=== PATIENT | male | born 1955 | race Caucasian/White ===

== ENCOUNTER 2020-08-16 15:07 | Outpatient (RCR) | payer MEDICARE, MEDICAID, SELFPAY | END 2021-02-11 13:53 | disposition home or self-care (01) | LOC: HO.WCC 15:07 | PROVIDERS: PCP Internal Medicine; Visit Provider Physician Assistant | DX: I87.333 Chronic venous hypertension (idiopathic) with ulcer and inflammation of bilateral lower extremity (principal); L97.821 Non-pressure chronic ulcer of other part of left lower leg limited to breakdown of skin; L97.811 Non-pressure chronic ulcer of other part of right lower leg limited to breakdown of skin; L89.610 Pressure ulcer of right heel, unstageable; L89.629 Pressure ulcer of left heel, unspecified stage; L89.899 Pressure ulcer of other site, unspecified stage; R53.81 Other malaise | CPT/HCPCS: 10140; 11042; 11045; 97597; 97598; 99204; 99212 ==

== ENCOUNTER 2020-08-23 18:07 | Inpatient (IN) | payer MEDICARE, MEDICAID, SELFPAY ==
[2020-08-23] VITALS (9 sets, daily range): BP systolic 85–137; BP diastolic 21–70; PULSE 44–64; RESP 16–23; TEMP 32.9–36.1; O2SAT 94–97; BMI 32.3
--- NOTE | 2020-08-23 | XR_ITS ---
EXAMINATION: XR CHEST CLINICAL INFORMATION: Central line placement COMPARISON: 01/07/2020 TECHNIQUE: Frontal view of the chest was obtained. FINDINGS: Right internal jugular central venous catheter terminates near the cavoatrial junction. Cardiac leads overlie the chest. Cervical fusion hardware noted. The lungs are well expanded. Central vascular prominence with diffuse interstitial prominence and mild bronchial wall thickening. No pneumothorax. No significant pleural effusion. No dense consolidation. The cardiomediastinal silhouette is prominent, with a calcified aorta. Advanced degenerative changes at the left glenohumeral joint. IMPRESSION: Right internal jugular central venous catheter terminates near the cavoatrial junction. No pneumothorax. Findings suggestive of interstitial edema.
--- NOTE | 2020-08-23 | CT_ITS ---
EXAMINATION: CT HEAD WITHOUT CONTRAST CLINICAL INFORMATION: Slurred speech for 3 days. COMPARISON: CT scan of the head 02/26/2020. TECHNIQUE: Contiguous axial imaging was performed from the skull base to vertex without intravenous administration of contrast. Coronal and sagittal reformatted images were generated at the technologist workstation. This CT examination was performed using dose optimization techniques as appropriate, variously including the following: *Automated exposure control *Adjustment of mA and/or kV according to patient size (this includes techniques or standardized protocols for targeted exams where dose is matched to indication/reason for exam; i.e. extremities or head) *Use of iterative reconstruction technique DLP: 831 mGy-cm FINDINGS: There is no evidence of acute intracranial hemorrhage or territorial infarction. No abnormal mass effect or midline shift is seen. Uribe to white matter differentiation is well preserved. No extra-axial fluid collections are identified. The ventricles and sulci are commensurately prominent consistent with diffuse volume loss, similar compared to prior imaging. There are also areas of low-attenuation the periventricular and subcortical white matter consistent with chronic microvascular ischemic changes. There are no acute osseous findings. There is hyperostosis frontalis interna. There are degenerative changes of the bilateral temporomandibular joints. The mastoid air cells and visualized paranasal sinuses are well-aerated. There are secondary ostia in the medial maxillary sinus segovia bilaterally. IMPRESSION: 1. There are no acute bleeds or territorial infarcts. No masses are demonstrated. 2. There are chronic microvascular ischemic changes and there is diffuse volume loss.
--- NOTE | 2020-08-23 19:25 | ECG_ITS ---
Test Reason : LOW HEART RAT Blood Pressure : / mmHG Vent. Rate : 048 BPM Atrial Rate : 064 BPM P-R Int : 000 ms QRS Dur : 116 ms QT Int : 442 ms P-R-T Axes : 000 -09 068 degrees QTc Int : 394 ms Poor data quality Sinus bradycardia with 1st degree A-V block Low voltage QRS Incomplete right bundle branch block Nonspecific ST and T wave abnormality Abnormal ECG When compared with ECG of 07-JAN-2020 20:21, Nonspecific T wave abnormality has replaced inverted T waves in Inferior leads Nonspecific T wave abnormality now evident in Lateral leads Heart rate has decreased MA interval has increased Referred By: Kayla Posadas Electronically Signed By:TINY MORIN MD
--- NOTE | 2020-08-23 19:36 | ED.GENADULT ---
HPI - General Adult General Chief complaint: Altered Mental Status Stated complaint: lethargy, hr 40's/50's Time Seen by Provider: 08/23/20 19:15 Source: EMS Mode of arrival: EMS Limitations: other ( developmental delay) History of Present Illness HPI narrative: patient is sent from a custodial via ambulance for slurry speech for several days , for low heart rate in the 40s to 50s, and for lethargy. EMS reports that the patient has had slurry speech for 3-4 days according to the staff from the custodial, however the EMS crew states that they know the patient well and he has speech is slurry at baseline. Patient is awake alert and states that he feels normal. It was noted that his heart rate ranges between 40 and 55. this is new for the patient per the staff at the custodial. Patient denies chest pain, no shortness of breath, no dizziness. MD complaint: Bradycardia Onset (ago): day(s) Radiation: non-radiation Severity: moderate Related Data Home Medications Medication Instructions Recorded Confirmed Lasix See Rx Instructions .ROUTE .COMPLEX 08/23/20 08/23/20 aluminum 1 ea TOPICAL BID 08/23/20 08/23/20 aspirin 81 mg PO DAILY 08/23/20 08/23/20 carbamazepine 1 tab PO BID 08/23/20 08/23/20 levothyroxine 50 mcg PO DAILY 08/23/20 08/23/20 multivitamin [Daily Vitamin] 1 tab PO DAILY 08/23/20 08/23/20 nystatin 1 applic TOPICAL BID 08/23/20 08/23/20 vitamin B complex 1 cap PO QAM 08/23/20 08/23/20 Allergies Allergy/AdvReac Type Severity Reaction Status Date / Time No Known Allergies Allergy Unverified 08/01/20 15:20 [No Known Allergies*] Review of Systems Review of Systems: Constitutional: No Weight loss, No Fever, No Chills, No Night Sweats, ENT/Mouth: No Hearing loss, No Ear Pain, No Nasal Congestion, No Sinus Pain, No Hoarseness, No sore throat, No Rhinorrhea, No Swallowing Difficulty Eyes: No Eye Pain, No Swelling, No Redness, No Foreign Body, No Discharge, No Vision Changes Cardiovascular: No Chest Pain, No SOB, No Dyspnea on Exertion, No Orthopnea, No Edema, No Palpitations Respiratory: No Cough, No Sputum, No Wheezing, No Smoke Exposure, No Dyspnea Gastrointestinal: No Nausea, No Vomiting, No Diarrhea, No Constipation, No abdominal Pain, No Hematochezia, No Melena Genitourinary: no irregular bleeding, No Dysuria, No Urinary Frequency, No Hematuria, No Urinary Incontinence, No Urgency, No Flank Pain, No Urinary Flow Changes, No Hesitancy Musculoskeletal: No joint pain, No Myalgias, No Joint Swelling Skin: No Skin Lesions, No rash Neuro: No Weakness, No Numbness, No Paresthesias, No Loss of Consciousness, No Dizziness, No Headache reported per patient, per custodial staff patient has very speech Psych: No Anxiety/Panic, No Depression, No SI/HI/AH/VH Heme/Lymph: No Bruising, No Bleeding,No Lymphadenopathy Endocrine: No Polyuria, No Polydipsia, No Temperature Intolerance [facility] Past Medical History Medical History (Updated 08/24/20 @ 00:52 by Kayla Posadas MD) Diabetes type 2, controlled DVT (deep venous thrombosis) Hypothyroidism Morbid obesity Social History Social History Advance Directives: No Advance Directives Information Provided: Yes Advance Directives Date on File: 08/16/20 Physical Exam Vital Signs and I&O and Narrative: Vital Signs and I&O: Vital Signs Temp 98.2 F 08/24/20 00:44 Pulse 72 08/24/20 00:44 Resp 20 08/24/20 00:44 BP 123/51 L 08/24/20 00:44 Pulse Ox 96 08/24/20 00:44 Intake & Output 08/23/20 08/23/20 08/24/20 06:59 18:59 06:59 Intake Total 1 Balance 1 Weight 102.058 kg 118.4 kg Intake: Intake, IV Amoun t 1 Piperacillin S odium/Tazobactam 50 / 50 3.375 gm In 0. 9 % Sodium Chloride 50 ml @ 100 mls/hr IV ONCE ONE Rx#:[id number] 0.9 % Sodium C hloride 1,000 ml 2000 / 1999 @ 999 mls/hr I VCONT .Q1H1M EDUARDO Rx#:[id number] Norepinephrine Bitartrate/NS 8 2.711 / 2.711 mg In 250 ml @ Per Protocol IVCONT .Q0M SC H Rx#:[id number] Body Mass Index 37.4 Appearance: Alert. Oriented X2 . No acute distress. Eyes: Pupils equal, round and reactive to light. ENT: Pharynx normal. Neck: Normal inspection. Neck supple. No lymph nodes noted. No crepitus CVS: Normal heart rate and rhythm. Pulses normal. Normal S1 and S2 Respiratory: No respiratory distress. Breath sounds normal. No Wheezing. No rales Abdomen: Soft and nontender. No rigidity. No distention. good BS x4 Skin: Skin cold, lower extremities erythematous, possible source of cellulitis Extremities: +4 pitting edema bilaterally , see above Neuro: No motor deficit. No sensory deficit. Moving all extermities. No slurred speech. Course Reevaluation(s) Reevaluation #1: patient's heart rate remains around 45-50, patient's blood pressure 100 systolic, asymptomatic. Patient is on a Ramana Hugger, labs and CT scan pending. Patient was started on empiric antibiotics and IV fluids. EKG shows a heart rate of 48, QTC of 394, rhythm is unclear due to artifact, nonspecific T abnormalities in leads III aVL and AVF Time: 00:54 Reevaluation #2: focused exam: Patient is no stable, heart rate 68, blood pressure 122 systolic, warm, temperature 97 degrees F, good capillary refill, less than 2 seconds. Procedures Central Line Placement Right IJ: Time Out Performed: Yes Patient Placed on Monitor/Pulse Ox: Yes MD Prep: mask, gown and gloves Central Line Prep: Chlorhexidine scrub Local Anesthetic: lidocaine 1% Ultrasound Used for Placement: Yes Central Line Lumen Inserted: triple Post Procedure: sutured in place, good blood return, all ports aspirated, flushed, capped and sterile dressing applied Post Procedure X-Ray: tip of catheter in good position and no pneumothorax seen Patient Tolerated Procedure: well and no complications Complications: none Medical Decision Making MDM Narrative Medical decision making narrative: patient's ideal body weight is 73 kilos, equivalent to 1460 mL for sepsis IV fluid requirement. Lab Data Result diagrams: 08/23/20 19:41 08/23/20 19:41 Labs: Lab Results 08/23/20 08/23/20 08/23/20 Range/Units 19:41 19:41 19:41 WBC 3.8 L (4.8-10.8) X10*3/uL RBC 3.04 L (4.60-5.80) X10*6/uL Hgb 9.2 L (14.0-18.0) g/dl Hct 28.0 L (42-52) % MCV 92.1 (80-98) fL MCH 30.3 (27.0-33.0) pg MCHC 32.9 (31.0-36.0) g/dl RDW 15.7 (11.0-16.0) % Plt Count 85 L (160-400) X10*3/uL MPV 10.8 (9.4-12.4) fL Immature Gran % (Auto) 0.5 H (0.0-0.4) % Neut % (Auto) 78.1 H (45-73) % Lymph % (Auto) 14.1 L (20-40) % [place] % (Auto) 6.0 (2-11) % Eos % (Auto) 1.3 (0-4) % Baso % (Auto) 0.0 (0-2) % Lymph # (Auto) 0.5 L (1.2-4.9) X10*3/uL [place] # (Auto) 0.2 (0.1-1.2) X10*3/uL Eos # (Auto) 0.1 (0.0-0.4) X10*3/uL Baso # (Auto) 0.0 (0.0-0.2) X10*3/uL Abs Immat Gran (auto) 0.02 (0.00-0.03) X10*3/uL Absolute Neuts (auto) 3.0 (2.0-8.3) X10*3/uL Absolute Nucleated RBC 0.000 (0.0-0.012) X10*3/uL Nucleated RBC % (auto) 0.0 (0.0-0.2) /100WBC Smear Tech's Comments VERIFIED PT 11.7 (10.8-13.0) SEC INR 1.0 (0.9-1.1) APTT 51.1 H (24.1-38.0) SEC Sodium (135-145) mmol/L Potassium (3.3-5.1) mmol/l Chloride (96-108) mmol/L Carbon Dioxide (22-29) mmol/L Anion Gap (12-20) BUN (9-16) mg/dL Creatinine (0.5-1.4) mg/dL Estim Creat Clear Calc Estimated GFR Random Glucose (60-115) mg/dL Lactic Acid (0.5-2.0) mmol/L Calcium (8.4-10.2) mg/dL Total Bilirubin 0.2 (0.0-1.0) mg/dL Direct Bilirubin 0.2 (0.0-0.5) mg/dL AST 31 (5-37) U/L ALT 32 (0-40) U/L Alkaline Phosphatase 91 (39-117) U/L B-Natriuretic Peptide (<100) pg/mL Total Protein 6.0 L (6.5-8.0) g/dL Albumin 3.6 (3.5-5.0) g/dL TSH (0.32-4.0) mIU/mL Urine Color Urine Appearance Urine pH (5.0-8.0) Ur Specific Kimberly (1.005-1.025) Urine Protein (NEG-TRACE) MG/DL Urine Glucose (UA) (NEG) MG/DL Urine Ketones (NEG) MG/DL Urine Blood (NEG) Urine Nitrite (NEG) Ur Leukocyte Esterase (NEG) 08/23/20 08/23/20 08/23/20 Range/Units 19:41 19:41 19:41 WBC (4.8-10.8) X10*3/uL RBC (4.60-5.80) X10*6/uL Hgb (14.0-18.0) g/dl Hct (42-52) % MCV (80-98) fL MCH (27.0-33.0) pg MCHC (31.0-36.0) g/dl RDW (11.0-16.0) % Plt Count (160-400) X10*3/uL MPV (9.4-12.4) fL Immature Gran % (Auto) (0.0-0.4) % Neut % (Auto) (45-73) % Lymph % (Auto) (20-40) % [place] % (Auto) (2-11) % Eos % (Auto) (0-4) % Baso % (Auto) (0-2) % Lymph # (Auto) (1.2-4.9) X10*3/uL [place] # (Auto) (0.1-1.2) X10*3/uL Eos # (Auto) (0.0-0.4) X10*3/uL Baso # (Auto) (0.0-0.2) X10*3/uL Abs Immat Gran (auto) (0.00-0.03) X10*3/uL Absolute Neuts (auto) (2.0-8.3) X10*3/uL Absolute Nucleated RBC (0.0-0.012) X10*3/uL Nucleated RBC % (auto) (0.0-0.2) /100WBC Smear Tech's Comments PT (10.8-13.0) SEC INR (0.9-1.1) APTT (24.1-38.0) SEC Sodium 136 (135-145) mmol/L Potassium 5.4 H (3.3-5.1) mmol/l Chloride 103 (96-108) mmol/L Carbon Dioxide 29 (22-29) mmol/L Anion Gap 9 L (12-20) BUN 17 H (9-16) mg/dL Creatinine 0.66 (0.5-1.4) mg/dL Estim Creat Clear Calc 133.5 Estimated GFR > 60 Random Glucose 87 (60-115) mg/dL Lactic Acid 0.5 (0.5-2.0) mmol/L Calcium 10.1 (8.4-10.2) mg/dL Total Bilirubin (0.0-1.0) mg/dL Direct Bilirubin (0.0-0.5) mg/dL AST (5-37) U/L ALT (0-40) U/L Alkaline Phosphatase (39-117) U/L B-Natriuretic Peptide 218 H (<100) pg/mL Total Protein (6.5-8.0) g/dL Albumin (3.5-5.0) g/dL TSH (0.32-4.0) mIU/mL Urine Color Urine Appearance Urine pH (5.0-8.0) Ur Specific Kimberly (1.005-1.025) Urine Protein (NEG-TRACE) MG/DL Urine Glucose (UA) (NEG) MG/DL Urine Ketones (NEG) MG/DL Urine Blood (NEG) Urine Nitrite (NEG) Ur Leukocyte Esterase (NEG) 08/23/20 08/23/20 Range/Units 19:41 20:49 WBC (4.8-10.8) X10*3/uL RBC (4.60-5.80) X10*6/uL Hgb (14.0-18.0) g/dl Hct (42-52) % MCV (80-98) fL MCH (27.0-33.0) pg MCHC (31.0-36.0) g/dl RDW (11.0-16.0) % Plt Count (160-400) X10*3/uL MPV (9.4-12.4) fL Immature Gran % (Auto) (0.0-0.4) % Neut % (Auto) (45-73) % Lymph % (Auto) (20-40) % [place] % (Auto) (2-11) % Eos % (Auto) (0-4) % Baso % (Auto) (0-2) % Lymph # (Auto) (1.2-4.9) X10*3/uL [place] # (Auto) (0.1-1.2) X10*3/uL Eos # (Auto) (0.0-0.4) X10*3/uL Baso # (Auto) (0.0-0.2) X10*3/uL Abs Immat Gran (auto) (0.00-0.03) X10*3/uL Absolute Neuts (auto) (2.0-8.3) X10*3/uL Absolute Nucleated RBC (0.0-0.012) X10*3/uL Nucleated RBC % (auto) (0.0-0.2) /100WBC Smear Tech's Comments PT (10.8-13.0) SEC INR (0.9-1.1) APTT (24.1-38.0) SEC Sodium (135-145) mmol/L Potassium (3.3-5.1) mmol/l Chloride (96-108) mmol/L Carbon Dioxide (22-29) mmol/L Anion Gap (12-20) BUN (9-16) mg/dL Creatinine (0.5-1.4) mg/dL Estim Creat Clear Calc Estimated GFR Random Glucose (60-115) mg/dL Lactic Acid (0.5-2.0) mmol/L Calcium (8.4-10.2) mg/dL Total Bilirubin (0.0-1.0) mg/dL Direct Bilirubin (0.0-0.5) mg/dL AST (5-37) U/L ALT (0-40) U/L Alkaline Phosphatase (39-117) U/L B-Natriuretic Peptide (<100) pg/mL Total Protein (6.5-8.0) g/dL Albumin (3.5-5.0) g/dL TSH 3.24 (0.32-4.0) mIU/mL Urine Color YELLOW Urine Appearance CLEAR Urine pH 5.5 (5.0-8.0) Ur Specific Kimberly 1.020 (1.005-1.025) Urine Protein NEG (NEG-TRACE) MG/DL Urine Glucose (UA) NEG (NEG) MG/DL Urine Ketones NEG (NEG) MG/DL Urine Blood NEG (NEG) Urine Nitrite NEG (NEG) Ur Leukocyte Esterase NEG (NEG) Critical Care Time Critical Care Time Critical Care Time: Yes Total Critical Care Time: 120 Attestation: Discharge Plan Discharge Clinical Impression: Altered mental status, Sepsis associated hypotension, Cellulitis, Thrombocytopenia Patient Disposition: Admitted As Inpatient Prescriptions: No Action levothyroxine 50 mcg tablet 50 mcg PO DAILY RF: 0 aspirin 81 mg PO DAILY RF: 0 multivitamin [Daily Vitamin] Tablet 1 tab PO DAILY RF: 0 carbamazepine 400 mg tablet extended release 12 hr 1 tab PO BID RF: 0 nystatin 100,000 unit/gram powder 1 applic topical BID RF: 0 vitamin B complex Capsule 1 cap PO QAM RF: 0 Lasix See Rx Instructions .ROUTE .COMPLEX RF: 0 aluminum Paste 1 ea TOPICAL BID RF: 0
[2020-08-23 20:10] LABS: Hemoglobin 9.2 g/dl (14.0-18.0); MANUAL DIFF FLAG SCAN; PLT CLUMP 1; Red Cell Distribution Width 15.7 % (11.0-16.0); SCAN SMEAR FLAG 1
--- NOTE | 2020-08-23 20:10 | PC.NURSE ---
duane from detention for update. [phone]
[2020-08-23 20:12] LABS: Eosinophils Absolute Auto 0.1 X10*3/uL (0.0-0.4); Eosinophils Percent Auto 1.3 % (0-4); Imm Gran Abs Auto 0.02 X10*3/uL (0.00-0.03); Imm Gran Pct Auto 0.5 % (0.0-0.4); Lymphocytes Absolute Auto 0.5 X10*3/uL (1.2-4.9); Lymphocytes Percent Auto 14.1 % (20-40); Mean Corpuscular HGB Conc 32.9 g/dl (31.0-36.0); Mean Corpuscular Hemoglobin 30.3 pg (27.0-33.0); Mean Corpuscular Volume 92.1 fL (80-98); Mean Platelet Volume 10.8 fL (9.4-12.4); Monocytes Absolute Auto 0.2 X10*3/uL (0.1-1.2); Neutrophils Percent Auto 78.1 % (45-73); Red Blood Count 3.04 X10*6/uL (4.60-5.80); White Blood Count 3.8 X10*3/uL (4.8-10.8)
[2020-08-23 20:24] LABS: Platelet Count 85 X10*3/uL (160-400)
--- NOTE | 2020-08-23 20:31 | PC.NURSE ---
pt awake, denies any complaints at this time. pt confused to time and place. pt on monitor with hr of 46. Henley inserted with temp probe without difficulty, sample sent to lab. temp at this time 92.3 aware. blood cultures obtained at this time. awaiting further orders.
[2020-08-23 20:33] LABS: Lactic Acid 0.5 mmol/L (0.5-2.0)
[2020-08-23 20:34] LABS: Partial Thromboplastin Time 51.1 SEC (24.1-38.0)
[2020-08-23 20:37] LABS: Alanine Aminotransferase 32 U/L (0-40); Albumin Level 3.6 g/dL (3.5-5.0); Alkaline Phosphatase 91 U/L (39-117); Aspartate Amino Transferase 31 U/L (5-37); Bilirubin Direct 0.2 mg/dL (0.0-0.5); Bilirubin Total 0.2 mg/dL (0.0-1.0)
[2020-08-23 20:38] LABS: Prothrombin Time 11.7 SEC (10.8-13.0)
[2020-08-23 20:41] LABS: Anion Gap 9 (12-20); Blood Urea Nitrogen 17 mg/dL (9-16); Calcium 10.1 mg/dL (8.4-10.2); Carbon Dioxide 29 mmol/L (22-29); Chloride 103 mmol/L (96-108); Creatinine Clr Calc Pharmacy 133.5; Estimated Glomerular Filt Rate > 60; Glucose Random 87 mg/dL (60-115); Potassium 5.4 mmol/l (3.3-5.1); Sodium 136 mmol/L (135-145)
[2020-08-23 20:50] LABS: SLIDE REVIEW VERIFIED
[2020-08-23 20:59] LABS: Glucose Urine UA NEG (NEG); Leukocyte Esterase Urine NEG (NEG); Nitrite Urine NEG (NEG); PH 5.5 (5.0-8.0); Urine Blood NEG (NEG); Urine Ketones NEG (NEG); Urine Protein NEG (NEG-TRACE)
[2020-08-23 21:02] LABS: Appearance Urine CLEAR; Color Urine YELLOW
[2020-08-23 21:33] LABS: TSH reflex Free T4 3.24 mIU/mL (0.32-4.0)
[2020-08-23] MEDS: 0.9 % Sodium Chloride 1,000 ML 999 ML IVCONT ×2 (21:37→21:41)
[2020-08-23] MEDS: Piperacillin Sodium/Tazobactam 3.375 GM in 0.9 % Sodium Chloride 50 ML IV (21:47)
--- NOTE | 2020-08-23 21:49 | PC.NURSE ---
When obtaining VS found pt to be hypotensive. IV was previously established, started IV fluids as previously ordered and gave antibiotics. Updated MD to PT vital signs and Updated bedside RN> Will continue to monitor at bedside
[2020-08-23 22:09] LABS: B Type Natriuretic Peptide 218 pg/mL (<100)
--- NOTE | 2020-08-23 23:00 | PC.NURSE ---
MD inserted 7french, 16cm central line to right IJ
[2020-08-24] VITALS (28 sets, daily range): BP systolic 94–132; BP diastolic 35–68; PULSE 10–75; RESP 10–22; TEMP 35.8–36.8; O2SAT 90–97; BMI 37.4; BMI 35.9
--- NOTE | 2020-08-24 | CT_ITS ---
EXAMINATION: CT CHEST WITHOUT CONTRAST CLINICAL INFORMATION: Sepsis. Left lower lobar pneumonia. COMPARISON: Chest radiograph done on 08/23/2020. TECHNIQUE: Multidetector volumetric CT imaging of the chest was done. Axial MIP volume rendering provided. Sagittal and coronal reformatted images were obtained. This CT examination was performed using dose optimization techniques as appropriate, variously including the following: *Automated exposure control *Adjustment of mA and/or kV according to patient size (this includes techniques or standardized protocols for targeted exams where dose is matched to indication/reason for exam; i.e. extremities or head) *Use of iterative reconstruction technique DLP: 602.0 mGy-cm FINDINGS: BUILDING PRESSURE WASHER: Bibasilar airspace disease is present (left greater than right). Right-sided central line is present with its tip seen projecting at the cavoatrial junction. LUNGS: Bibasilar airspace disease is present (left greater than right). Specific note is made of hyperdense material within the lung robledo, likely represent aspiration. No dense airspace consolidation. The tracheobronchial tree is patent. MEDIASTINUM: Right IJ central catheter is noted with its tip seen projecting at the cavoatrial junction. Mild cardiomegaly is noted. The mediastinum is slightly displaced to the left. There are no definite pathologically enlarged mediastinal and/or hilar lymphadenopathy identified on this nonenhanced study. PLEURA: There is no pleural effusion. No pleural mass or thickening. AXILLA: No lymphadenopathy. UPPER ABDOMEN: The gallbladder appears contracted with radiopaque gallstones. Rim calcified perihepatic mass is noted around the right lobe measuring approximately 4.0 x 2.0 cm (image 456 series 5), may represent calcified subcapsular hematoma or other processes. Please correlate clinically. There is no adrenal mass present. 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 IMPRESSION: 1. Bibasilar hyperdense airspace opacities are noted (left greater than right), likely represent aspiration pneumonia. 2. No CT evidence of any pleural or pericardial effusion. 3. The gallbladder appears contracted containing radiopaque gallstones. Rim calcified perihepatic mass is noted around the right lobe of the liver, indeterminate etiology, appears chronic.
--- NOTE | 2020-08-24 | US_ITS ---
EXAMINATION: BILATERAL LOWER EXTREMITY VENOUS ULTRASOUND CLINICAL INFORMATION: History of DVT. Off Coumadin. COMPARISON: None. TECHNIQUE: Doppler spectral analysis and color flow Doppler imaging was performed of the bilateral lower extremity. Compression and augmentation maneuvers were performed. Slightly technically limited since the procedure was done portably and due to patient's body habitus and presence of soft tissue edema. FINDINGS: The bilateral common femoral, femoral, popliteal and calf veins were well-identified and normal. They demonstrate normal compressibility and color fill-in. IMPRESSION: No evidence for bilateral lower extremity deep vein thrombosis.
--- NOTE | 2020-08-24 00:27 | PC.NURSE ---
tai fragoso/yolanda by this rn for temp of 98.2. primary rn aware
--- NOTE | 2020-08-24 01:17 | P.HPCC_ITS ---
History of Present Illness Date of Service: 08/24/20 <PHYLLIS Baxter - Last Filed: 08/24/20 04:07> Chief Complaint: Altered Mental status <PHYLLIS Baxter - Last Filed: 08/24/20 04:07> Patient is a 64-year-old male with a past medical history of hypertension, hypothyroid, intellectual disability, DVT was on warfarin unclear if he still is, diabetes type 2, anemia, morbid obesity and multiple falls who lives in a alf. He was BIBA to the ED because the alf said he was having 3-4 days of slurred speech, low heart rate in the 40s and 50s and lethargy. the EMS crew knows the patient well and they said he is speaking in at his baseline. The patient stated he felt well and normal. In the ED, patient's vital signs were notable for hypothermia at 91.2 degrees F, heart rate of 44 and a BP of 87/21. Patient's labs were notable for low WBC 3.8, low RBC 3.04, low H&H 9.2 & 28 respectively. Platelets were low at 85. PT/INR were wnl but aPTT was elevated at 51.1. chemistries were WNL with the exception of potassium slightly elevated at 5.4 and BUN slightly elevated at 17. BNP was elevated at 218 and TSH was WNL at 3.24. urinalysis was negative for infection. Head CT was negative for anything acute and CXR showed interstitial edema (this was done after pt rec'd 1.5L of IVF). While in the ED, the patient received 1.5 L of fluids as per sepsis protocol, he was also placed on a Ramana Hugger. A TLC was placed and pt is on a Levophed drip. His temperature, BP and HR have normalized. He was also given a dose of Zosyn, source of infection is unknown yet. The case discussed with Dr. Flores, patient will be admitted to the ICU, he agreed with assessment and plan. <PHYLLIS Baxter - Last Filed: 08/24/20 04:07> Review of Systems Review of Systems: Constitutional: No Weight loss, No Fever, No Chills, No Night Sweats, ENT/Mouth: No Hearing loss, No Ear Pain, No Nasal Congestion, No Sinus Pain, No Hoarseness, No sore throat, No Rhinorrhea, No Swallowing Difficulty Eyes: No Eye Pain, No Swelling, No Redness, No Foreign Body, No Discharge, No Vision Changes Cardiovascular: No Chest Pain, No SOB, No Dyspnea on Exertion, No Orthopnea, No Edema, No Palpitations Respiratory: No Cough, No Sputum, No Wheezing, No Smoke Exposure, No Dyspnea Gastrointestinal: No Nausea, No Vomiting, No Diarrhea, No Constipation, No abdominal Pain, No Hematochezia, No Melena Genitourinary: no irregular bleeding, No Dysuria, No Urinary Frequency, No Hematuria, No Urinary Incontinence, No Urgency, No Flank Pain, No Urinary Flow Changes, No Hesitancy Musculoskeletal: No joint pain, No Myalgias, No Joint Swelling Skin: No Skin Lesions, No rash Neuro: No Weakness, No Numbness, No Paresthesias, No Loss of Consciousness, No Dizziness, No Headache reported per patient, per alf staff patient has very speech Psych: No Anxiety/Panic, No Depression, No SI/HI/AH/VH Heme/Lymph: No Bruising, No Bleeding,No Lymphadenopathy Endocrine: No Polyuria, No Polydipsia, No Temperature Intolerance <PHYLLIS Baxter - Last Filed: 08/24/20 04:07> [facility] Past Medical History Medical History: Medical History (Updated 08/24/20 @ 03:34 by PHYLLIS Baxter) Anemia Diabetes type 2, controlled DVT (deep venous thrombosis) Hypertension Hypothyroidism Morbid obesity Venous insufficiency of both lower extremities <PHYLLIS Baxter - Last Filed: 08/24/20 04:07> Functional capacity: wheelchair bound <PHYLLIS Baxter - Last Filed: 08/24/20 04:07> Family History Family history: reviewed and not pertinent <PHYLLIS Baxter - Last Filed: 08/24/20 04:07> Social History Social History: Social History (Updated 08/24/20 @ 02:24 by PHYLLIS Baxter) Housing Other:: alf Alcohol intake: never Smoking Status: Never smoker Use of substances other than those prescribed or required for medical reasons: No Currently Displaying Signs/Symptoms of Drug Intoxication Withdrawal: No Advance Directives: No Advance Directives Information Provided: Yes Advance Directives Date on File: 08/16/20 Do you have thoughts of harming others: None Do you have a plan to hurt others: No Plan Current occupational status: disabled <PHYLLIS Baxter - Last Filed: 08/24/20 04:07> Travel History History of recent travel: No <PHYLLIS Baxter - Last Filed: 08/24/20 04:07> Meds Allergies/Adverse reactions: Allergies Allergy/AdvReac Type Severity Reaction Status Date / Time No Known Allergies Allergy Verified 08/24/20 07:57 [No Known Allergies*] <PHYLLIS Baxter - Last Filed: 08/24/20 04:07> Home medications: Home Medications Medication Instructions Recorded Confirmed Type aluminum 1 ea TOPICAL BID 08/23/20 08/23/20 History carbamazepine 400 mg PO BID 08/23/20 08/24/20 History furosemide 40 mg MOWEFR@0800 08/23/20 08/24/20 History levothyroxine 50 mcg PO DAILY 08/23/20 08/23/20 History multivitamin [Daily Vitamin] 1 tab PO DAILY 08/23/20 08/23/20 History nystatin 1 applic TOPICAL BID 08/23/20 08/23/20 History vitamin B complex 1 cap PO QAM 08/23/20 08/23/20 History acetaminophen 650 mg PO Q4H PRN 08/24/20 08/24/20 History aspirin 81 mg PO DAILY 08/24/20 08/24/20 History clotrimazole [Mycelex OTC] 1 applic TOPICAL BID PRN 08/24/20 08/24/20 History terbinafine HCl [Lamisil] 1 applic TOPICAL BEDTIME 08/24/20 08/24/20 History zinc oxide 1 applic TOPICAL BID PRN 08/24/20 08/24/20 History <PHYLLIS Baxter - Last Filed: 08/24/20 04:07> Physical Exam Vital Signs and I&O and Narrative: Vital Signs and I&O: Temp Pulse Resp BP Pulse Ox 08/24/20 01:29 98.2 F 71 18 120/53 L 08/24/20 00:44 98.2 F 72 20 123/51 L 96 08/24/20 00:28 98.2 F 69 20 122/52 L 95 08/24/20 00:17 109/48 L 08/24/20 00:13 97.9 F 72 18 94/35 L 97 08/23/20 23:46 88/37 L 08/23/20 23:34 97.0 F 63 20 100/37 L 94 08/23/20 23:18 96.4 F L 63 23 H 101/34 L 95 08/23/20 23:01 95.9 F L 64 17 94/35 L 95 08/23/20 22:00 94.3 F L 51 16 85/35 L 97 08/23/20 21:51 94.3 F L 51 16 85/35 L 97 08/23/20 21:30 93.7 F L 49 L 17 87/21 L 97 08/23/20 20:35 46 L 18 08/23/20 18:30 91.2 F L 44 L 20 100/47 L Intake & Output 08/23/20 08/23/20 08/24/20 06:59 18:59 06:59 Intake Total / 1 Balance / 1 Weight 102.058 kg 118.4 kg Intake: Intake, IV Amoun t 1 Piperacillin S odium/Tazobactam 50 / 50 3.375 gm In 0. 9 % Sodium Chloride 50 ml @ 100 mls/hr IV ONCE ONE Rx#:[id number] 0.9 % Sodium C hloride 1,000 ml 2000 / 2000 @ 999 mls/hr I VCONT .Q1H1M EDUARDO Rx#:[id number] Norepinephrine Bitartrate/NS 8 2.711 / 2.711 mg In 250 ml @ Per Protocol IVCONT .Q0M SC H Rx#:[id number] Body Mass Index 37.4 <PHYLLIS Baxter - Last Filed: 08/24/20 04:07> Const: General: no acute distress, alert and awake <PHYLLIS Baxter Last Filed: 08/24/20 04:07> Nutritional Appearance: obese <PHYLLIS Baxter Last Filed: 08/24/20 04:07> HENMT: Head: Yes normal to inspection <Lisa Nichole AK - Last Filed: 08/24/20 04:07> Eyes: General: appearance normal, both eyes and all related structures <PHYLLIS Baxter - Last Filed: 08/24/20 04:07> Neck: Neck: Yes normal visual inspection and Yes supple <iLsa Nichole AK - Last Filed: 08/24/20 04:07> Chest: Chest palpation & inspection: normal inspection of the chest <Lisa Nichole AK - Last Filed: 08/24/20 04:07> Resp: Effort & Inspection: normal respiratory effort and able to speak in complete sentences <Lisa Nichole AK - Last Filed: 08/24/20 04:07> Auscultation: clear to auscultation bilaterally <Lisa Nichole AK - Last Filed: 08/24/20 04:07> Cardio: Rate: regular rate <PHYLLIS Baxter - Last Filed: 08/24/20 04:07> Rhythm: regular rhythm <Lisa Nichole AK - Last Filed: 08/24/20 04:07> Heart sounds: S1 normal heart sound present and S2 normal heart sound present <Lisa Nichole AK - Last Filed: 08/24/20 04:07> GI: Inspection: Yes normal to inspection <Lisa Nichole AK - Last Filed: 08/24/20 04:07> Palpation (GI): Soft to palpation <Lisa Nichole AK - Last Filed: 08/24/20 04:07> Auscultation: normal bowel sounds <PHYLLIS Baxter - Last Filed: 08/24/20 04:07> Skin: Wounds: wounds noted (LLE lateral side stage 3 ulcer approx 7cm x 5cm) <PHYLLIS Baxter - Last Filed: 08/24/20 04:07> Extrem: General: Yes no calf tenderness, Yes edema (2+ pitting edema bilateral LE) and Yes venous stasis dermatitis (bilateral LE) <PHYLLIS Baxter - Last Filed: 08/24/20 04:07> Results Labs Labs: Laboratory Tests 08/23/20 08/23/20 08/23/20 19:41 19:41 19:41 WBC 3.8 L RBC 3.04 L Hgb 9.2 L Hct 28.0 L MCV 92.1 MCH 30.3 MCHC 32.9 RDW 15.7 Plt Count 85 L MPV 10.8 Immature Gran % (Auto) 0.5 H Neut % (Auto) 78.1 H Lymph % (Auto) 14.1 L [place] % (Auto) 6.0 Eos % (Auto) 1.3 Baso % (Auto) 0.0 Lymph # (Auto) 0.5 L [place] # (Auto) 0.2 Eos # (Auto) 0.1 Baso # (Auto) 0.0 Abs Immat Gran (auto) 0.02 Absolute Neuts (auto) 3.0 Absolute Nucleated RBC 0.000 Nucleated RBC % (auto) 0.0 Smear Tech's Comments VERIFIED PT 11.7 INR 1.0 APTT 51.1 H Sodium Potassium Chloride Carbon Dioxide Anion Gap BUN Creatinine Estim Creat Clear Calc Estimated GFR Random Glucose Lactic Acid Calcium Total Bilirubin 0.2 Direct Bilirubin 0.2 AST 31 ALT 32 Alkaline Phosphatase 91 B-Natriuretic Peptide Total Protein 6.0 L Albumin 3.6 TSH Urine Color Urine Appearance Urine pH Ur Specific [place] Urine Protein Urine Glucose (UA) Urine Ketones Urine Blood Urine Nitrite Ur Leukocyte Esterase 08/23/20 08/23/20 08/23/20 19:41 19:41 19:41 WBC RBC Hgb Hct MCV MCH MCHC RDW Plt Count MPV Immature Gran % (Auto) Neut % (Auto) Lymph % (Auto) [place] % (Auto) Eos % (Auto) Baso % (Auto) Lymph # (Auto) [place] # (Auto) Eos # (Auto) Baso # (Auto) Abs Immat Gran (auto) Absolute Neuts (auto) Absolute Nucleated RBC Nucleated RBC % (auto) Smear Tech's Comments PT INR APTT Sodium 136 Potassium 5.4 H Chloride 103 Carbon Dioxide 29 Anion Gap 9 L BUN 17 H Creatinine 0.66 Estim Creat Clear Calc 133.5 Estimated GFR > 60 Random Glucose 87 Lactic Acid 0.5 Calcium 10.1 Total Bilirubin Direct Bilirubin AST ALT Alkaline Phosphatase B-Natriuretic Peptide 218 H Total Protein Albumin TSH Urine Color Urine Appearance Urine pH Ur Specific [place] Urine Protein Urine Glucose (UA) Urine Ketones Urine Blood Urine Nitrite Ur Leukocyte Esterase 08/23/20 08/23/20 19:41 20:49 WBC RBC Hgb Hct MCV MCH MCHC RDW Plt Count MPV Immature Gran % (Auto) Neut % (Auto) Lymph % (Auto) [place] % (Auto) Eos % (Auto) Baso % (Auto) Lymph # (Auto) [place] # (Auto) Eos # (Auto) Baso # (Auto) Abs Immat Gran (auto) Absolute Neuts (auto) Absolute Nucleated RBC Nucleated RBC % (auto) Smear Tech's Comments PT INR APTT Sodium Potassium Chloride Carbon Dioxide Anion Gap BUN Creatinine Estim Creat Clear Calc Estimated GFR Random Glucose Lactic Acid Calcium Total Bilirubin Direct Bilirubin AST ALT Alkaline Phosphatase B-Natriuretic Peptide Total Protein Albumin TSH 3.24 Urine Color YELLOW Urine Appearance CLEAR Urine pH 5.5 Ur Specific [place] 1.020 Urine Protein NEG Urine Glucose (UA) NEG Urine Ketones NEG Urine Blood NEG Urine Nitrite NEG Ur Leukocyte Esterase NEG <PHYLLIS Baxter - Last Filed: 08/24/20 04:07> Assessment and Plan (1) Altered mental status: Start date: 08/23/20 <PHYLLIS Baxter - Last Filed: 08/24/20 04:07> Qualifiers: Altered mental status type: disorientation Qualified Code(s): R41.0 - Disorientation, unspecified <PHYLLIS Baxter - Last Filed: 08/24/20 04:07> Status: Acute <PHYLLIS Baxter - Last Filed: 08/24/20 04:07> patient appears alert an oriented and per EMS crew at his baseline for speech. patient does have an intellectual disability. Monitor. <PHYLLIS Baxter - Last Filed: 08/24/20 04:07> (2) Sepsis associated hypotension: Start date: 08/23/20 <PHYLLIS Baxter - Last Filed: 08/24/20 04:07> Status: Acute <PHYLLIS Baxter Last Filed: 08/24/20 04:07> On Levophed, we will give a dose of Vanco, get a respiratory panel, influenza A and B, RSV and COVID testing. continue to monitor VS <PHYLLIS Baxter - Last Filed: 08/24/20 04:07> (3) Cellulitis: Start date: 08/23/20 <PHYLLIS Baxter - Last Filed: 08/24/20 04:07> Qualifiers: Laterality: unspecified laterality Site of cellulitis: extremity Site of cellulitis of extremity: lower extremity Qualified Code(s): L03.119 - Cellulitis of unspecified part of limb <Lisa Nichole PA - Last Filed: 08/24/20 04:07> Problem details: possible cellulitis on LLE, pt had a similar presentation with hypothermia to [facility] [place] 12/2019, end result was cellulitis, was on vanco for 3 days then PO doxy <Lisa Nichole PA - Last Filed: 08/24/20 04:07> Status: Acute <PHYLLIS Baxter - Last Filed: 08/24/20 04:07> Continue Vanco <Lisa Nichole PA - Last Filed: 08/24/20 04:07> (4) Pancytopenia: Start date: 08/23/20 <PHYLLIS Baxter - Last Filed: 08/24/20 04:07> Problem details: as per labs <PHYLLIS Baxter - Last Filed: 08/24/20 04:07> Status: Acute <PHYLLIS Baxter - Last Filed: 08/24/20 04:07> Monitor labs <PHYLLIS Baxter - Last Filed: 08/24/20 04:07> (5) Hypothyroidism: Status: Chronic <PHYLLIS Baxter - Last Filed: 08/24/20 04:07> Continue Levothyroxine, TSH WNL. <PHYLLIS Baxter - Last Filed: 08/24/20 04:07> (6) Venous insufficiency of both lower extremities: Problem details: patient evaluated in December [address] Rios, now has left LE stage 3 ulcer <PHYLLIS Baxter - Last Filed: 08/24/20 04:07> Status: Acute <PHYLLIS Baxter - Last Filed: 08/24/20 04:07> wet to dry dressing and keep covered, ? wound care consult <PHYLLIS Baxter - Last Filed: 08/24/20 04:07>
--- NOTE | 2020-08-24 01:29 | PC.NURSE ---
ICU UNABLE TO TAKE REPORT, WILL RETURN CALL.
[2020-08-24 02:50] LABS: SARS COV2 PCR INHOUSE NEGATIVE (Negative)
[2020-08-24 06:05] LABS: Influenza A PCR NEGATIVE (Negative); Influenza B PCR NEGATIVE (Negative); Resp Syncy Virus RNA Qual PCR NEGATIVE (Negative)
--- NOTE | 2020-08-24 06:25 | PC.NURSE ---
admit [id number] from er dept...awake..converse with slow slurred speech...disoriented to time/recent events....respirations easy..sao2 96-97% room air...right ij tlc with levophed 0.03 mcg/kg/min...bp stable...wallace yellow urine...remains off warming blanket with normal temperature..nsr/s.renetta with 1st-degree av-block..hr 56-68..rare pvc..denies pain or discomfort..groin folds excoriated...lower legs reddened and edematous...left lower lateral leg with 7x5cm open wound with purulent drainGE..ICU PA PRESENT..PHOTOS TAKEN...WOUND COVERED WITH WET-DRY DRESSING PER PA
[2020-08-24 08:20] LABS: Adenovirus PCR Not Detected (Not Detect.); Bordetella parapertussis PCR Not Detected (Not Detect.); Bordetella pertussis PCR Not Detected (Not Detect.); Chlamydia pneumoniae PCR Not Detected (Not Detect.); Coronavirus 229E PCR Not Detected (Not Detect.); Coronavirus HKU1 PCR Not Detected (Not Detect.); Coronavirus NL63 PCR Not Detected (Not Detect.); Coronavirus OC43 PCR Not Detected (Not Detect.); Human metapneumovirus PCR Not Detected (Not Detect.); Influenza A PCR Not Detected (Not Detect.); Influenza B PCR Not Detected (Not Detect.); Mycoplasma pneumoniae PCR Not Detected (Not Detect.); Parainfluenza 1 PCR Not Detected (Not Detect.); Parainfluenza 2 PCR Not Detected (Not Detect.); Parainfluenza 3 PCR Not Detected (Not Detect.); Parainfluenza 4 PCR Not Detected (Not Detect.); RSV PCR Not Detected (Not Detect.); Rhino/Enterovirus PCR Not Detected (Not Detect.); SARS-CoV-2 PCR Not Detected (Not Detect.)
[2020-08-24 08:23] LABS: B Type Natriuretic Peptide 240 pg/mL (<100)
[2020-08-24 08:40] LABS: Erythrocyte Sedimentation Rate 19 MM/HR (0-15)
[2020-08-24 08:43] LABS: Red Cell Distribution Width 15.9 % (11.0-16.0)
[2020-08-24 08:44] LABS: Base Excess VBG 1.8 mmol/L; Blood Gas Serial # 5414; HCO3 VBG 29 mmol/L; Oxygen Saturation VBG 81.1 %; PCO2 VBG 59 mmhg; PO2 VBG 48 mmhg; pH VBG 7.31 (7.32-7.43)
[2020-08-24 08:45] LABS: Hematocrit 27.3 % (42-52); Hemoglobin 8.9 g/dl (14.0-18.0); Mean Corpuscular HGB Conc 32.6 g/dl (31.0-36.0); Mean Corpuscular Hemoglobin 30.5 pg (27.0-33.0); Mean Corpuscular Volume 93.5 fL (80-98); Mean Platelet Volume 11.3 fL (9.4-12.4); NRBC Pct Auto 0.4 /100WBC (0.0-0.2); Platelet Count 102 X10*3/uL (160-400); Red Blood Count 2.92 X10*6/uL (4.60-5.80); White Blood Count 4.5 X10*3/uL (4.8-10.8)
[2020-08-24 09:00] LABS: Prothrombin Time 11.5 SEC (10.8-13.0)
[2020-08-24 09:03] LABS: Partial Thromboplastin Time 46.9 SEC (24.1-38.0)
[2020-08-24] MEDS: Enoxaparin Sodium 120 MG/0.8 ML SYRINGE 115 MG SUBCUT (09:56)
[2020-08-24] MEDS: 0.9 % Sodium Chloride Flush 3 ML SYRINGE IVFLUSH ×3 (09:56→21:23)
[2020-08-24] MEDS: Furosemide 20 MG/2 ML VIAL IVPUSH (10:55)
[2020-08-24] MEDS: Levothyroxine Sodium 100 MCG VIAL 25 MCG IVPUSH (10:55)
[2020-08-24 13:27] LABS: Prothrombin Time 11.8 SEC (10.8-13.0)
[2020-08-24 13:30] LABS: Partial Thromboplastin Time 57.8 SEC (24.1-38.0)
--- NOTE | 2020-08-24 13:55 | PM.CCN ---
Critical Care Event Note Summary Code activated: Yes Narrative: This case had a high probability of a clinically significant, sudden, or life threatening deterioration of this patient's condition which required my full and direct attention, intervention and personal management. reviewed patient exam and history and physical with family patient and with the mid-level the appearance of the left leg lesion does not look cellulitic but clearly a potential source of bacterial in grass and therefore bacteremia but almost has the appearance of a neutrophil based lesion such as pyoderma and the other abnormality is the elevated PTT raising questions about lupus anticoagulant so will check a sed rate and do a hypercoagulability screen and in a because of the bradycardia and hypothermia and lethargy etc. And the peripheral edema which is really pitting but nonetheless we will repeat the workup with the entire thyroid profile and if this is indeed autoimmune will start Decadron in addition to antibiotics Tegretol was stopped because of pancytopenia and questionable relationship and apparently not on this because of seizure issues but just behavior introducing Decadron to see if this helps the heel the lesion on the skin as we keep it dressed and might look for a biopsy this time bedside examination with echo shows at least a 50-55% ejection fraction without segmental wall motion abnormality but all chamber sizes basically normal and no primary valve or pericardial disease elevated pCO2 could indicate and untreated degree of obesity hypoventilation / sleep apnea and then will watch is pattern tonight with his nocturnal oximetry and he might require positive pressure support with CPAP Critical Care Time (minutes): 35
[2020-08-24 13:59] LABS: Free T4 (Free Thyroxine) 0.97 ng/dL (0.71-1.85); Thyroid Stimulating Hormone 2.98 mIU/mL (0.32-4.0)
[2020-08-24 14:13] LABS: Erythrocyte Sedimentation Rate 20 MM/HR (0-15)
[2020-08-24 14:15] LABS: Rheumatoid Factor < 15.0 IU/mL (<15.0)
[2020-08-24] MEDS: dexAMETHasone sod phosphate 4 MG/ML VIAL IVPUSH ×2 (14:37→21:15)
[2020-08-24 22:01] LABS: Pt Ventilation O2% ROOM AIR
[2020-08-24 22:12] LABS: ABG PCO2 39 mmhg (32-45); Base Excess ABG 0.2; Blood Gas Serial # 5414; HCO3 ABG 25 mmol/l (22-26); Oxygen Saturation ABG 97.2 %; PO2 ABG 91 mmhg (83-108); pH ABG 7.42 (7.35-7.45)
[2020-08-24 23:09] LABS: Procalcitonin < 0.05 ng/mL
[2020-08-25] VITALS (18 sets, daily range): BP systolic 118–159; BP diastolic 45–68; PULSE 58–79; RESP 12–25; TEMP 36.1–37; O2SAT 94–99; BMI 34.4
[2020-08-25 03:50] LABS: Hemoglobin 9.4 g/dl (14.0-18.0); Mean Platelet Volume 11.4 fL (9.4-12.4); PLT CLUMP 1
[2020-08-25 03:52] LABS: Hematocrit 28.4 % (42-52); Mean Corpuscular HGB Conc 33.1 g/dl (31.0-36.0); Mean Corpuscular Hemoglobin 30.7 pg (27.0-33.0); Mean Corpuscular Volume 92.8 fL (80-98); NRBC Pct Auto 0.9 /100WBC (0.0-0.2); Platelet Count 100 X10*3/uL (160-400); Red Blood Count 3.06 X10*6/uL (4.60-5.80); Red Cell Distribution Width 16.2 % (11.0-16.0); White Blood Count 4.7 X10*3/uL (4.8-10.8)
[2020-08-25 04:31] LABS: B Type Natriuretic Peptide 354 pg/mL (<100)
[2020-08-25] MEDS: Levothyroxine Sodium 100 MCG VIAL 25 MCG IVPUSH (05:50)
[2020-08-25 06:16] LABS: Prothrombin Time 11.3 SEC (10.8-13.0)
[2020-08-25 06:46] LABS: Calcium 10.3 mg/dL (8.4-10.2); Phosphorus 2.9 mg/dL (2.7-4.5)
[2020-08-25 06:51] LABS: Albumin Level 3.6 g/dL (3.5-5.0); Anion Gap 11 (12-20); Blood Urea Nitrogen 17 mg/dL (9-16); Calcium 10.3 mg/dL (8.4-10.2); Carbon Dioxide 27 mmol/L (22-29); Chloride 107 mmol/L (96-108); Creatinine Clr Calc Pharmacy 127.2; Estimated Glomerular Filt Rate > 60; Glucose Random 140 mg/dL (60-115); Magnesium 1.5 mg/dL (1.6-2.6); Potassium 5.2 mmol/l (3.3-5.1); Sodium 140 mmol/L (135-145)
[2020-08-25 07:51] LABS: Triiodothyronine T3 Free 2.5 pg/mL (2.3-4.2)
[2020-08-25] MEDS: 0.9 % Sodium Chloride Flush 3 ML SYRINGE IVFLUSH ×2 (08:26→17:11)
[2020-08-25] MEDS: Furosemide 20 MG/2 ML VIAL IVPUSH (08:56)
[2020-08-25] MEDS: dexAMETHasone sod phosphate 4 MG/ML VIAL IVPUSH (08:57)
[2020-08-25] MEDS: Magnesium Sulfate/H2O 2 GM/50 ML PIGGYBACK IV (09:01)
--- NOTE | 2020-08-25 12:59 | MHC.CM.PN ---
Attempted to meet with patient in regards to d/c planning. Patient has a history of MR and is from a [facility]. Sister is HCP but no telephone number is available for her. Left voicemail for [employer] supervisor at [phone],, requesting updated contact information for sister. Case management assessment completed using medical record. Anticipate patient will return to [facility] when medically stable. Continue to monitor for d/c needs.
--- NOTE | 2020-08-25 13:06 | MHC.CM.PN ---
Spoke with patient's sister,HCP, Ruby via telephone at [phone]. IMM explained and left bedside. [facility] will transport patient home when medically stable. Continue to monitor for d/c needs.
--- NOTE | 2020-08-25 15:03 | PC.NURSE ---
S/E [id number]: AFEBRILE, VSS, DENIES PAIN. DRESSING CHANGED TO LEFT LOWER LEG PERFORMED. FAMILY AND FACILITY UPDATED BY THIS RN.
--- NOTE | 2020-08-25 15:36 | P.PNCC_ITS ---
Subjective Subjective Date of Service: 08/25/20 Interval History: he is a 64-year-old male mentally challenged in living in a [facility] brought in with altered mental status and according to family just lethargic for and a number of days less than less responsive although he is responsive here but literally his mouth is agape in drooling when he presented and currently he is completely restored and that is confirmed by the family member who sore him today he was hypothermic and hypotensive and required on inotropics support briefly and he was markedly bradycardic at about 40 in his sinus mechanism that is chronic and it has had ups and Downs and I did a bedside echo the know that did demonstrate that his systolic function seem to be fairly well preserved certainly a ejection fraction at least 50% with no primary valve or pericardial disease nor any effusion baseline cortisol level was pending his TSH was normal at at 3 and half and that was confirmed but his T4 is in the low range of normal T3 is not back and he might in my mind be relatively hypothyroid to account for some of what were seen electrolytes revealed hyponatremia and hyperkalemia which is why I raised qu estions about his adrenal sufficiency and evgeny a cortisol level. 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 and therefore I started him on Decadron 4 it treating it as a vasculitic issue and scanned his legs which basically showed no evidence of deep vein thrombosis not old not new and he had good venous flow so at his edema peripherally could either be related to SI ADH related to Tegretol and that may all and the Tegretol may also be responsible for his presenting pancytopenia which has not been accounted for in the past so I stopped his Tegretol and that may be part of why he is improving and the pancytopenia seems to be improving slightly already and his sodium has since corrected between stopping the Tegretol and diuresing him to 140 but the potassium is not yet corrected and that may be because we did not restore a mineral corticoid so I changed his Decadron to prednisone and I would suggest sending him home on the prednisone to see if it aids in the healing of that lesion I was considering a surgical consult just to do a biopsy of the lesion to see if it is vasculitic and as opposed to a stasis ulcer. He received 1 dose of vancomycin to cover him for possible wound as a source of bacterial ingress Physical Exam Vital Signs: Vital Signs: Vital Signs Temp Pulse Resp BP Pulse Ox 08/25/20 15:00 97.9 F 79 25 H 141/59 H 97 08/25/20 14:00 97.7 F 63 15 134/64 96 08/25/20 13:00 97.5 F 65 21 H 144/67 H 96 08/25/20 12:00 97.5 F 59 16 147/67 H 96 08/25/20 11:00 97.3 F 58 17 141/68 H 96 08/25/20 10:00 97.3 F 65 18 135/59 L 96 08/25/20 09:00 97.5 F 60 21 H 128/50 L 96 08/25/20 08:00 97.7 F 63 12 125/58 L 98 08/25/20 07:00 97.9 F 62 19 124/49 L 94 08/25/20 05:52 60 18 96 08/25/20 05:00 62 16 124/59 L 96 08/25/20 04:00 98.6 F 67 18 119/54 L 97 08/25/20 03:00 68 95 08/25/20 02:00 61 16 118/54 L 95 08/25/20 01:00 75 20 126/60 96 08/25/20 00:00 97.9 F 77 16 124/58 L 95 08/24/20 23:00 68 22 H 122/55 L 96 08/24/20 22:00 65 20 96 08/24/20 21:00 62 22 H 115/54 L 96 08/24/20 20:00 97.9 F 75 18 126/52 L 96 08/24/20 19:00 63 18 124/54 L 95 08/24/20 17:49 55 125/55 L 08/24/20 17:47 97.7 F 56 16 125/55 L 95 08/24/20 17:00 97.7 F 10 L 12 116/68 95 08/24/20 15:58 97.5 F 65 20 120/51 L 94 Body Mass Index 34.4 Const: Other: he is awake very responsive very cooperative and he is or oriented neurological is nonfocal including cranial nerves he has significant bilateral peripheral edema with stasis dermatitis and has got that open necrotic looking lesion on his left lower extremity which is covered with an iodoform gauze and does not appear to be cellulitic and there is a wound culture and wound service pending chest percussed equally no clinical pleural effusion no adventitious sounds good bilateral carotid upstrokes no bruits no neck vein distension cardiac exam with normal S1 normal S2 no gallops or murmurs sinus rhythm between rates of 60 and 80 and blood pressure of 140/60 with a mean of 80 abdomen benign no tenderness no distention no organomegaly Objective Data Labs CBC & Chem 7: 08/25/20 03:39 08/25/20 05:42 Labs: Laboratory Results - last 24 hr 08/24/20 08/24/20 08/24/20 07:30 12:47 19:55 WBC RBC Hgb Hct MCV MCH MCHC RDW Plt Count MPV Absolute Nucleated RBC Nucleated RBC % (auto) PT INR ABG pH 7.42 ABG pCO2 39 ABG pO2 91 ABG HCO3 25 ABG O2 Saturation 97.2 ABG Base Excess 0.2 Oxygen Given ROOM AIR Sodium Potassium Chloride Carbon Dioxide Anion Gap BUN Creatinine Estim Creat Clear Calc Estimated GFR Random Glucose Calcium Phosphorus Magnesium B-Natriuretic Peptide Albumin Procalcitonin < 0.05 Free T3 2.5 08/25/20 08/25/20 08/25/20 03:39 03:39 05:42 WBC 4.7 L RBC 3.06 L Hgb 9.4 L Hct 28.4 L MCV 92.8 MCH 30.7 MCHC 33.1 RDW 16.2 H Plt Count 100 L MPV 11.4 Absolute Nucleated RBC 0.040 H Nucleated RBC % (auto) 0.9 H PT INR ABG pH ABG pCO2 ABG pO2 ABG HCO3 ABG O2 Saturation ABG Base Excess Oxygen Given Sodium Potassium Chloride Carbon Dioxide Anion Gap BUN Creatinine Estim Creat Clear Calc Estimated GFR Random Glucose Calcium 10.3 H Phosphorus 2.9 Magnesium B-Natriuretic Peptide 354 H Albumin Procalcitonin Free T3 08/25/20 08/25/20 05:42 05:42 WBC RBC Hgb Hct MCV MCH MCHC RDW Plt Count MPV Absolute Nucleated RBC Nucleated RBC % (auto) PT 11.3 INR 1.0 ABG pH ABG pCO2 ABG pO2 ABG HCO3 ABG O2 Saturation ABG Base Excess Oxygen Given Sodium 140 Potassium 5.2 H Chloride 107 Carbon Dioxide 27 Anion Gap 11 L BUN 17 H Creatinine 0.73 Estim Creat Clear Calc 127.2 Estimated GFR > 60 Random Glucose 140 H D Calcium 10.3 H Phosphorus Magnesium 1.5 L B-Natriuretic Peptide Albumin 3.6 Procalcitonin Free T3 Microbiology Microbiology Results: Microbiology 08/23/20 20:49 Urine Catheterized - Henley Catheter Urine Culture - Preliminary Gram positive cocci 08/23/20 19:55 Blood - Venous Blood Culture - Preliminary No growth after 24 hours. 08/23/20 19:41 Blood - Venous Blood Culture - Preliminary No growth after 24 hours. Progress Note: A&P Assessment and plan (1) Altered mental status: Status: Acute (2) Sepsis associated hypotension: Status: Acute (3) Cellulitis: Problem details: possible cellulitis on LLE, pt had a similar presentation with hypothermia to [facility] [place]/2019, end result was cellulitis, was on vanco for 3 days then PO doxy Status: Acute (4) Pancytopenia: Problem details: as per labs Status: Acute (5) Venous insufficiency of both lower extremities: Problem details: patient evaluated in December [address] Rios, now has left LE stage 3 ulcer Status: Acute (6) Hypothyroidism: Status: Chronic (7) Intellectual disability: Status: Acute (8) Tegretol toxicity: Status: Acute (9) SIADH (syndrome of inappropriate ADH production): Status: Acute (10) Adrenal hypofunction: Status: Acute Assessment and Plan: based on the above I have changed his Decadron to prednisone for the mineral corticoid effect and therefore we must watch his potassium he might need additional 20 mg Lasix doses IV to diurese and and decrease the volume burden in his lower extremities to help heal the ulcer increased his Synthroid to 62.5 mcg daily covering the leg wound as possible source with Augmentin 875 mg q.12 hourly Time Spent With Patient Time: Total time spent is greater than 50% in coordination of care (as documented) at patient's floor/unit and/or counseling patient: Total time spent with greater than 50% in coordination of care (as documented) at patient's floor/unit and/or counseling patient:: 35
--- NOTE | 2020-08-25 17:01 | PM.EVENT ---
Event Note Event Note: patient being transferred from ICU -admitted for hypothermia, hypotension: cvs: rrr, [id number] , no murmur res: clear to auscultation ,no rhonchii or wheezing abd: no rebound or guarding ,nt, bs present. ext -has wound on lower ext, no discharge neuro: nonfocal. assessment and plan coordinated in ICU note.
[2020-08-25] MEDS: Amoxicillin/Potassium Clav 875 MG TABLET PO (17:10)
[2020-08-25] MEDS: predniSONE 10 MG TABLET 30 MG PO (17:10)
[2020-08-26] MEDS: 0.9 % Sodium Chloride Flush 3 ML SYRINGE IVFLUSH ×3 (00:04→18:00)
[2020-08-26 04:10] VITALS: BP 137/59; PULSE 59; RESP 18; TEMP 36.1; O2SAT 98
[2020-08-26] MEDS: Amoxicillin/Potassium Clav 875 MG TABLET PO ×2 (05:49→20:00)
[2020-08-26] MEDS: Levothyroxine Sodium 25 MCG TABLET 12.5 MCG PO (05:50)
[2020-08-26] MEDS: Levothyroxine Sodium 50 MCG TABLET PO (05:50)
[2020-08-26 06:40] LABS: MANUAL DIFF FLAG NO
[2020-08-26 07:04] LABS: Eosinophils Absolute Auto 0.1 X10*3/uL (0.0-0.4); Eosinophils Percent Auto 1.4 % (0-4); Hematocrit 28.4 % (42-52); Hemoglobin 9.4 g/dl (14.0-18.0); Imm Gran Abs Auto 0.02 X10*3/uL (0.00-0.03); Imm Gran Pct Auto 0.4 % (0.0-0.4); Lymphocytes Absolute Auto 0.9 X10*3/uL (1.2-4.9); Lymphocytes Percent Auto 15.8 % (20-40); Mean Corpuscular HGB Conc 33.1 g/dl (31.0-36.0); Mean Corpuscular Hemoglobin 30.3 pg (27.0-33.0); Mean Corpuscular Volume 91.6 fL (80-98); Mean Platelet Volume 10.8 fL (9.4-12.4); Monocytes Absolute Auto 0.7 X10*3/uL (0.1-1.2); Monocytes Percent Auto 12.9 % (2-11); NRBC Pct Auto 0.9 /100WBC (0.0-0.2); Neutrophils Absolute Auto 3.9 X10*3/uL (2.0-8.3); Neutrophils Percent Auto 69.5 % (45-73); Platelet Count 112 X10*3/uL (160-400); Red Cell Distribution Width 16.3 % (11.0-16.0); White Blood Count 5.7 X10*3/uL (4.8-10.8)
[2020-08-26 07:28] LABS: Anion Gap 10 (12-20); Blood Urea Nitrogen 17 mg/dL (9-16); Calcium 9.9 mg/dL (8.4-10.2); Carbon Dioxide 28 mmol/L (22-29); Chloride 104 mmol/L (96-108); Creatinine Clr Calc Pharmacy 118.1; Estimated Glomerular Filt Rate > 60; Glucose Random 136 mg/dL (60-115); Potassium 4.7 mmol/l (3.3-5.1); Sodium 137 mmol/L (135-145)
[2020-08-26 07:55] VITALS: BP 117/56; PULSE 59; RESP 19; TEMP 36; O2SAT 98
[2020-08-26 08:00] VITALS: BMI 34.6
--- NOTE | 2020-08-26 09:01 | MHC.CM.PN ---
at this time there is no change in dc plan which is to return to nursing home no additional svcs. cm to cont. to follow.
[2020-08-26] MEDS: predniSONE 10 MG TABLET 30 MG PO (10:13)
[2020-08-26 11:37] VITALS: BP 129/62; PULSE 60; RESP 18; TEMP 36.1; O2SAT 98
[2020-08-26 13:08] LABS: Myeloperoxidase Antibody <1.0 AI; Proteinase 3 PR3 Antibodies <1.0 AI
--- NOTE | 2020-08-26 14:50 | P.PNIM_ITS ---
Subjective Subjective Date of Service: 08/26/20 Interval History: patient initially admitted for hypothermia, hypotension, bradycardia: Went to ICU required pressor support. Review of Systems Patient is more awake alert, denies any chest pain or shortness of breath or any abdominal pain or fever or chills. Physical Exam Vital Signs: Vital Signs: Vital Signs Temp Pulse Resp BP Pulse Ox 08/26/20 11:37 97.0 F 60 18 129/62 98 08/26/20 07:55 96.8 F 59 19 117/56 L 98 08/26/20 04:10 97 F 59 18 137/59 L 98 08/25/20 23:40 96.9 F 64 18 159/68 H 99 08/25/20 17:00 97.4 F 62 20 118/45 L 98 08/25/20 15:00 97.9 F 79 25 H 141/59 H 97 Body Mass Index 34.6 physical exam: Cvs: rrr, [id number] , no murmur res: clear to auscultation ,no rhonchii or wheezing abd: no rebound or guarding ,nt, bs present. ext : left leg wound? large area neuro: Seems more awake , could able to answer simple question,nonfocal. Objective Data Current Medications Generic Name Dose Route Start Last Admin Trade Name Freq PRN Reason Stop Dose Admin Amoxicillin/Clavulanate Potassium 875 mg 08/25/20 18:00 08/26/20 05:49 Amoxicillin/Potassium Clav 875 Mg Tablet PO 875 mg Q12H EDUARDO Administration Levothyroxine Sodium 50 mcg 08/26/20 06:00 08/26/20 05:50 Levothyroxine Sodium 50 Mcg Tablet PO 50 mcg DAILY@0600 EDUARDO Administration Levothyroxine Sodium 12.5 mcg 08/26/20 06:00 08/26/20 05:50 Levothyroxine Sodium 25 Mcg Tablet PO 12.5 mcg DAILY@0600 EDUARDO Administration Prednisone 30 mg 08/25/20 15:30 08/26/20 10:13 Prednisone 10 Mg Tablet PO 30 mg DAILY EDUARDO Administration Sodium Chloride 3 ml 08/24/20 08:00 08/26/20 10:14 0.9 % Sodium Chloride Flush 3 Ml Syringe IVFLUSH 3 ml QSHIFT EDUARDO Administration Labs CBC & Chem 7: 08/26/20 06:27 08/26/20 06:27 Microbiology Microbiology Results: Microbiology 08/23/20 20:49 Urine Catheterized - Henley Catheter Urine Culture - Preliminary Gram positive cocci 08/23/20 19:55 Blood - Venous Blood Culture - Preliminary No growth after 48 hours. 08/23/20 19:41 Blood - Venous Blood Culture - Preliminary No growth after 48 hours. Assessment and Plan (1) Tegretol toxicity: Status: Acute (2) Altered mental status: Status: Acute (3) Sepsis associated hypotension: Status: Acute (4) Pancytopenia: Problem details: as per labs Status: Acute (5) Hypothyroidism: Status: Chronic (6) Adrenal hypofunction: Status: Acute Assessment and Plan: (7) Cellulitis: Status: Acute (8) Venous insufficiency of both lower extremities: Status: Acute (9) Intellectual disability: Status: Acute (10) SIADH (syndrome of inappropriate ADH production): Status: Acute Assessment and Plan: 1. initially admitted altered mental status/ hypothermia/ hypotension/ bradycardia: initially admitted to ICU, required pressor support: Above was thought to be multifactorial question Tegretol/ relative adrenal insufficiency, relative low thyroid level. also patient has received steroids, antibiotics? question of cellulitis initially was on Decadron which was changed to prednisone- because of the question of relative adrenal insufficiency also his Synthroid dose was increased to 62.5 mg daily continue to monitor renal function and electrolytes. seems with above management toxic metabolic encephalopathy seems improved significantly. 2. Pancytopenia : thought to be related Tegretol, seems improving, will continue to CBC . 3.possible cellulitis on LLE, [place] a [place] with [place] [facility] [place] [facility] [place], end result was cellulitis, was on vanco for 3 days then PO doxy evaluated in December [address] Rios, now has left LE stage 3 ulcer ? leg ulcer on the left side there is a question of cellulitis versus pyoderma gangrenosum: rf neg, flor pending protease and myeloperoxidase not detected blood cultures so far negative, urine cultures growing Gram-positive cocci, colonization question due toFoley. respiratory panel for adenovirus, chlamydia pneumoniae, coronavirus PCR, influenza a and B, parainfluenza 1,2,3,4 seems negative in addition entero/rhinovirus PCR not detected as well as RSV RNA negative initially patient was on vancomycin,currently patient is on Augmentin as per ICU. 4. there is also question of a relative adrenal insufficiency / mild hypothyroidism: Synthroid at is adjusted as above also patient in prednisone. 5. dvt hx : of warfarin out as per patient's outpatient provider as per early breastfeeding care specialist , venous duplex in the hospital is also negative. 6.: electrolytic abnormalities : question multifactorial hyperkalemia and hyponatremia improving question of relative adrenal insufficiency, cortisol level pending Nephro evaluation added
[2020-08-26 15:45] VITALS: BP 149/66; PULSE 61; TEMP 36.7; O2SAT 98
[2020-08-26 15:49] VITALS: BMI 34.6
[2020-08-26 18:27] LABS: Anti Nuclear Antibody Screen NEGATIVE (NEGATIVE)
[2020-08-26 19:18] VITALS: BP 132/60; PULSE 69; RESP 19; TEMP 36.8; O2SAT 96
[2020-08-26 20:46] LABS: Glucose, Whole Blood 179 mg/dL (60-115)
[2020-08-27] VITALS: BP 136/70; PULSE 58; RESP 16; TEMP 36.5; O2SAT 98
[2020-08-27] MEDS: 0.9 % Sodium Chloride Flush 3 ML SYRINGE IVFLUSH ×2 (00:28→17:10)
[2020-08-27 04:00] VITALS: BP 120/54; PULSE 55; RESP 16; TEMP 36.3; O2SAT 96
[2020-08-27 08:00] VITALS: BP 99/50; PULSE 63; RESP 18; TEMP 36.4; O2SAT 97
[2020-08-27] MEDS: predniSONE 10 MG TABLET 30 MG PO (08:47)
--- NOTE | 2020-08-27 10:54 | PM.PNNEP ---
Subjective Subjective Interval history: Events noted No changes since yesterday Physical Exam Vital Signs: Vital Signs: Vital Signs Temp Pulse Resp BP Pulse Ox 08/27/20 08:00 97.5 F 63 18 99/50 L 97 08/27/20 04:00 97.4 F 55 16 120/54 L 96 08/27/20 00:00 97.7 F 58 16 136/70 98 08/26/20 19:18 98.3 F 69 19 132/60 96 08/26/20 15:45 98.0 F 61 149/66 H 98 08/26/20 11:37 97.0 F 60 18 129/62 98 Body Mass Index 34.6 Const: General: awake Neck: Neck: Yes supple Resp: Auscultation: clear to auscultation bilaterally Cardio: Palpation: no palpable S3 Heart sounds: no rubs GI: Inspection: Yes normal to inspection Auscultation: normal bowel sounds Neuro: Motor exam (neuro): no asterixis and Asterixis during motor activity present Assessment & Plan Assessment and plan (1) Hyperkalemia: Status: Acute Assessment and Plan: Hyperkalemia and Hyponatremia stand corrected Admitted with hypothermia- corrected at present Possible Adrenal insufficiency By definition, does not have SIADH Watch thyroid function Taper Prednisone Time Spent With Patient Time: t:
--- NOTE | 2020-08-27 10:56 | P.CONIM_ITS ---
History of Present Illness Data of Consult Primary Care Provider: Unknown Physician Review of Systems Constitutional: Constitutional: Reports no additional constitutional complaints and Reports daytime sleepiness [facility] Medical History (Updated 08/27/20 @ 11:03 by PHYLLIS Valencia) Adrenal hypofunction Anemia Diabetes type 2, controlled DVT (deep venous thrombosis) Hypertension Hypothyroidism Morbid obesity SIADH (syndrome of inappropriate ADH production) Tegretol toxicity Venous insufficiency of both lower extremities Functional capacity: wheelchair bound Family history: reviewed and not pertinent Social History (Updated 08/24/20 @ 02:24 by PHYLLIS Baxter) Housing Other:: [facility] Alcohol intake: never Smoking Status: Never smoker Use of substances other than those prescribed or required for medical reasons: No Currently Displaying Signs/Symptoms of Drug Intoxication Withdrawal: No Advance Directives: No Advance Directives Information Provided: Yes Advance Directives Date on File: 08/16/20 Do you have thoughts of harming others: None Do you have a plan to hurt others: No Plan service: No Current occupational status: disabled Meds Allergies Allergy/AdvReac Type Severity Reaction Status Date / Time No Known Allergies Allergy Verified 08/24/20 07:57 [No Known Allergies*] Home Medications Medication Instructions Recorded Confirmed Type aluminum 1 ea TOPICAL BID 08/23/20 08/23/20 History carbamazepine 400 mg PO BID 08/23/20 08/24/20 History furosemide 40 mg MOWEFR@0800 08/23/20 08/24/20 History levothyroxine 50 mcg PO DAILY 08/23/20 08/23/20 History multivitamin [Daily Vitamin] 1 tab PO DAILY 08/23/20 08/23/20 History nystatin 1 applic TOPICAL BID 08/23/20 08/23/20 History vitamin B complex 1 cap PO QAM 08/23/20 08/23/20 History acetaminophen 650 mg PO Q4H PRN 08/24/20 08/24/20 History aspirin 81 mg PO DAILY 08/24/20 08/24/20 History clotrimazole [Mycelex OTC] 1 applic TOPICAL BID PRN 08/24/20 08/24/20 History terbinafine HCl [Lamisil] 1 applic TOPICAL BEDTIME 08/24/20 08/24/20 History zinc oxide 1 applic TOPICAL BID PRN 08/24/20 08/24/20 History Physical Exam Vital Signs and Narrative: Vital Signs: Last Vital Signs Temp 97.5 F 08/27/20 08:00 Pulse 63 08/27/20 08:00 Resp 18 08/27/20 08:00 BP 99/50 L 08/27/20 08:00 Pulse Ox 97 08/27/20 08:00 Body Mass Index 34.6 physical exam: Left leg wound examined. 6 x 6 x 0.1 cm. partial thickness with islands of new epithelialization. No evidence of infection. Improved from my last inspection at the wound clinic on 08/16/20 . Const: Other: he is awake very responsive very cooperative he has significant bilateral peripheral edema General: no acute distress, alert and awake Nutritional Appearance: obese HENMT: Head: Yes normal to inspection Eyes: General: appearance normal, both eyes and all related structures Neck: Yes normal visual inspection and Yes supple Chest: Chest palpation & inspection: normal inspection of the chest Resp: Effort & Inspection: normal respiratory effort and able to speak in complete sentences Auscultation: clear to auscultation bilaterally Cardio: Rate: regular rate Rhythm: regular rhythm Heart sounds: S1 normal heart sound present and S2 normal heart sound present GI: Inspection: Yes normal to inspection Palpation (GI): Soft to palpation Auscultation: normal bowel sounds Extrem: General: Yes no calf tenderness, Yes edema (2+ pitting edema bilateral LE) and Yes venous stasis dermatitis (bilateral LE) Results Labs Labs: Laboratory Tests 08/23/20 08/23/20 08/23/20 19:41 19:41 19:41 WBC 3.8 L RBC 3.04 L Hgb 9.2 L Hct 28.0 L MCV 92.1 MCH 30.3 MCHC 32.9 RDW 15.7 Plt Count 85 L MPV 10.8 Immature Gran % (Auto) 0.5 H Neut % (Auto) 78.1 H Lymph % (Auto) 14.1 L Emmons % (Auto) 6.0 Eos % (Auto) 1.3 Baso % (Auto) 0.0 Lymph # (Auto) 0.5 L Emmons # (Auto) 0.2 Eos # (Auto) 0.1 Baso # (Auto) 0.0 Abs Immat Gran (auto) 0.02 Absolute Neuts (auto) 3.0 Absolute Nucleated RBC 0.000 Nucleated RBC % (auto) 0.0 Smear Tech's Comments VERIFIED ESR PT 11.7 INR 1.0 APTT 51.1 H ABG pH ABG pCO2 ABG pO2 ABG HCO3 ABG O2 Saturation ABG Base Excess VBG pH VBG pCO2 VBG Oxygen Liters/Min VBG pO2 VBG HCO3 VBG O2 Saturation VBG Base Excess Oxygen Given Sodium Potassium Chloride Carbon Dioxide Anion Gap BUN Creatinine Estim Creat Clear Calc Estimated GFR POC Glucose Random Glucose Lactic Acid Calcium Phosphorus Magnesium Total Bilirubin 0.2 Direct Bilirubin 0.2 AST 31 ALT 32 Alkaline Phosphatase 91 B-Natriuretic Peptide Total Protein 6.0 L Albumin 3.6 Procalcitonin TSH Free T4 Free T3 Cortisol Urine Color Urine Appearance Urine pH Ur Specific [place] Urine Protein Urine Glucose (UA) Urine Ketones Urine Blood Urine Nitrite Ur Leukocyte Esterase Rheumatoid Factor FLOR Screen FLOR Titer FLOR Pattern Proteinase 3 (PR3) Ab Myeloperoxidase Ab Respiratory Panel Ruby Adenovirus (Rapid PCR) B.pert (TEM-PCR) B.parapertussis DNA PCR C. pneumoniae DNA (PCR) Coronavirus (PCR) Coronavirus OC43 (PCR) Coronavirus HKU1 (PCR) Coronavirus 229E (PCR) Coronavirus NL63 (PCR) Human Metapneumovir PCR Influenza A (RT-PCR) Influenza Type A (PCR) Influenza B (RT-PCR) Influenza Type B (PCR) Influenza A & B Note M. pneumoniae (PCR) Parainfluenza 1 (PCR) Parainfluenza 2 (PCR) Parainfluenza 3 (PCR) Parainfluenza 4 (PCR) RSV (PCR) RSV RNA Qual (PCR) Entero/Rhino (PCR) SARS-CoV-2 RNA (RT-PCR) 08/23/20 08/23/20 08/23/20 19:41 19:41 19:41 WBC RBC Hgb Hct MCV MCH MCHC RDW Plt Count MPV Immature Gran % (Auto) Neut % (Auto) Lymph % (Auto) Emmons % (Auto) Eos % (Auto) Baso % (Auto) Lymph # (Auto) Emmons # (Auto) Eos # (Auto) Baso # (Auto) Abs Immat Gran (auto) Absolute Neuts (auto) Absolute Nucleated RBC Nucleated RBC % (auto) Smear Tech's Comments ESR PT INR APTT ABG pH ABG pCO2 ABG pO2 ABG HCO3 ABG O2 Saturation ABG Base Excess VBG pH VBG pCO2 VBG Oxygen Liters/Min VBG pO2 VBG HCO3 VBG O2 Saturation VBG Base Excess Oxygen Given Sodium 136 Potassium 5.4 H Chloride 103 Carbon Dioxide 29 Anion Gap 9 L BUN 17 H Creatinine 0.66 Estim Creat Clear Calc 133.5 Estimated GFR > 60 POC Glucose Random Glucose 87 Lactic Acid 0.5 Calcium 10.1 Phosphorus Magnesium Total Bilirubin Direct Bilirubin AST ALT Alkaline Phosphatase B-Natriuretic Peptide 218 H Total Protein Albumin Procalcitonin TSH Free T4 Free T3 Cortisol Urine Color Urine Appearance Urine pH Ur Specific [place] Urine Protein Urine Glucose (UA) Urine Ketones Urine Blood Urine Nitrite Ur Leukocyte Esterase Rheumatoid Factor FLOR Screen FLOR Titer FLOR Pattern Proteinase 3 (PR3) Ab Myeloperoxidase Ab Respiratory Panel Ruby Adenovirus (Rapid PCR) B.pert (TEM-PCR) B.parapertussis DNA PCR C. pneumoniae DNA (PCR) Coronavirus (PCR) Coronavirus OC43 (PCR) Coronavirus HKU1 (PCR) Coronavirus 229E (PCR) Coronavirus NL63 (PCR) Human Metapneumovir PCR Influenza A (RT-PCR) Influenza Type A (PCR) Influenza B (RT-PCR) Influenza Type B (PCR) Influenza A & B Note M. pneumoniae (PCR) Parainfluenza 1 (PCR) Parainfluenza 2 (PCR) Parainfluenza 3 (PCR) Parainfluenza 4 (PCR) RSV (PCR) RSV RNA Qual (PCR) Entero/Rhino (PCR) SARS-CoV-2 RNA (RT-PCR) 08/23/20 08/23/20 08/24/20 19:41 20:49 01:03 WBC RBC Hgb Hct MCV MCH MCHC RDW Plt Count MPV Immature Gran % (Auto) Neut % (Auto) Lymph % (Auto) Emmons % (Auto) Eos % (Auto) Baso % (Auto) Lymph # (Auto) Emmons # (Auto) Eos # (Auto) Baso # (Auto) Abs Immat Gran (auto) Absolute Neuts (auto) Absolute Nucleated RBC Nucleated RBC % (auto) Smear Tech's Comments ESR PT INR APTT ABG pH ABG pCO2 ABG pO2 ABG HCO3 ABG O2 Saturation ABG Base Excess VBG pH VBG pCO2 VBG Oxygen Liters/Min VBG pO2 VBG HCO3 VBG O2 Saturation VBG Base Excess Oxygen Given Sodium Potassium Chloride Carbon Dioxide Anion Gap BUN Creatinine Estim Creat Clear Calc Estimated GFR POC Glucose Random Glucose Lactic Acid Calcium Phosphorus Magnesium Total Bilirubin Direct Bilirubin AST ALT Alkaline Phosphatase B-Natriuretic Peptide Total Protein Albumin Procalcitonin TSH 3.24 Free T4 Free T3 Cortisol Urine Color YELLOW Urine Appearance CLEAR Urine pH 5.5 Ur Specific [place] 1.020 Urine Protein NEG Urine Glucose (UA) NEG Urine Ketones NEG Urine Blood NEG Urine Nitrite NEG Ur Leukocyte Esterase NEG Rheumatoid Factor FLOR Screen FLOR Titer FLOR Pattern Proteinase 3 (PR3) Ab Myeloperoxidase Ab Respiratory Panel Ruby Adenovirus (Rapid PCR) B.pert (TEM-PCR) B.parapertussis DNA PCR C. pneumoniae DNA (PCR) Coronavirus (PCR) NEGATIVE Coronavirus OC43 (PCR) Coronavirus HKU1 (PCR) Coronavirus 229E (PCR) Coronavirus NL63 (PCR) Human Metapneumovir PCR Influenza A (RT-PCR) Influenza Type A (PCR) Influenza B (RT-PCR) Influenza Type B (PCR) Influenza A & B Note M. pneumoniae (PCR) Parainfluenza 1 (PCR) Parainfluenza 2 (PCR) Parainfluenza 3 (PCR) Parainfluenza 4 (PCR) RSV (PCR) RSV RNA Qual (PCR) Entero/Rhino (PCR) SARS-CoV-2 RNA (RT-PCR) 08/24/20 08/24/20 08/24/20 03:33 03:33 07:30 WBC RBC Hgb Hct MCV MCH MCHC RDW Plt Count MPV Immature Gran % (Auto) Neut % (Auto) Lymph % (Auto) Emmons % (Auto) Eos % (Auto) Baso % (Auto) Lymph # (Auto) Emmons # (Auto) Eos # (Auto) Baso # (Auto) Abs Immat Gran (auto) Absolute Neuts (auto) Absolute Nucleated RBC Nucleated RBC % (auto) Smear Tech's Comments ESR 19 H PT INR APTT ABG pH ABG pCO2 ABG pO2 ABG HCO3 ABG O2 Saturation ABG Base Excess VBG pH VBG pCO2 VBG Oxygen Liters/Min VBG pO2 VBG HCO3 VBG O2 Saturation VBG Base Excess Oxygen Given Sodium Potassium Chloride Carbon Dioxide Anion Gap BUN Creatinine Estim Creat Clear Calc Estimated GFR POC Glucose Random Glucose Lactic Acid Calcium Phosphorus Magnesium Total Bilirubin Direct Bilirubin AST ALT Alkaline Phosphatase B-Natriuretic Peptide Total Protein Albumin Procalcitonin TSH Free T4 Free T3 Cortisol Urine Color Urine Appearance Urine pH Ur Specific [place] Urine Protein Urine Glucose (UA) Urine Ketones Urine Blood Urine Nitrite Ur Leukocyte Esterase Rheumatoid Factor FLOR Screen FLOR Titer FLOR Pattern Proteinase 3 (PR3) Ab Myeloperoxidase Ab Respiratory Panel Ruby See Note Adenovirus (Rapid PCR) Not Detected B.pert (TEM-PCR) Not Detected B.parapertussis DNA PCR Not Detected C. pneumoniae DNA (PCR) Not Detected Coronavirus (PCR) Coronavirus OC43 (PCR) Not Detected Coronavirus HKU1 (PCR) Not Detected Coronavirus 229E (PCR) Not Detected Coronavirus NL63 (PCR) Not Detected Human Metapneumovir PCR Not Detected Influenza A (RT-PCR) Not Detected Influenza Type A (PCR) NEGATIVE Influenza B (RT-PCR) Not Detected Influenza Type B (PCR) NEGATIVE Influenza A & B Note See Note M. pneumoniae (PCR) Not Detected Parainfluenza 1 (PCR) Not Detected Parainfluenza 2 (PCR) Not Detected Parainfluenza 3 (PCR) Not Detected Parainfluenza 4 (PCR) Not Detected RSV (PCR) Not Detected RSV RNA Qual (PCR) NEGATIVE Entero/Rhino (PCR) Not Detected SARS-CoV-2 RNA (RT-PCR) Not Detected 08/24/20 08/24/20 08/24/20 07:30 07:30 07:30 WBC RBC Hgb Hct MCV MCH MCHC RDW Plt Count MPV Immature Gran % (Auto) Neut % (Auto) Lymph % (Auto) Emmons % (Auto) Eos % (Auto) Baso % (Auto) Lymph # (Auto) Emmons # (Auto) Eos # (Auto) Baso # (Auto) Abs Immat Gran (auto) Absolute Neuts (auto) Absolute Nucleated RBC Nucleated RBC % (auto) Smear Tech's Comments ESR PT INR APTT ABG pH ABG pCO2 ABG pO2 ABG HCO3 ABG O2 Saturation ABG Base Excess VBG pH 7.31 L VBG pCO2 59 VBG Oxygen Liters/Min TNP VBG pO2 48 VBG HCO3 29 VBG O2 Saturation 81.1 VBG Base Excess 1.8 Oxygen Given Sodium Potassium Chloride Carbon Dioxide Anion Gap BUN Creatinine Estim Creat Clear Calc Estimated GFR POC Glucose Random Glucose Lactic Acid Calcium Phosphorus Magnesium Total Bilirubin Direct Bilirubin AST ALT Alkaline Phosphatase B-Natriuretic Peptide 240 H Total Protein Albumin Procalcitonin < 0.05 TSH Free T4 Free T3 Cortisol Urine Color Urine Appearance Urine pH Ur Specific [place] Urine Protein Urine Glucose (UA) Urine Ketones Urine Blood Urine Nitrite Ur Leukocyte Esterase Rheumatoid Factor FLOR Screen FLOR Titer FLOR Pattern Proteinase 3 (PR3) Ab Myeloperoxidase Ab Respiratory Panel Ruby Adenovirus (Rapid PCR) B.pert (TEM-PCR) B.parapertussis DNA PCR C. pneumoniae DNA (PCR) Coronavirus (PCR) Coronavirus OC43 (PCR) Coronavirus HKU1 (PCR) Coronavirus 229E (PCR) Coronavirus NL63 (PCR) Human Metapneumovir PCR Influenza A (RT-PCR) Influenza Type A (PCR) Influenza B (RT-PCR) Influenza Type B (PCR) Influenza A & B Note M. pneumoniae (PCR) Parainfluenza 1 (PCR) Parainfluenza 2 (PCR) Parainfluenza 3 (PCR) Parainfluenza 4 (PCR) RSV (PCR) RSV RNA Qual (PCR) Entero/Rhino (PCR) SARS-CoV-2 RNA (RT-PCR) 08/24/20 08/24/20 08/24/20 08:21 08:21 08:21 WBC Cancelled 4.5 L RBC Cancelled 2.92 L Hgb Cancelled 8.9 L Hct Cancelled 27.3 L MCV Cancelled 93.5 MCH Cancelled 30.5 MCHC Cancelled 32.6 RDW Cancelled 15.9 Plt Count Cancelled 102 L MPV Cancelled 11.3 Immature Gran % (Auto) Cancelled Neut % (Auto) Cancelled Lymph % (Auto) Cancelled Emmons % (Auto) Cancelled Eos % (Auto) Cancelled Baso % (Auto) Cancelled Lymph # (Auto) Cancelled Emmons # (Auto) Cancelled Eos # (Auto) Cancelled Baso # (Auto) Cancelled Abs Immat Gran (auto) Cancelled Absolute Neuts (auto) Cancelled Absolute Nucleated RBC Cancelled 0.020 H Nucleated RBC % (auto) Cancelled 0.4 H Smear Tech's Comments ESR PT 11.5 INR 1.0 APTT 46.9 H ABG pH ABG pCO2 ABG pO2 ABG HCO3 ABG O2 Saturation ABG Base Excess VBG pH VBG pCO2 VBG Oxygen Liters/Min VBG pO2 VBG HCO3 VBG O2 Saturation VBG Base Excess Oxygen Given Sodium Potassium Chloride Carbon Dioxide Anion Gap BUN Creatinine Estim Creat Clear Calc Estimated GFR POC Glucose Random Glucose Lactic Acid Calcium Phosphorus Magnesium Total Bilirubin Direct Bilirubin AST ALT Alkaline Phosphatase B-Natriuretic Peptide Total Protein Albumin Procalcitonin TSH Free T4 Free T3 Cortisol Urine Color Urine Appearance Urine pH Ur Specific [place] Urine Protein Urine Glucose (UA) Urine Ketones Urine Blood Urine Nitrite Ur Leukocyte Esterase Rheumatoid Factor FLOR Screen FLOR Titer FLOR Pattern Proteinase 3 (PR3) Ab Myeloperoxidase Ab Respiratory Panel Ruby Adenovirus (Rapid PCR) B.pert (TEM-PCR) B.parapertussis DNA PCR C. pneumoniae DNA (PCR) Coronavirus (PCR) Coronavirus OC43 (PCR) Coronavirus HKU1 (PCR) Coronavirus 229E (PCR) Coronavirus NL63 (PCR) Human Metapneumovir PCR Influenza A (RT-PCR) Influenza Type A (PCR) Influenza B (RT-PCR) Influenza Type B (PCR) Influenza A & B Note M. pneumoniae (PCR) Parainfluenza 1 (PCR) Parainfluenza 2 (PCR) Parainfluenza 3 (PCR) Parainfluenza 4 (PCR) RSV (PCR) RSV RNA Qual (PCR) Entero/Rhino (PCR) SARS-CoV-2 RNA (RT-PCR) 08/24/20 08/24/20 08/24/20 12:47 12:47 12:47 WBC RBC Hgb Hct MCV MCH MCHC RDW Plt Count MPV Immature Gran % (Auto) Neut % (Auto) Lymph % (Auto) Emmons % (Auto) Eos % (Auto) Baso % (Auto) Lymph # (Auto) Emmons # (Auto) Eos # (Auto) Baso # (Auto) Abs Immat Gran (auto) Absolute Neuts (auto) Absolute Nucleated RBC Nucleated RBC % (auto) Smear Tech's Comments ESR 20 H PT INR APTT ABG pH ABG pCO2 ABG pO2 ABG HCO3 ABG O2 Saturation ABG Base Excess VBG pH VBG pCO2 VBG Oxygen Liters/Min VBG pO2 VBG HCO3 VBG O2 Saturation VBG Base Excess Oxygen Given Sodium Potassium Chloride Carbon Dioxide Anion Gap BUN Creatinine Estim Creat Clear Calc Estimated GFR POC Glucose Random Glucose Lactic Acid Calcium Phosphorus Magnesium Total Bilirubin Direct Bilirubin AST ALT Alkaline Phosphatase B-Natriuretic Peptide Total Protein Albumin Procalcitonin TSH 2.98 Free T4 0.97 Free T3 2.5 Cortisol Urine Color Urine Appearance Urine pH Ur Specific [place] Urine Protein Urine Glucose (UA) Urine Ketones Urine Blood Urine Nitrite Ur Leukocyte Esterase Rheumatoid Factor FLOR Screen FLOR Titer FLOR Pattern Proteinase 3 (PR3) Ab Myeloperoxidase Ab Respiratory Panel Ruby Adenovirus (Rapid PCR) B.pert (TEM-PCR) B.parapertussis DNA PCR C. pneumoniae DNA (PCR) Coronavirus (PCR) Coronavirus OC43 (PCR) Coronavirus HKU1 (PCR) Coronavirus 229E (PCR) Coronavirus NL63 (PCR) Human Metapneumovir PCR Influenza A (RT-PCR) Influenza Type A (PCR) Influenza B (RT-PCR) Influenza Type B (PCR) Influenza A & B Note M. pneumoniae (PCR) Parainfluenza 1 (PCR) Parainfluenza 2 (PCR) Parainfluenza 3 (PCR) Parainfluenza 4 (PCR) RSV (PCR) RSV RNA Qual (PCR) Entero/Rhino (PCR) SARS-CoV-2 RNA (RT-PCR) 08/24/20 08/24/20 08/24/20 12:47 12:47 12:47 WBC RBC Hgb Hct MCV MCH MCHC RDW Plt Count MPV Immature Gran % (Auto) Neut % (Auto) Lymph % (Auto) Emmons % (Auto) Eos % (Auto) Baso % (Auto) Lymph # (Auto) Emmons # (Auto) Eos # (Auto) Baso # (Auto) Abs Immat Gran (auto) Absolute Neuts (auto) Absolute Nucleated RBC Nucleated RBC % (auto) Smear Tech's Comments ESR PT INR APTT ABG pH ABG pCO2 ABG pO2 ABG HCO3 ABG O2 Saturation ABG Base Excess VBG pH VBG pCO2 VBG Oxygen Liters/Min VBG pO2 VBG HCO3 VBG O2 Saturation VBG Base Excess Oxygen Given Sodium Potassium Chloride Carbon Dioxide Anion Gap BUN Creatinine Estim Creat Clear Calc Estimated GFR POC Glucose Random Glucose Lactic Acid Calcium Phosphorus Magnesium Total Bilirubin Direct Bilirubin AST ALT Alkaline Phosphatase B-Natriuretic Peptide Total Protein Albumin Procalcitonin TSH Free T4 Free T3 Cortisol Urine Color Urine Appearance Urine pH Ur Specific [place] Urine Protein Urine Glucose (UA) Urine Ketones Urine Blood Urine Nitrite Ur Leukocyte Esterase Rheumatoid Factor < 15.0 FLOR Screen NEGATIVE FLOR Titer TNP FLOR Pattern TNP Proteinase 3 (PR3) Ab <1.0 Myeloperoxidase Ab <1.0 Respiratory Panel Ruby Adenovirus (Rapid PCR) B.pert (TEM-PCR) B.parapertussis DNA PCR C. pneumoniae DNA (PCR) Coronavirus (PCR) Coronavirus OC43 (PCR) Coronavirus HKU1 (PCR) Coronavirus 229E (PCR) Coronavirus NL63 (PCR) Human Metapneumovir PCR Influenza A (RT-PCR) Influenza Type A (PCR) Influenza B (RT-PCR) Influenza Type B (PCR) Influenza A & B Note M. pneumoniae (PCR) Parainfluenza 1 (PCR) Parainfluenza 2 (PCR) Parainfluenza 3 (PCR) Parainfluenza 4 (PCR) RSV (PCR) RSV RNA Qual (PCR) Entero/Rhino (PCR) SARS-CoV-2 RNA (RT-PCR) 08/24/20 08/24/20 08/24/20 12:47 14:47 19:55 WBC RBC Hgb Hct MCV MCH MCHC RDW Plt Count MPV Immature Gran % (Auto) Neut % (Auto) Lymph % (Auto) Emmons % (Auto) Eos % (Auto) Baso % (Auto) Lymph # (Auto) Emmons # (Auto) Eos # (Auto) Baso # (Auto) Abs Immat Gran (auto) Absolute Neuts (auto) Absolute Nucleated RBC Nucleated RBC % (auto) Smear Tech's Comments ESR PT 11.8 INR 1.0 APTT 57.8 H D ABG pH 7.42 ABG pCO2 39 ABG pO2 91 ABG HCO3 25 ABG O2 Saturation 97.2 ABG Base Excess 0.2 VBG pH VBG pCO2 VBG Oxygen Liters/Min VBG pO2 VBG HCO3 VBG O2 Saturation VBG Base Excess Oxygen Given ROOM AIR Sodium Potassium Chloride Carbon Dioxide Anion Gap BUN Creatinine Estim Creat Clear Calc Estimated GFR POC Glucose Random Glucose Lactic Acid Calcium Phosphorus Magnesium Total Bilirubin Direct Bilirubin AST ALT Alkaline Phosphatase B-Natriuretic Peptide Total Protein Albumin Procalcitonin TSH Free T4 Free T3 Cortisol 10.2 Urine Color Urine Appearance Urine pH Ur Specific [place] Urine Protein Urine Glucose (UA) Urine Ketones Urine Blood Urine Nitrite Ur Leukocyte Esterase Rheumatoid Factor FLOR Screen FLOR Titer FLOR Pattern Proteinase 3 (PR3) Ab Myeloperoxidase Ab Respiratory Panel Ruby Adenovirus (Rapid PCR) B.pert (TEM-PCR) B.parapertussis DNA PCR C. pneumoniae DNA (PCR) Coronavirus (PCR) Coronavirus OC43 (PCR) Coronavirus HKU1 (PCR) Coronavirus 229E (PCR) Coronavirus NL63 (PCR) Human Metapneumovir PCR Influenza A (RT-PCR) Influenza Type A (PCR) Influenza B (RT-PCR) Influenza Type B (PCR) Influenza A & B Note M. pneumoniae (PCR) Parainfluenza 1 (PCR) Parainfluenza 2 (PCR) Parainfluenza 3 (PCR) Parainfluenza 4 (PCR) RSV (PCR) RSV RNA Qual (PCR) Entero/Rhino (PCR) SARS-CoV-2 RNA (RT-PCR) 08/25/20 08/25/20 08/25/20 03:39 03:39 05:42 WBC 4.7 L RBC 3.06 L Hgb 9.4 L Hct 28.4 L MCV 92.8 MCH 30.7 MCHC 33.1 RDW 16.2 H Plt Count 100 L MPV 11.4 Immature Gran % (Auto) Neut % (Auto) Lymph % (Auto) Emmons % (Auto) Eos % (Auto) Baso % (Auto) Lymph # (Auto) Emmons # (Auto) Eos # (Auto) Baso # (Auto) Abs Immat Gran (auto) Absolute Neuts (auto) Absolute Nucleated RBC 0.040 H Nucleated RBC % (auto) 0.9 H Smear Tech's Comments ESR PT INR APTT ABG pH ABG pCO2 ABG pO2 ABG HCO3 ABG O2 Saturation ABG Base Excess VBG pH VBG pCO2 VBG Oxygen Liters/Min VBG pO2 VBG HCO3 VBG O2 Saturation VBG Base Excess Oxygen Given Sodium Potassium Chloride Carbon Dioxide Anion Gap BUN Creatinine Estim Creat Clear Calc Estimated GFR POC Glucose Random Glucose Lactic Acid Calcium 10.3 H Phosphorus 2.9 Magnesium Total Bilirubin Direct Bilirubin AST ALT Alkaline Phosphatase B-Natriuretic Peptide 354 H Total Protein Albumin Procalcitonin TSH Free T4 Free T3 Cortisol Urine Color Urine Appearance Urine pH Ur Specific [place] Urine Protein Urine Glucose (UA) Urine Ketones Urine Blood Urine Nitrite Ur Leukocyte Esterase Rheumatoid Factor FLOR Screen FLOR Titer FLOR Pattern Proteinase 3 (PR3) Ab Myeloperoxidase Ab Respiratory Panel Ruby Adenovirus (Rapid PCR) B.pert (TEM-PCR) B.parapertussis DNA PCR C. pneumoniae DNA (PCR) Coronavirus (PCR) Coronavirus OC43 (PCR) Coronavirus HKU1 (PCR) Coronavirus 229E (PCR) Coronavirus NL63 (PCR) Human Metapneumovir PCR Influenza A (RT-PCR) Influenza Type A (PCR) Influenza B (RT-PCR) Influenza Type B (PCR) Influenza A & B Note M. pneumoniae (PCR) Parainfluenza 1 (PCR) Parainfluenza 2 (PCR) Parainfluenza 3 (PCR) Parainfluenza 4 (PCR) RSV (PCR) RSV RNA Qual (PCR) Entero/Rhino (PCR) SARS-CoV-2 RNA (RT-PCR) 08/25/20 08/25/20 08/26/20 05:42 05:42 06:27 WBC RBC Hgb Hct MCV MCH MCHC RDW Plt Count MPV Immature Gran % (Auto) Neut % (Auto) Lymph % (Auto) Emmons % (Auto) Eos % (Auto) Baso % (Auto) Lymph # (Auto) Emmons # (Auto) Eos # (Auto) Baso # (Auto) Abs Immat Gran (auto) Absolute Neuts (auto) Absolute Nucleated RBC Nucleated RBC % (auto) Smear Tech's Comments ESR PT 11.3 INR 1.0 APTT ABG pH ABG pCO2 ABG pO2 ABG HCO3 ABG O2 Saturation ABG Base Excess VBG pH VBG pCO2 VBG Oxygen Liters/Min VBG pO2 VBG HCO3 VBG O2 Saturation VBG Base Excess Oxygen Given Sodium 140 137 Potassium 5.2 H 4.7 Chloride 107 104 Carbon Dioxide 27 28 Anion Gap 11 L 10 L BUN 17 H 17 H Creatinine 0.73 0.77 Estim Creat Clear Calc 127.2 118.1 Estimated GFR > 60 > 60 POC Glucose Random Glucose 140 H D 136 H Lactic Acid Calcium 10.3 H 9.9 Phosphorus Magnesium 1.5 L Total Bilirubin Direct Bilirubin AST ALT Alkaline Phosphatase B-Natriuretic Peptide Total Protein Albumin 3.6 Procalcitonin TSH Free T4 Free T3 Cortisol Urine Color Urine Appearance Urine pH Ur Specific [place] Urine Protein Urine Glucose (UA) Urine Ketones Urine Blood Urine Nitrite Ur Leukocyte Esterase Rheumatoid Factor FLOR Screen FLOR Titer FLOR Pattern Proteinase 3 (PR3) Ab Myeloperoxidase Ab Respiratory Panel Ruby Adenovirus (Rapid PCR) B.pert (TEM-PCR) B.parapertussis DNA PCR C. pneumoniae DNA (PCR) Coronavirus (PCR) Coronavirus OC43 (PCR) Coronavirus HKU1 (PCR) Coronavirus 229E (PCR) Coronavirus NL63 (PCR) Human Metapneumovir PCR Influenza A (RT-PCR) Influenza Type A (PCR) Influenza B (RT-PCR) Influenza Type B (PCR) Influenza A & B Note M. pneumoniae (PCR) Parainfluenza 1 (PCR) Parainfluenza 2 (PCR) Parainfluenza 3 (PCR) Parainfluenza 4 (PCR) RSV (PCR) RSV RNA Qual (PCR) Entero/Rhino (PCR) SARS-CoV-2 RNA (RT-PCR) 08/26/20 08/26/20 06:27 20:42 WBC 5.7 RBC 3.10 L Hgb 9.4 L Hct 28.4 L MCV 91.6 MCH 30.3 MCHC 33.1 RDW 16.3 H Plt Count 112 L MPV 10.8 Immature Gran % (Auto) 0.4 Neut % (Auto) 69.5 Lymph % (Auto) 15.8 L Emmons % (Auto) 12.9 H Eos % (Auto) 1.4 Baso % (Auto) 0.0 Lymph # (Auto) 0.9 L Emmons # (Auto) 0.7 Eos # (Auto) 0.1 Baso # (Auto) 0.0 Abs Immat Gran (auto) 0.02 Absolute Neuts (auto) 3.9 Absolute Nucleated RBC 0.050 H Nucleated RBC % (auto) 0.9 H Smear Tech's Comments ESR PT INR APTT ABG pH ABG pCO2 ABG pO2 ABG HCO3 ABG O2 Saturation ABG Base Excess VBG pH VBG pCO2 VBG Oxygen Liters/Min VBG pO2 VBG HCO3 VBG O2 Saturation VBG Base Excess Oxygen Given Sodium Potassium Chloride Carbon Dioxide Anion Gap BUN Creatinine Estim Creat Clear Calc Estimated GFR POC Glucose 179 H Random Glucose Lactic Acid Calcium Phosphorus Magnesium Total Bilirubin Direct Bilirubin AST ALT Alkaline Phosphatase B-Natriuretic Peptide Total Protein Albumin Procalcitonin TSH Free T4 Free T3 Cortisol Urine Color Urine Appearance Urine pH Ur Specific [place] Urine Protein Urine Glucose (UA) Urine Ketones Urine Blood Urine Nitrite Ur Leukocyte Esterase Rheumatoid Factor FLOR Screen FLOR Titer FLOR Pattern Proteinase 3 (PR3) Ab Myeloperoxidase Ab Respiratory Panel Ruby Adenovirus (Rapid PCR) B.pert (TEM-PCR) B.parapertussis DNA PCR C. pneumoniae DNA (PCR) Coronavirus (PCR) Coronavirus OC43 (PCR) Coronavirus HKU1 (PCR) Coronavirus 229E (PCR) Coronavirus NL63 (PCR) Human Metapneumovir PCR Influenza A (RT-PCR) Influenza Type A (PCR) Influenza B (RT-PCR) Influenza Type B (PCR) Influenza A & B Note M. pneumoniae (PCR) Parainfluenza 1 (PCR) Parainfluenza 2 (PCR) Parainfluenza 3 (PCR) Parainfluenza 4 (PCR) RSV (PCR) RSV RNA Qual (PCR) Entero/Rhino (PCR) SARS-CoV-2 RNA (RT-PCR) Assessment and Plan (1) Tegretol toxicity: Status: Acute (2) Altered mental status: Qualifiers: Altered mental status type: disorientation Qualified Code(s): R41.0 - Disorientation, unspecified Status: Acute (3) Sepsis associated hypotension: Status: Acute (4) Pancytopenia: Problem details: as per labs Status: Acute (5) Hypothyroidism: Status: Chronic (6) Adrenal hypofunction: Status: Acute (7) Cellulitis: Qualifiers: Laterality: unspecified laterality Site of cellulitis: extremity Site of cellulitis of extremity: lower extremity Qualified Code(s): L03.119 - Cellulitis of unspecified part of limb Status: Acute (8) Venous insufficiency of both lower extremities: Status: Acute (9) Intellectual disability: Status: Acute (10) SIADH (syndrome of inappropriate ADH production): Status: Acute 1. initially admitted altered mental status/ hypothermia/ hypertension/ bradycardia: initially admitted to ICU, required pressor support: in addition patient has received steroids, antibiotics? question of cellulitis initially was on Decadron which was changed to prednisone- because of the question of relative adrenal insufficiency also his Synthroid dose was increased to 62.5 mg daily continue to monitor renal function and electrolytes. seems with above management toxic metabolic encephalopathy seems improved significantly. 2. Pancytopenia : thought to be related Tegretol, seems improving, will continue to CBC . 3.possible cellulitis on LLE, pt had a similar presentation with hypothermia to [facility] 12/2019, end result was cellulitis, was on vanco for 3 days then PO doxy evaluated in December [address] Rios, now has left LE stage 3 ulcer ? leg ulcer on the left side there is a question of cellulitis versus pyoderma gangrenosum: rf neg, flor pending protease and myeloperoxidase not detected blood cultures so far negative, urine cultures growing Gram-positive cocci, colonization question due toFoley. respiratory panel for adenovirus, chlamydia pneumoniae, coronavirus PCR, influenza a and B, parainfluenza 1,2,3,4 seems negative in addition entero/rhinovirus PCR not detected as well as RSV RNA negative initially patient was on vancomycin,currently patient is on Augmentin as per ICU. 4. there is also question of a relative adrenal insufficiency / mild hypothyroidism: Synthroid at is adjusted as above also patient in prednisone. 5. dvt hx : of warfarin out as per patient's outpatient provider as per family, venous duplex in the hospital is also negative. 6.: electrolytic abnormalities : question multifactorial hyperkalemia and hyponatremia improving question of relative adrenal insufficiency, cortisol level pending Nephro evaluation added (11) Non-pressure chronic ulcer of other part of left lower leg limited to breakdown of skin: Problem details: improved from last wound care visit on 08/16/20. Continue current dressing with xeroform and please have hime follow up in the wound center upon discharge from the hospital Status: Acute
[2020-08-27 12:00] VITALS: BP 104/56; PULSE 85; RESP 19; TEMP 36.4; O2SAT 96
--- NOTE | 2020-08-27 12:39 | MHC.CM.PN ---
NURSE LANDFILL GAS COLLECTION SYSTEM OPERATOR NOTE ELECTRONIC MEDICAL RECORD REVIEWED ALONG WITH CASE DISCUSSED ON MULTIPLE DISCIPLINARY ROUNDS , PER HOSPITALIST PATIENT THEODORE HAVE RENAL WOUND AND I.D. CONSULT , PER WOUND CNSULT NOTE PATIENT HAS KNOW VeNOUS INSUFFICIENCY OF BOTH LOWER EXTREMITIES , (LEFT LEG WOUND 6X6X BY 0.1CM PARTIAL THICKNESS WITH ISLANDSA OF NEW EPITHELIALIZATION IMPORVED FRoM PREVIOUS EXAme 08/16/20) lpn care manager to continue to foilow for any changes in plan of care zack from the custodial reported [facility] with no specific findgs to what the cause was, he has been seen [facility] the [facility] DR MILLS AND [employer] DR AGUILLON THIS INFORMATION WAS GIVEN TO THE ENID FRANCIS WORKING WITH THE HOSPITALIST discharge plan anticiparte return [facility] custodial [facility] [phone] CONTACT NAMES AND NUMBERS KARI DEBORAH [phone] SISTER AND HCP ON FILE ZACK COATES (housing case manager) [phone] deejay lezama (senior java programmer) [phone] ext [phone] [employer] phone [phone] timmy chaparro (service cordinator [phone] Ext [phone]
--- NOTE | 2020-08-27 12:43 | P.CNID_ITS ---
History of Present Illness Data of Consult Service Date: 08/27/20 Requesting physician: Annamarie Cherry Primary Care Provider: Unknown Physician HPI Reason for consult: skin lesion left leg,VRE urine He presents from skilled nursing where he was noticed to have bradycardia and hypothermia day of admission ICU was consulted and received evaluation for adrenal insufficiency He has urine 10-50,000 VRE and urinalysis benign on 08/23 Patient has no fever or chills He has fallen multiple times and has had wound left lower leg He is not on oxygen and has Henley at this time Review of Systems Review of Systems: Yes Unobtainable due to mental status PMFSH Past Medical History Medical History Adrenal hypofunction Anemia Diabetes type 2, controlled DVT (deep venous thrombosis) Hypertension Hypothyroidism Morbid obesity SIADH (syndrome of inappropriate ADH production) Tegretol toxicity Venous insufficiency of both lower extremities Functional capacity: wheelchair bound Family History Family history: reviewed and not pertinent Social History Social History Housing Other:: skilled nursing Alcohol intake: never Smoking Status: Never smoker Use of substances other than those prescribed or required for medical reasons: No Currently Displaying Signs/Symptoms of Drug Intoxication Withdrawal: No Advance Directives: No Advance Directives Information Provided: Yes Advance Directives Date on File: 08/16/20 Do you have thoughts of harming others: None Do you have a plan to hurt others: No Plan service: No Current occupational status: disabled Meds Allergies Allergy/AdvReac Type Severity Reaction Status Date / Time No Known Allergies Allergy Verified 08/24/20 07:57 [No Known Allergies*] Home Medications Medication Instructions Recorded Confirmed Type aluminum 1 ea TOPICAL BID 08/23/20 08/23/20 History carbamazepine 400 mg PO BID 08/23/20 08/24/20 History furosemide 40 mg MOWEFR@0800 08/23/20 08/24/20 History levothyroxine 50 mcg PO DAILY 08/23/20 08/23/20 History multivitamin [Daily Vitamin] 1 tab PO DAILY 08/23/20 08/23/20 History nystatin 1 applic TOPICAL BID 08/23/20 08/23/20 History vitamin B complex 1 cap PO QAM 08/23/20 08/23/20 History acetaminophen 650 mg PO Q4H PRN 08/24/20 08/24/20 History aspirin 81 mg PO DAILY 08/24/20 08/24/20 History clotrimazole [Mycelex OTC] 1 applic TOPICAL BID PRN 08/24/20 08/24/20 History terbinafine HCl [Lamisil] 1 applic TOPICAL BEDTIME 08/24/20 08/24/20 History zinc oxide 1 applic TOPICAL BID PRN 08/24/20 08/24/20 History Physical Exam Vital Signs: Vital Signs: Vital Signs Temp Pulse Resp BP Pulse Ox 08/27/20 12:00 97.5 F 85 19 104/56 L 96 08/27/20 08:00 97.5 F 63 18 99/50 L 97 08/27/20 04:00 97.4 F 55 16 120/54 L 96 08/27/20 00:00 97.7 F 58 16 136/70 98 08/26/20 19:18 98.3 F 69 19 132/60 96 08/26/20 15:45 98.0 F 61 149/66 H 98 Body Mass Index 34.6 Const: General: cooperative and healthy appearing HENMT: Head: Yes normal to inspection Neck: Neck: Yes normal visual inspection and Yes no meningeal signs Cardio: Rate: regular rate and bradycardic Rhythm: regular rhythm GI: Inspection: Yes normal to inspection Skin: General skin exam: no rashes or lesions noted Neuro: General: moves all extremities and no meningeal signs Assessment and Plan (1) Non-pressure chronic ulcer of other part of left lower leg limited to breakdown of skin: Problem details: improved from last wound care visit on 08/16/20. Continue current dressing with xeroform and please have hime follow up in the wound center upon discharge from the hospital This appears to be consistent with abrasion,doesnt appear to have current infection or pyoderma or malignancy No antibiotics ,punch biopsy if not resolving one month Status: Acute (2) Adrenal hypofunction: Status: Acute (3) Altered mental status: Qualifiers: Altered mental status type: disorientation Qualified Code(s): R41.0 - Disorientation, unspecified Status: Acute (4) Venous insufficiency of both lower extremities: Status: Acute (5) Intellectual disability: Status: Acute (6) VRE (vancomycin resistant enterococcus) culture positive: Status: Acute Patient with lower extremity abrasion/ulcer not infected Probably venous stasis versus abrasion Doubt pyoderma No antibiotics at this time Treat venous stasis Check skin punch biopsy only if not healing one month No need to treat VRE in urine ,likely colonized
[2020-08-27 16:00] VITALS: BP 155/77; PULSE 55; RESP 18; TEMP 36.5; O2SAT 96
[2020-08-27] MEDS: Amoxicillin/Potassium Clav 875 MG TABLET PO (17:08)
--- NOTE | 2020-08-27 17:30 | HO.PM.IMPN ---
Subjective Subjective Date of Service: 08/27/20 Interval History: patient seems more awake , denies any chest pain or sob. Review of Systems patient denies any abdominal pain or fever or chills or chest pain or shortness of breath. Physical Exam Vital Signs: Vital Signs: Vital Signs Temp Pulse Resp BP Pulse Ox 08/27/20 12:00 97.5 F 85 19 104/56 L 96 08/27/20 08:00 97.5 F 63 18 99/50 L 97 08/27/20 04:00 97.4 F 55 16 120/54 L 96 08/27/20 00:00 97.7 F 58 16 136/70 98 08/26/20 19:18 98.3 F 69 19 132/60 96 Body Mass Index 34.6 physical exam: Cvs: rrr, [id number] , no murmur res: clear to auscultation ,no rhonchii or wheezing abd: no rebound or guarding ,nt, bs present. ext : left leg wound? , seems similar to yesterday, no discharge. neuro: Seems more awake , could able to answer simple question,nonfocal. Objective Data Current Medications Generic Name Dose Route Start Last Admin Trade Name Freq PRN Reason Stop Dose Admin Amoxicillin/Clavulanate Potassium 875 mg 08/25/20 18:00 08/27/20 17:08 Amoxicillin/Potassium Clav 875 Mg Tablet PO 875 mg Q12H [facility] Administration Levothyroxine Sodium 50 mcg 08/26/20 06:00 08/27/20 06:21 Levothyroxine Sodium 50 Mcg Tablet PO Not Given DAILY@0600 [facility] Levothyroxine Sodium 12.5 mcg 08/26/20 06:00 08/27/20 06:21 Levothyroxine Sodium 25 Mcg Tablet PO Not Given DAILY@0600 [facility] Prednisone 30 mg 08/25/20 15:30 08/27/20 08:47 Prednisone 10 Mg Tablet PO 30 mg DAILY [facility] Administration Sodium Chloride 3 ml 08/24/20 08:00 08/27/20 17:10 0.9 % Sodium Chloride Flush 3 Ml Syringe IVFLUSH 3 ml QSHIFT [facility] Administration Labs CBC & Chem 7: 08/26/20 06:27 08/26/20 06:27 Microbiology Microbiology Results: Microbiology 08/23/20 20:49 Urine Catheterized - Henley Catheter Urine Culture - Final Enterococcus faecalis 08/23/20 19:55 Blood - Venous Blood Culture - Preliminary No growth after 48 hours. 08/23/20 19:41 Blood - Venous Blood Culture - Preliminary No growth after 48 hours. Assessment and Plan (1) Tegretol toxicity: Status: Acute (2) Altered mental status: Status: Acute (3) Cellulitis: Status: Acute (4) Adrenal hypofunction: Status: Acute Assessment and Plan: (5) Sepsis associated hypotension: Status: Acute (6) Pancytopenia: Problem details: as per labs Status: Acute (7) Hypothyroidism: Status: Chronic (8) Venous insufficiency of both lower extremities: Status: Acute (9) Intellectual disability: Status: Acute (10) SIADH (syndrome of inappropriate ADH production): Status: Acute Assessment and Plan: 1. initially admitted altered mental status/ hypothermia/ hypotension/ bradycardia: initially admitted to ICU, required pressor support: Above was thought to be multifactorial question Tegretol/ relative adrenal insufficiency, relative low thyroid level. also patient has received steroids, antibiotics? question of cellulitis-seen by Id off antibiotic- less likely cellulitis. discussed with ID seems doubtful about pyoderma gangrenosum, wound area thought be more like abrasion due to venous stasis initially was on Decadron which was changed to prednisone- because of the question of relative adrenal insufficiency and Synthroid 62.5 mg daily seems with above management toxic metabolic encephalopathy seems improved significantly. 2. Pancytopenia : thought to be related Tegretol, seems improving, will continue to CBC . 3.possible cellulitis on LLE, pt had a similar presentation with hypothermia to [facility] 12/2019, end result was cellulitis, was on vanco for 3 days then PO doxy evaluated in December [address] Rios, now has left LE stage 3 ulcer ? leg ulcer on the left side there is a question of cellulitis versus pyoderma gangrenosum: rf neg, flor pending protease and myeloperoxidase not detected blood cultures so far negative, ua neg,urine cultures growing Gram-positive cocci-enterococcus faecalis ? respiratory panel for adenovirus, chlamydia pneumoniae, coronavirus PCR, influenza a and B, parainfluenza 1,2,3,4 seems negative in addition entero/rhinovirus PCR not detected as well as RSV RNA negative initially patient was on vancomycin,currently patient is on Augmentin as per ICU. 4. there is also question of a relative adrenal insufficiency / mild hypothyroidism: Synthroid at is adjusted as above also patient in prednisone. 5. dvt hx : of warfarin out as per patient's outpatient provider as per respite care provider , venous duplex in the hospital is also negative. 6.: electrolytic abnormalities : question multifactorial hyperkalemia and hyponatremia improving question of relative adrenal insufficiency, cortisol level 10 which is within the normal range Nephro evaluation noted - recommended to taper steroids nephro fu in am
[2020-08-27 19:58] VITALS: BP 148/69; PULSE 56; RESP 16; TEMP 36.4; O2SAT 98
--- NOTE | 2020-08-27 22:40 | PC.NURSE ---
Pt refused assessment twice. Patient stated that I want privacy. I don't want to be bothered. I am fine. Pt is alert. No signs of distress upon visual appearance. Pt would not let nurse inspect IV.
--- NOTE | 2020-08-27 23:50 | PC.NURSE ---
pt refused 08/28/2020 00:00 vitals. Two attempts were made. notified
[2020-08-28 00:19] VITALS: BP 119/60; PULSE 59; RESP 16; TEMP 36.8; O2SAT 96
[2020-08-28 04:59] VITALS: BP 122/57; PULSE 61; RESP 16; TEMP 36.2; O2SAT 97
[2020-08-28] MEDS: Levothyroxine Sodium 50 MCG TABLET PO (04:59)
[2020-08-28] MEDS: Levothyroxine Sodium 25 MCG TABLET 12.5 MCG PO (04:59)
[2020-08-28] MEDS: Amoxicillin/Potassium Clav 875 MG TABLET PO (04:59)
[2020-08-28 08:00] VITALS: BP 100/54; PULSE 62; RESP 18; TEMP 36.2; O2SAT 94
--- NOTE | 2020-08-28 08:51 | CONS_ITS ---
DATE OF SERVICE: 08/26/2020 REASON FOR CONSULTATION: I was called to see this patient to assist in management of electrolyte imbalance. HISTORY OF PRESENT ILLNESS: To summarize, Blayne is a 64-year-old man with a history of hypertension, hypothyroidism, and intellectual disability along with diabetes mellitus, who has been admitted in the past with hypothermia. He comes back to the ED from the longterm with of altered mentation and slurred speech. He also had mild bradycardia. He was found to be hypothermic. Since he was hypotensive on admission, he was admitted to the ICU floor after being stabilized. This consultation has been requested for management of the electrolyte abnormality. He had mild hyperkalemia on admission. There is a history of hyponatremia in the past. PAST MEDICAL HISTORY: Ongoing medical problems include history of diabetes mellitus, obesity, hypothyroidism, history of hypertension, DVT in the past. FAMILY HISTORY: Not significant for any renal insufficiency. SOCIAL HISTORY: He is a resident of a [facility]. No history of any smoking or alcohol abuse. MEDICATIONS: At time of admission include carbamazepine, furosemide, multivitamins, aspirin . All the current medications were reviewed. REVIEW OF SYSTEMS: Not obtainable due to his mentation. Most of the information was obtained from the chart. PHYSICAL EXAMINATION: GENERAL: Blayne is awake, comfortable, not in any distress. NECK: Supple. No JVD. HEENT: Mucosa is moist. LUNGS: Air entry equal. No rales. HEART: S1 and S2 heard. No gallop or rub. ABDOMEN: Soft, nontender. EXTREMITIES: No significant edema. No rash. No clubbing. VITAL SIGNS: Blood pressure was 132/60, pulse 69, temperature 98.3. LABORATORY DATA: Hemoglobin 9.4, platelets 112. Sodium 137, potassium 4.7, BUN 17, creatinine 0.77. Calcium was 10.3 on admission, has decreased to 9.9. Urinalysis showed specific gravity of 1.020, no protein or blood by dipstick. IMPRESSION: Middle-aged man with hypertension, diabetes mellitus, and hypothyroidism, comes in with hypothermia. Initially, he had mild hyperkalemia . The renal function has been stable. Clinically, there is a suspicion for adrenal insufficiency. My recommendation will be to obtain serum cortisol. In the meantime, we will keep him on a low-potassium diet and watch the serum potassium. The serum sodium is normal at this time and I do not think he needs any water restriction. He was on high dose of carbamazepine, which could be a contributing factor as well. We will follow him along with the team. MD HARLEEN Henao/VENICE / [id number]
[2020-08-28 08:58] LABS: Hematocrit 31.9 % (42-52); Hemoglobin 10.6 g/dl (14.0-18.0); Mean Corpuscular HGB Conc 33.2 g/dl (31.0-36.0); Mean Corpuscular Hemoglobin 30.8 pg (27.0-33.0); Mean Corpuscular Volume 92.7 fL (80-98); Mean Platelet Volume 10.3 fL (9.4-12.4); Platelet Count 128 X10*3/uL (160-400); Red Blood Count 3.44 X10*6/uL (4.60-5.80); Red Cell Distribution Width 16.4 % (11.0-16.0); White Blood Count 7.9 X10*3/uL (4.8-10.8)
[2020-08-28] MEDS: predniSONE 10 MG TABLET 30 MG PO (09:09)
[2020-08-28] MEDS: 0.9 % Sodium Chloride Flush 3 ML SYRINGE IVFLUSH (09:11)
[2020-08-28 09:29] LABS: Anion Gap 11 (12-20); Blood Urea Nitrogen 19 mg/dL (9-16); Carbon Dioxide 29 mmol/L (22-29); Chloride 102 mmol/L (96-108); Creatinine Clr Calc Pharmacy 116.9; Estimated Glomerular Filt Rate > 60; Glucose Random 103 mg/dL (60-115); Potassium 4.3 mmol/l (3.3-5.1); Sodium 138 mmol/L (135-145)
--- NOTE | 2020-08-28 10:39 | MHC.CM.PN ---
nurse manager critical care note electronic medical record reviewed along with case discussed with staff nurse , anticipate discharge back to [facility] today . i called to [facility] program aide to inform her of this possibility , i gave her the fax number to the nurses station for staff nurse to have hospitlist to complete with discharge paperwork also requested that the hospitlaist also provide a discharge summary before transfer .,to be transported via [facility] t/c to health care proxy dakotah butch [phone] of anticipated discharge and verbal expalined abut the medicare im update discharge plan
[2020-08-28 11:33] VITALS: BP 122/65; PULSE 76; RESP 18; TEMP 36; O2SAT 97
--- NOTE | 2020-08-28 12:00 | P.DS_ITS ---
DS: Providers Provider Date of admission: 08/24/20 00:55 Primary care physician: Unknown Physician Consults: 08/24/20 06:26 Consult to Wound Care Provider Routine Consulting Provider: Nathan French Reason for consultation: 7x5 cm. necrotic leg lesion and sepsis Has provider been notified: No 08/26/20 08:16 Consult to Infectious Diseases Routine Consulting Provider: Juliana Rodriguez Reason for consultation: LEFT LEG WOUND ? infection vs pyoderma Has provider been notified: No 08/26/20 08:17 Consult to Nephrology Routine Consulting Provider: Surya Adams Reason for consultation: hypothermia/hypotenion -hyponatremia /hyperkalemia - ?Adrenal insuff. Has provider been notified: No DS: Diagnosis Discharge Diagnosis (1) Hyperkalemia: Status: Acute DS: Summary Hospital Course Hospital Course: 64-year-old male with a past medical history of hypertension, hypothyroid, intellectual disability, DVT was on warfarin unclear if he still is, diabetes type 2, anemia, morbid obesity and multiple falls who lives in a shelter. He was BIBA to the ED because the shelter said he was having 3-4 days of slurred speech, low heart rate in the 40s and 50s and lethargy. the EMS crew knows the patient well and they said he is speaking in at his baseline. The patient stated he felt well and normal. In the ED, patient's vital signs were notable for hypothermia at 91.2 degrees F, heart rate of 44 and a BP of 87/21. Patient's labs were notable for low WBC 3.8, low RBC 3.04, low H&H 9.2 & 28 respectively. Platelets were low at 85. PT/INR were wnl but aPTT was elevated at 51.1. chemistries were WNL with the exception of potassium slightly elevated at 5.4 and BUN slightly elevated at 17. BNP was elevated at 218 and TSH was WNL at 3.24. urinalysis was negative for infection. Head CT was negative for anything acute and CXR showed interstitial edema (this was done after pt rec'd 1.5L of IVF). While in the ED, the patient received 1.5 L of fluids as per sepsis protocol, he was also placed on a Ramana Hugger. A TLC was placed and pt is on a Levophed drip. His temperature, BP and HR have normalized. He was also given a dose of Zosyn, source of infection is unknown yet. Pmx: Anemia Diabetes type 2, controlled DVT (deep venous thrombosis) Hypertension Hypothyroidism Morbid obesity Venous insufficiency of both lower extremities. Hospital course problem lopez: 1. initially admitted altered mental status/ hypothermia/ hypertension/ bradycardia: initially admitted to ICU, required pressor support: patient required pressor support norepinephrine, and bedside echo As per ICU note:systolic function seem to be fairly well preserved certainly a ejection fraction at least 50% with no primary valve or pericardial disease nor any effusion. In addition patient was treated for relative adrenal insufficiency / mild hypo thyroidism: patient's Synthroid was increased to 62.5 mg daily and also received Decadron in ICU in addition patient has received steroids, antibiotics? question of cellulitis initially was on Decadron which was changed to prednisone- because of the question of relative adrenal insufficiency also his Synthroid dose was increased to 62.5 mg daily continue to monitor renal function and electrolytes. seems with above management toxic metabolic encephalopathy seems improved significantly. 2. Pancytopenia : thought to be related Tegretol, seems improving, will continue to CBC . 3.possible cellulitis on LLE, pt had a similar presentation with hypother[place] [facility], end result was cellulitis, was on vanco for 3 days then PO doxy evaluated in December [address] Rios, now has left LE stage 3 ulcer ? leg ulcer on the left side there is a question of cellulitis versus pyoderma gangrenosum: rf neg, flor pending protease and myeloperoxidase not detected blood cultures so far negative, urine cultures growing Gram-positive cocci, colonization question due toFoley. respiratory panel for adenovirus, chlamydia pneumoniae, coronavirus PCR, influenza a and B, parainfluenza 1,2,3,4 seems negative in addition entero/rhinovirus PCR not detected as well as RSV RNA negative initially patient was on vancomycin,currently patient is on Augmentin as per ICU. 4. there is also question of a relative adrenal insufficiency / mild hypothyroidism: Synthroid at is adjusted as above also patient in prednisone. 5. dvt hx : of warfarin out as per patient's outpatient provider as per family, venous duplex in the hospital is also negative. 6.: electrolytic abnormalities : question multifactorial hyperkalemia and hyponatremia improving question of relative adrenal insufficiency, cortisol level pending Nephro evaluation added leg ulcer : left leg-improving from last wound care visit on 08/16/20 as per wound care. Continue current dressing with xeroform and please have hime follow up in the wound center upon discharge from the hospital Time Spent with Patient Time attestation: Total time spent providing and/or coordinating discharge services: Physical Exam Vital Signs: Vital Signs: Vital Signs Temp Pulse Resp BP Pulse Ox 08/28/20 11:33 96.8 F 76 18 122/65 97 08/28/20 08:00 97.1 F 62 18 100/54 L 94 08/28/20 04:59 97.1 F 61 16 122/57 L 97 08/28/20 00:19 98.3 F 59 16 119/60 96 08/27/20 19:58 97.5 F 56 16 148/69 H 98 08/27/20 16:00 97.7 F 55 18 155/77 H 96 Body Mass Index 34.6 DS: Data Data Completed and Pending Labs on day of discharge: Labs from last 24 hours 08/28/20 08/28/20 08:44 08:44 WBC 7.9 RBC 3.44 L Hgb 10.6 L Hct 31.9 L MCV 92.7 MCH 30.8 MCHC 33.2 RDW 16.4 H Plt Count 128 L MPV 10.3 Absolute Nucleated RBC 0.000 Nucleated RBC % (auto) 0.0 Sodium 138 Potassium 4.3 Chloride 102 Carbon Dioxide 29 Anion Gap 11 L BUN 19 H Creatinine 0.78 Estim Creat Clear Calc 116.9 Estimated GFR > 60 Random Glucose 103 Calcium 10.0 Preliminary micro results at discharge 08/23/20 19:55 Blood Culture - Preliminary Blood - Venous No growth after 48 hours. 08/23/20 19:41 Blood Culture - Preliminary Blood - Venous No growth after 48 hours. Discharge Plan Discharge Referrals: shelter [Other] ([facility] program paraprofessional notified) [facility] [place] [facility] [Other] (they will call [facility] mascorro program paraprofessional to schedule follow up appointment [phone]) Jason Barillas MD [Physician] - Physician,Unknown [Primary Care Provider] - Discharge Medications: No Action levothyroxine 50 mcg tablet 50 mcg PO DAILY RF: 0 multivitamin [Daily Vitamin] Tablet 1 tab PO DAILY RF: 0 furosemide 40 mg Tablet 40 mg MOWEFR@0800 RF: 0 carbamazepine 400 mg tablet extended release 12 hr 400 mg PO BID RF: 0 nystatin 100,000 unit/gram powder 1 applic topical BID RF: 0 vitamin B complex Capsule 1 cap PO QAM RF: 0 aluminum Paste 1 ea TOPICAL BID RF: 0 aspirin 81 mg Tablet,Delayed Release (Dr/Ec) 81 mg PO DAILY RF: 0 terbinafine HCl [Lamisil] 1 % Cream 1 applic TOPICAL BEDTIME RF: 0 acetaminophen 650 mg Tablet 650 mg PO Q4H PRN (Reason: Pain (Scale Score 1-3)) RF: 0 clotrimazole [Mycelex OTC] 1 % Cream 1 applic TOPICAL BID PRN (Reason: Rash) RF: 0 zinc oxide Cream 1 applic TOPICAL BID PRN (Reason: Rash) RF: 0
--- NOTE | 2020-08-28 12:40 | HO.PM.IMPN ---
Subjective Subjective Date of Service: 08/28/20 Interval History: mood disorder Review of Systems patient denies any shortness of breath or chest pain or abdominal pain. Seems uncooperative behavior lopez. Physical Exam Vital Signs: Vital Signs: Vital Signs Temp Pulse Resp BP Pulse Ox 08/28/20 11:33 96.8 F 76 18 122/65 97 08/28/20 08:00 97.1 F 62 18 100/54 L 94 08/28/20 04:59 97.1 F 61 16 122/57 L 97 08/28/20 00:19 98.3 F 59 16 119/60 96 08/27/20 19:58 97.5 F 56 16 148/69 H 98 08/27/20 16:00 97.7 F 55 18 155/77 H 96 Body Mass Index 34.6 physical exam: Cvs: rrr, [id number] , no murmur res: clear to auscultation ,no rhonchii or wheezing abd: no rebound or guarding ,nt, bs present. ext pulses present , no cyanosis , leg wound are seems clean , no discharge. neuro: On sirs simple questions , nonfocal. Objective Data Current Medications Generic Name Dose Route Start Last Admin Trade Name Freq PRN Reason Stop Dose Admin Amoxicillin/Clavulanate Potassium 875 mg 08/25/20 18:00 08/28/20 04:59 Amoxicillin/Potassium Clav 875 Mg Tablet PO 875 mg Q12H EDUARDO Administration Levothyroxine Sodium 50 mcg 08/26/20 06:00 08/28/20 04:59 Levothyroxine Sodium 50 Mcg Tablet PO 50 mcg DAILY@0600 EDUARDO Administration Levothyroxine Sodium 12.5 mcg 08/26/20 06:00 08/28/20 04:59 Levothyroxine Sodium 25 Mcg Tablet PO 12.5 mcg DAILY@0600 EDUARDO Administration Prednisone 30 mg 08/25/20 15:30 08/28/20 09:09 Prednisone 10 Mg Tablet PO 30 mg DAILY EDUARDO Administration Sodium Chloride 3 ml 08/24/20 08:00 08/28/20 09:11 0.9 % Sodium Chloride Flush 3 Ml Syringe IVFLUSH 3 ml QSHIFT EDUARDO Administration Labs CBC & Chem 7: 08/28/20 08:44 08/28/20 08:44 Microbiology Microbiology Results: Microbiology 08/23/20 20:49 Urine Catheterized - Wallace Catheter Urine Culture - Final Enterococcus faecalis 08/23/20 19:55 Blood - Venous Blood Culture - Preliminary No growth after 48 hours. 08/23/20 19:41 Blood - Venous Blood Culture - Preliminary No growth after 48 hours. Assessment and Plan (1) Altered mental status: Status: Acute (2) Cellulitis: Status: Acute (3) Adrenal hypofunction: Status: Acute Assessment and Plan: (4) Tegretol toxicity: Status: Acute (5) Sepsis associated hypotension: Status: Acute (6) Pancytopenia: Problem details: as per labs Status: Acute (7) Hypothyroidism: Status: Chronic (8) Venous insufficiency of both lower extremities: Status: Acute (9) Intellectual disability: Status: Acute (10) SIADH (syndrome of inappropriate ADH production): Status: Acute Assessment and Plan: 1. initially admitted altered mental status/ hypothermia/ hypotension/ bradycardia: initially admitted to ICU, required pressor support: Above was thought to be multifactorial question Tegretol related / relative adrenal insufficiency, relative low thyroid level. also patient has received steroids, antibiotics? question of cellulitis-seen by Id off antibiotic- less likely cellulitis. discussed with ID seems doubtful about pyoderma gangrenosum, wound area thought be more like abrasion due to venous stasis initially was on Decadron which was changed to prednisone- because of the question of relative adrenal insufficiency and Synthroid 62.5 mg daily seems with above management toxic metabolic encephalopathy seems improved significantly. 2. Pancytopenia : thought to be related Tegretol, seems improving, will continue to CBC . 3.possible cellulitis on LLE, pt had a similar presentation with [place] [facility] [place], end result was cellulitis, was on vanco for 3 days then PO doxy evaluated in December [address] Rios, now has left LE stage 3 ulcer ? leg ulcer on the left side there is a question of cellulitis versus pyoderma gangrenosum: rf neg, flor pending protease and myeloperoxidase not detected blood cultures so far negative, ua neg,urine cultures growing Gram-positive cocci-enterococcus faecalis ? respiratory panel for adenovirus, chlamydia pneumoniae, coronavirus PCR, influenza a and B, parainfluenza 1,2,3,4 seems negative in addition entero/rhinovirus PCR not detected as well as RSV RNA negative initially patient was on vancomycin,currently patient is on Augmentin as per ICU. ID fu -? further need of augemntin? has ch wallace and urine culture postive 4. there is also question of a relative adrenal insufficiency / mild hypothyroidism: Synthroid at is adjusted as above also patient in prednisone- discussed with Nephro patient's blood pressure, temperature, electrolytes seems better - will continue prednisone and taper it 5 mg Q 3 day, snf needs to arrange an appointment with endocrinology out patiently in next 1-2 weeks- for further management and investigation for above issues. 5. dvt hx : of warfarin out as per patient's outpatient provider as per home care manager , venous duplex in the hospital is also negative. 6.: electrolytic abnormalities : question multifactorial hyperkalemia and hyponatremia improving question of relative adrenal insufficiency, cortisol level 10 which is within the normal range Nephro evaluation noted - recommended to taper steroids As above. 7. patient has mood disorder: He is off Tegretol and is behavior is are off since yesterday, we will add psych consult for further management.
--- NOTE | 2020-08-28 13:41 | MHC.CM.PN ---
NURSE GAMBLING FLOOR SUPERVISOR NOTE HOSPITLAIST INFORMED ME THAT PATIENT WILL NOT BE DISCHAGRED PLANNED TODAY HE HAS HISTORY OF MOOD DISAORDER AND OFF HIS MEDICATION , HOSPITLAIST HAS CALLED FOR PSYCH CONSULT FOR MEDICATION MANAGEMENT . INFORMED PATIENT HEALTH CARE PROXY KARI mascorro the senior care programming manager menagerie caretaker to continue to follow
[2020-08-28 14:58] VITALS: BP 109/53; PULSE 62; TEMP 36.3; O2SAT 95
--- NOTE | 2020-08-28 16:45 | P.CNPS_ITS ---
History of Present Illness Chief Complaint: lethargy, hr 40's/50's Reason for Consult: Agitation, resisting care Requesting physician: Annamarie Cherry Discussed with referring provider: No Sources of Information: patient interviewed and chart reviewed HPI Narrative: Pt is a 64 year old male with history of intellectual disability/or neurodevelopmental disorder, unclear what diagnosis is--previous records state Autism Spectrum Disorder. Currently medically admitted for question of adrenal insufficiency and question of Tegretol toxicity. Previously in ICU, Tegretol d/c (noted that patient taking this for behavioral issues and not seizures). Pt now on medical floor demonstrating behavioral issues. refusing care to coccyx that reportedly has skin tear, swearing at clinical team, etc. Pt seen briefly in room 380. Awake, alert, eating pudding upon this proposal writer's arrival. Pt initially pleasant, then asked to touch my hair, I declined request, and patient told me to leave his room. Medical Evaluation Reviewed: Yes Personal & Social History: resides at [facility] in [place] reported that staff have been coming to see him here Review of Systems Review of Systems Yes Other (interview cut short-pt asked this proposal writer to leave ) [facility] Medical History Adrenal hypofunction Anemia Diabetes type 2, controlled DVT (deep venous thrombosis) Hypertension Hypothyroidism Morbid obesity SIADH (syndrome of inappropriate ADH production) Tegretol toxicity Venous insufficiency of both lower extremities Diagnostics Vital Signs (24Hr): Vital Signs - 24 hr 08/27/20 19:58 08/28/20 00:19 08/28/20 04:59 Temperature 97.5 F 98.3 F 97.1 F Pulse Rate 56 59 61 Respiratory Rate 16 16 16 Blood Pressure 148/69 H 119/60 122/57 L Pulse Oximetry 98 96 97 08/28/20 08:00 08/28/20 11:33 08/28/20 14:58 Temperature 97.1 F 96.8 F 97.3 F Pulse Rate 62 76 62 Respiratory Rate 18 18 Blood Pressure 100/54 L 122/65 109/53 L Pulse Oximetry 94 97 95 Body Mass Index 34.6 Labs Results: 08/28/20 08:44 08/28/20 08:44 Labs: Laboratory Results - last 48 hr 08/24/20 08/24/20 08/26/20 12:47 14:47 20:42 WBC RBC Hgb Hct MCV MCH MCHC RDW Plt Count MPV Absolute Nucleated RBC Nucleated RBC % (auto) Sodium Potassium Chloride Carbon Dioxide Anion Gap BUN Creatinine Estim Creat Clear Calc Estimated GFR POC Glucose 179 H Random Glucose Calcium Cortisol 10.2 JAVIER Screen NEGATIVE JAVIER Titer TNP JAVIER Pattern TNP 08/28/20 08/28/20 08:44 08:44 WBC 7.9 RBC 3.44 L Hgb 10.6 L Hct 31.9 L MCV 92.7 MCH 30.8 MCHC 33.2 RDW 16.4 H Plt Count 128 L MPV 10.3 Absolute Nucleated RBC 0.000 Nucleated RBC % (auto) 0.0 Sodium 138 Potassium 4.3 Chloride 102 Carbon Dioxide 29 Anion Gap 11 L BUN 19 H Creatinine 0.78 Estim Creat Clear Calc 116.9 Estimated GFR > 60 POC Glucose Random Glucose 103 Calcium 10.0 Cortisol JAVIER Screen JAVIER Titer JAVIER Pattern Mental Status Exam Mental Status Exam Level of Consciousness: Awake and Alert Patient Behavior: Belligerent Mood Description: Calm Affect Description: Calm Patient Cognition Impaired: Yes Judgement: Poor Medications Medications Current Medications Generic Name Dose Route Start Last Admin Trade Name Freq PRN Reason Stop Dose Admin Amoxicillin/Clavulanate Potassium 875 mg 08/25/20 18:00 08/28/20 04:59 Amoxicillin/Potassium Clav 875 Mg Tablet PO 875 mg Q12H EDUARDO Administration Levothyroxine Sodium 50 mcg 08/26/20 06:00 08/28/20 04:59 Levothyroxine Sodium 50 Mcg Tablet PO 50 mcg DAILY@0600 EDUARDO Administration Levothyroxine Sodium 12.5 mcg 08/26/20 06:00 08/28/20 04:59 Levothyroxine Sodium 25 Mcg Tablet PO 12.5 mcg DAILY@0600 EDUARDO Administration Prednisone 30 mg 08/25/20 15:30 08/28/20 09:09 Prednisone 10 Mg Tablet PO 30 mg DAILY EDUARDO Administration Sodium Chloride 3 ml 08/24/20 08:00 08/28/20 09:11 0.9 % Sodium Chloride Flush 3 Ml Syringe IVFLUSH 3 ml QSHIFT EDUARDO Administration Allergies Allergies Allergy/AdvReac Type Severity Reaction Status Date / Time No Known Allergies Allergy Verified 08/24/20 07:57 [No Known Allergies*] Assessment & Plan Assessment & Plan (1) Intellectual disability: Status: Acute Code(s): F79 - Unspecified intellectual disabilities Recommendations: * If patient responds positively to [facility] staff, attempt to complete most important care with them present to offer support * Based on current clinical picture other mood stabilizers not ideal at this time, may consider low dose seroquel (12.5mg BID PRN) for agitation. * Collateral from outpt psychiatric provider regarding previous trials may be helpful * (2) Adrenal hypofunction: Status: Acute Code(s): E27.40 - Unspecified adrenocortical insufficiency Greater than 50% of the session was spent on counseling and/or coordination of care
--- NOTE | 2020-08-28 17:22 | PC.NURSE ---
0700 , pt refusing care ,repositioning, breakfast , refused to take medicine pt saying inappropriate comments to staff , this rn re-educated pt that behavior is not acceptable. 0930 pt more cooperative , asking for breakfast and meds . 1700 , pt refusing to eat dinner , pt refusing to take medications , this rn offered pt other choices for dinner , pt told this rn to leave the room . will cont to monitor
--- NOTE | 2020-08-28 21:20 | PC.NURSE ---
Pt refused assessment from nurse. Patient stated leave me alone. Get out Pt also refused meds. Two attempts were made. Pt is alert, talkative and shows no signs of distress.
[2020-08-28 23:43] VITALS: BP 125/62; PULSE 50; RESP 18; TEMP 35.8; O2SAT 99
[2020-08-29] MEDS: 0.9 % Sodium Chloride Flush 3 ML SYRINGE IVFLUSH ×4 (00:56→20:17)
[2020-08-29] MEDS: Levothyroxine Sodium 50 MCG TABLET PO (05:52)
[2020-08-29] MEDS: Amoxicillin/Potassium Clav 875 MG TABLET PO (05:52)
[2020-08-29] MEDS: Levothyroxine Sodium 25 MCG TABLET 12.5 MCG PO (05:52)
[2020-08-29 06:46] LABS: Hematocrit 32.3 % (42-52); Hemoglobin 10.7 g/dl (14.0-18.0); Mean Corpuscular HGB Conc 33.1 g/dl (31.0-36.0); Mean Corpuscular Hemoglobin 30.5 pg (27.0-33.0); Mean Platelet Volume 10.3 fL (9.4-12.4); Platelet Count 149 X10*3/uL (160-400); Red Blood Count 3.51 X10*6/uL (4.60-5.80); Red Cell Distribution Width 16.1 % (11.0-16.0); White Blood Count 6.8 X10*3/uL (4.8-10.8)
[2020-08-29 07:12] VITALS: BP 115/61; PULSE 58; RESP 18; TEMP 36.4; O2SAT 99
[2020-08-29] MEDS: predniSONE 10 MG TABLET 30 MG PO (08:10)
[2020-08-29 11:13] VITALS: BP 107/58; PULSE 63; RESP 18; TEMP 36.3; O2SAT 96
--- NOTE | 2020-08-29 14:57 | P.PNIM_ITS ---
Physical Exam Vital Signs: Vital Signs: Vital Signs Temp Pulse Resp BP Pulse Ox 08/29/20 11:13 97.3 F 63 18 107/58 L 96 08/29/20 07:12 97.5 F 58 18 115/61 99 08/28/20 23:43 96.5 F L 50 18 125/62 99 08/28/20 14:58 97.3 F 62 109/53 L 95 Body Mass Index 34.6 Objective Data Current Medications Generic Name Dose Route Start Last Admin Trade Name Fabien PRN Reason Stop Dose Admin Levothyroxine Sodium 50 mcg 08/26/20 06:00 08/29/20 05:52 Levothyroxine Sodium 50 Mcg Tablet PO 50 mcg DAILY@0600 EDUARDO Administration Levothyroxine Sodium 12.5 mcg 08/26/20 06:00 08/29/20 05:52 Levothyroxine Sodium 25 Mcg Tablet PO 12.5 mcg DAILY@0600 [facility] Administration Prednisone 30 mg 08/25/20 15:30 08/29/20 08:10 Prednisone 10 Mg Tablet PO 30 mg DAILY [facility] Administration Quetiapine Fumarate 12.5 mg 08/29/20 21:00 Quetiapine Fumarate 25 Mg Tablet PO BEDTIME [facility] Sodium Chloride 3 ml 08/24/20 08:00 08/29/20 08:11 0.9 % Sodium Chloride Flush 3 Ml Syringe IVFLUSH 3 ml QSHIFT [facility] Administration Labs CBC & Chem 7: 08/29/20 06:20 08/28/20 08:44 Microbiology Microbiology Results: Microbiology 08/23/20 19:55 Blood - Venous Blood Culture - Final No growth after 5 days. 08/23/20 19:41 Blood - Venous Blood Culture - Final No growth after 5 days. 08/23/20 20:49 Urine Catheterized - Henley Catheter Urine Culture - Final Enterococcus faecalis
--- NOTE | 2020-08-29 15:03 | HO.PM.IMPN ---
Subjective Subjective Date of Service: 08/29/20 Interval History: patient admitted with altered mental status, hypothermia, hypertension and bradycardia initially admitted to ICU required pressor support and subsequently transferred to floor Today patient awake, alert and asking to be discharged home is refusing medications and care by nursing staff, patient complaining of back pain at site of decubitus ulcer. Review of Systems General no headache no dizziness no fever chills. CVS no chest pain, no palpitation. Respiratory no cough no sputum production no respiratory distress. 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 Neck is supple no JVD. CVS regular rate rhythm, Respiratory lungs clear to auscultation, no respiratory distress, no wheeze, no rhonchi. Gastrointestinal abdomen soft, nontender, bowel sounds audible, no no guarding , no rigidity. Extremities no clubbing cyanosis or edema. Neuro nonfocal patient moving all 4 extremity speech clear. Skin left upper buttock arm abrasion and Crystal intertrigo in groin Objective Data Current Medications Generic Name Dose Route Start Last Admin Trade Name Freq PRN Reason Stop Dose Admin Levothyroxine Sodium 50 mcg 08/26/20 06:00 08/29/20 05:52 Levothyroxine Sodium 50 Mcg Tablet PO 50 mcg DAILY@0600 EDUARDO Administration Levothyroxine Sodium 12.5 mcg 08/26/20 06:00 08/29/20 05:52 Levothyroxine Sodium 25 Mcg Tablet PO 12.5 mcg DAILY@0600 EDUARDO Administration Prednisone 30 mg 08/25/20 15:30 08/29/20 08:10 Prednisone 10 Mg Tablet PO 30 mg DAILY EDUARDO Administration Quetiapine Fumarate 12.5 mg 08/29/20 21:00 Quetiapine Fumarate 25 Mg Tablet PO BEDTIME EDUARDO Sodium Chloride 3 ml 08/24/20 08:00 08/29/20 08:11 0.9 % Sodium Chloride Flush 3 Ml Syringe IVFLUSH 3 ml QSHIFT EDUARDO Administration Labs CBC & Chem 7: 10/15/20 06:20 08/28/20 08:44 Microbiology Microbiology Results: Microbiology 08/23/20 19:55 Blood - Venous Blood Culture - Final No growth after 5 days. 08/23/20 19:41 Blood - Venous Blood Culture - Final No growth after 5 days. 08/23/20 20:49 Urine Catheterized - Henley Catheter Urine Culture - Final Enterococcus faecalis Assessment and Plan (1) VRE (vancomycin resistant enterococcus) culture positive: Status: Acute (2) Hyperkalemia: Status: Acute (3) Adrenal hypofunction: Status: Acute (4) Tegretol toxicity: Status: Acute (5) Pancytopenia: Problem details: as per labs Status: Acute (6) Hypothyroidism: Status: Chronic Assessment and Plan: 1. acute toxic metabolic encephalopathy/ hypothermia/ hypotension/ bradycardia: initially admitted to ICU, required pressor support, likely above symptoms related to Tegretol toxicity, Adrenal insufficiency , although cortisol level within normal range, relatively low thyroid level. initially was on Decadron which has been changed to prednisone, will taper prednisone dose 5 mg q 3 days as per Nephro, detention needs to arrange for outpatient Endocrinology follow-up in next 1-2 weeks blood cultures negative, ua neg,urine cultures growing Gram-positive cocci-enterococcus faecalis initially treated with antibiotics now discontinued since Dr. Rodriguez feels it is colonization. respiratory panel negative patient seems to be at baseline. 2. Pancytopenia : thought to be related Tegretol, seems improving, follow CBC . 3.? leg ulcer on the left side due to cellulitis versus pyoderma gangrenosum,RF neg, flor pending,protease and myeloperoxidase not detected Patient seen by Dr. Rodriguez she feels ulcers related to venous stasis versus aberration she recommend to treat venous stasis and to check skin biopsy only if it is not healing in 1 month 5. dvt hx : of warfarin as per patient's outpatient provider, venous duplex in the hospital is negative. 6.: Electrolyte abnormalities : hyperkalemia resolved and hyponatremia improving question of relative adrenal insufficiency, cortisol level 10 which is within the normal range Nephro evaluation noted - recommended to taper steroids 7.Mood disorder: He is off Tegretol and is behavior is off, case discussed with Narcisa Beltran she recommends to start Seroquel 12.5 b.i.d. as needed but detention cannot accept patient on as needed medications therefore will schedule Seroquel 12.5 mg at bedtime scheduled if patient behaviors stabilizes he will be discharged home tomorrow morning
--- NOTE | 2020-08-29 15:09 | MHC.CM.PN ---
nurse customer care voice consultant note electronic medical record reviewed along with case discussed with staff nurse and hospitllist, patient is often times refusing his medications and nursing assessments and prcedures, psychiatry has seen and evaluated him and recomended serooooooquel prn bid, i spke with the program advisor duane tripp and she reported that he can be diffixcult enought on his psych meds and they would not be able to take him back with prn medication orders as there are no nursing staff 24 coverage in the [facility] to make decision of whethere he needs to medication or not. i asked if he could come with seroquel 12.5 mg scheduled at bedtime she reported that he could , but she woud want him t get the first dose here as it is late in the day for all his paperwork to be completed and pharmacy t deliver any medications and extra staffing availability , so discharge will be planned for tomorrow am , this was reportee to the staff nurse , russell and also notified toma carbone in psychiatry that [facility] is [facility] and spoke with his zenon care proxy ilya claire [phone] she willbe in later this afternoon to see him and will call back around 9pm to the nurses station and talk with patient to encourage him to take his new seroquel in order for him to be able to go [facility] discharge planned for tomorrow
[2020-08-29 15:59] VITALS: BP 109/58; PULSE 63; RESP 16; TEMP 36.3; O2SAT 98
[2020-08-29 20:00] VITALS: BP 127/78; PULSE 70; TEMP 36.4; O2SAT 96
[2020-08-29] MEDS: QUEtiapine Fumarate 25 MG TABLET 12.5 MG PO (20:15)
[2020-08-30 03:57] VITALS: BP 135/66; PULSE 57; RESP 18; TEMP 36.9; O2SAT 99
[2020-08-30] MEDS: Levothyroxine Sodium 50 MCG TABLET PO (05:18)
[2020-08-30] MEDS: Levothyroxine Sodium 25 MCG TABLET 12.5 MCG PO (05:18)
[2020-08-30 08:00] VITALS: BP 105/60; PULSE 67; RESP 19; TEMP 36.4; O2SAT 98; BMI 33.7
[2020-08-30 08:28] LABS: Glucose, Whole Blood 120 mg/dL (60-115)
--- NOTE | 2020-08-30 09:15 | MHC.CM.PN ---
nurse hiv/aids care nurse note electronic medical record reviewed along with case discussed with staff nurse and the hospitliat, also spoke with the drupal programmer duane mascorro, she is requesting we send discharge instructions paperwork along with discharge summary with patient when discharged, t/c eileen patients sister dakotah to inofrm her of the discharge and time of transdprt discharge plan return back to the skilled nursing duane mascorro drupal programmer will; be there waiting for him transportstion [facility] pcp dr mon skilled nursing b2b sales representative to call for post hospitla follow up dr richter psychiatrist with [facility] follow up
[2020-08-30] MEDS: 0.9 % Sodium Chloride Flush 3 ML SYRINGE IVFLUSH (10:01)
[2020-08-30] MEDS: predniSONE 20 MG TABLET PO (10:09)
--- NOTE | 2020-08-30 10:28 | MHC.CM.PN ---
NURSE WEBSITE PROJECT MANAGER NOTE REFERRAL BACK TO WOUND CARE CLINIC HERE AT [facility] NOTIFIED ON 08 29 20 OF THE DISCHARGE V N 08/30/20 THEY WILL CALL [facility] AND MAKE ARRNGEMENTS FOR FOLLOW UP
--- NOTE | 2020-08-30 11:03 | PM.DS ---
DS: Providers Provider Date of admission: 08/24/20 00:55 Primary care physician: Unknown Physician Consults: 08/24/20 06:26 Consult to Wound Care Provider Routine Consulting Provider: Nathan French Reason for consultation: 7x5 cm. necrotic leg lesion and sepsis Has provider been notified: No 08/26/20 08:16 Consult to Infectious Diseases Routine Consulting Provider: Juliana Rodriguez Reason for consultation: LEFT LEG WOUND ? infection vs pyoderma Has provider been notified: No 08/26/20 08:17 Consult to Nephrology Routine Consulting Provider: Surya Adams Reason for consultation: hypothermia/hypotenion -hyponatremia /hyperkalemia -?Adrenal insuff. Has provider been notified: No 08/28/20 12:23 Consult to Psychiatry Routine Consulting Provider: Psych Covering Reason for consultation: mood disorder, off Tegretol because of pancytopenia. DS: Diagnosis Discharge Diagnosis (1) VRE (vancomycin resistant enterococcus) culture positive: Status: Acute (2) Hyperkalemia: Status: Acute (3) Adrenal hypofunction: Status: Acute (4) Tegretol toxicity: Status: Acute (5) Pancytopenia: Status: Acute Problem details: as per labs (6) Hypothyroidism: Status: Chronic DS: Summary Hospital Course Hospital Course: 64-year-old male with a past medical history of hypertension, hypothyroid, intellectual disability, DVT was on warfarin unclear if he still is, diabetes type 2, anemia, morbid obesity and multiple falls who lives in a assisted. He was BIBA to the ED because the assisted said he was having 3-4 days of slurred speech, low heart rate in the 40s and 50s and lethargy. the EMS crew knows the patient well and they said he is speaking in at his baseline. The patient stated he felt well and normal. In the ED, patient's vital signs were notable for hypothermia at 91.2 degrees F, heart rate of 44 and a BP of 87/21. Patient's labs were notable for low WBC 3.8, low RBC 3.04, low H&H 9.2 & 28 respectively. Platelets were low at 85. PT/INR were wnl but aPTT was elevated at 51.1. chemistries were WNL with the exception of potassium slightly elevated at 5.4 and BUN slightly elevated at 17. BNP was elevated at 218 and TSH was WNL at 3.24. urinalysis was negative for infection. Head CT was negative for anything acute and CXR showed interstitial edema (this was done after pt rec'd 1.5L of IVF). While in the ED, the patient received 1.5 L of fluids as per sepsis protocol, he was also placed on a Ramana Hugger. A TLC was placed and pt is on a Levophed drip. His temperature, BP and HR have normalized. He was also given a dose of Zosyn, source of infection is unknown yet. Pmx: Anemia Diabetes type 2, controlled DVT (deep venous thrombosis) Hypertension Hypothyroidism Morbid obesity Venous insufficiency of both lower extremities. Hospital course 1. acute toxic metabolic encephalopathy/ hypothermia/ hypotension/ bradycardia: initially admitted to ICU, required pressor support, likely above symptoms related to Tegretol toxicity, Adrenal insufficiency , although cortisol level within normal range, relatively low thyroid level. initially was on Decadron which has been changed to prednisone, will taper prednisone dose 5 mg q 3 days as per Nephro, assisted to arrange for outpatient Endocrinology follow-up in next 1-2 weeks blood cultures negative, ua neg,urine cultures growing Gram-positive cocci-enterococcus faecalis initially treated with antibiotics now discontinued since Dr. Rodriguez feels it is colonization. respiratory panel negative. will DC Tegretol, DC Lasix patient seems to be at baseline. 2. Pancytopenia : thought to be related Tegretol, seems improving, follow CBC . 3.? leg ulcer on the left side gradually improving no evidence of cellulitis, less likely pyoderma gangrenosum,RF neg, flor neg,protease and myeloperoxidase not detected, Patient seen by Dr. Rodriguez she feels ulcers related to venous stasis she recommend to treat venous stasis and to check skin biopsy only if it is not healing in 1 month. Continue Xeroform dressing with gauze daily and follow-up with wound clinic. 5. dvt hx : off warfarin as per patient's outpatient provider, venous duplex in the hospital is negative. 6.: Electrolyte abnormalities : hyperkalemia resolved and hyponatremia improved. question of relative adrenal insufficiency, cortisol level 10 which is within the normal range Nephro recommended to taper steroids, outpatient follow-up with endocrinology 7.Mood disorder: He is off Tegretol , case discussed with Narcisa Beltran NP, from psyche she recommends Seroquel 12.5 bedtime patient tolerated medication well this morning has no behavioral or anger issues continue Seroquel 12.5 mg at bedtime Time Spent with Patient Time attestation: Total time spent providing and/or coordinating discharge services: Physical Exam Vital Signs: Vital Signs: Vital Signs Temp Pulse Resp BP Pulse Ox 08/30/20 08:00 97.6 F 67 19 105/60 98 08/30/20 03:57 98.4 F 57 18 135/66 99 08/29/20 20:00 97.5 F 70 127/78 96 08/29/20 15:59 97.3 F 63 16 109/58 L 98 08/29/20 11:13 97.3 F 63 18 107/58 L 96 Body Mass Index 34.6 General patient resting comfortably in no acute distress. Neck is supple no JVD. CVS regular rate rhythm, Respiratory lungs clear to auscultation, no respiratory distress, no wheeze, no rhonchi. Gastrointestinal abdomen soft, nontender, bowel sounds audible, no no guarding , no rigidity. Extremities no clubbing, cyanosis or edema. Neuro nonfocal patient moving all 4 extremity speech clear. Skin left upper buttock healing abrasion and Crystal intertrigo in groin left leg lateral border above the ankle joint superficial ulceration, no drainage. coccyx stage II decubiti ulcers pink foam dressing in place. DS: Data Data Completed and Pending Labs on day of discharge: Labs from last 24 hours 08/30/20 08:18 POC Glucose 120 H Discharge Plan Discharge Patient Disposition: Home, Self-Care Referrals: assisted [Other] (duane dior children's program coordinator notified) [facility] [Other] (they will call duane mascorro children's program coordinator to schedule follow up appointment [phone]) Jason Barillas MD [Physician] - Physician,Unknown [Primary Care Provider] - Discharge Medications: New quetiapine 25 mg Tablet 12.5 mg PO BEDTIME Qty: 30 RF: 0 levothyroxine 25 mcg Tablet 12.5 mcg PO DAILY@0600 Qty: 30 RF: 0 prednisone 5 mg Tablet See Taper mg PO DAILY Qty: 45 RF: 0 Continued levothyroxine 50 mcg tablet 50 mcg PO DAILY RF: 0 multivitamin Tablet 1 tab PO DAILY RF: 0 nystatin 100,000 unit/gram powder 1 applic topical BID RF: 0 vitamin B complex Capsule 1 cap PO QAM RF: 0 aspirin 81 mg Tablet,Delayed Release (Dr/Ec) 81 mg PO DAILY RF: 0 terbinafine HCl 1 % Cream 1 applic TOPICAL BEDTIME RF: 0 acetaminophen 650 mg Tablet 650 mg PO Q4H PRN (Reason: Pain (Scale Score 1-3)) RF: 0 clotrimazole 1 % Cream 1 applic TOPICAL BID PRN (Reason: Rash) RF: 0 zinc oxide Cream 1 applic TOPICAL BID PRN (Reason: Rash) RF: 0 ammonium lactate 12 % Cream 1 applic TOPICAL BID RF: 0 Discontinued furosemide 40 mg Tablet 40 mg MOWEFR@0800 RF: 0 carbamazepine 400 mg tablet extended release 12 hr 400 mg PO BID RF: 0 Discharge Orders: Discharge Order (Routine); Ordered 08/30/20 Ordered By: Brissa Raymundo Activity on Discharge: As tolerated Visit Report Forms: Patient Portal Discharge page Care Plan Goals: As per discharge plan Health Concerns: as per discharge plan Plan of Treatment: close outpatient follow-up with PCP and follow-up with endocrinology for concern for adrenal insufficiency.
== END 2020-08-30 13:30 | disposition home or self-care (01) | DRG 92 ==
LOC: HO.ED 08-24 00:55 → HO.ICU 08-24 01:16 → HO.S3 08-25 15:37
PROVIDERS: Internal Medicine; Physician Assistant; Admitting Provider Internal Medicine Cardiovascular Disease; Emergency Provider Emergency Medicine; Visit Provider Hospitalist
DX: G92 Toxic encephalopathy (principal); L03.116 Cellulitis of left lower limb; D61.818 Other pancytopenia; I87.312 Chronic venous hypertension (idiopathic) with ulcer of left lower extremity; E66.2 Morbid (severe) obesity with alveolar hypoventilation; E22.2 Syndrome of inappropriate secretion of antidiuretic hormone; L97.821 Non-pressure chronic ulcer of other part of left lower leg limited to breakdown of skin; E27.40 Unspecified adrenocortical insufficiency; T42.1X5A Adverse effect of iminostilbenes, initial encounter; E03.9 Hypothyroidism, unspecified; Z68.34 Body mass index [BMI] 34.0-34.9, adult; F79 Unspecified intellectual disabilities; Y92.9 Unspecified place or not applicable; Z20.828 Contact with and (suspected) exposure to other viral communicable diseases; Z86.718 Personal history of other venous thrombosis and embolism; Z79.82 Long term (current) use of aspirin; Z79.890 Hormone replacement therapy; Z79.899 Other long term (current) drug therapy
CPT/HCPCS: 36415; 70450; 71045; 71250; 80048; 80076; 81003; 82040; 82310; 82533; 82803; 82947; 83605; 83735; 83880; 84100; 84145; 84439; 84443; 84481; 85025; 85027; 85610; 85652; 85730; 86021; 86038; 86039; 86431; 87040; 87086; 87088; 87186; 87631; 87633; 87635; 93005; 93970; 96361; 96365; 96367; 99225; 99285; 99291; 99292; C1758; J1650; J3370

== ENCOUNTER → 2020-09-03 13:26 | Outpatient (BNVA) | payer MEDICARE, MEDICAID, SELFPAY | PROVIDERS: PCP Internal Medicine; Referring Provider Internal Medicine; Visit Provider Urology | DX: Z76.89 Persons encountering health services in other specified circumstances (principal) | CPT/HCPCS: 99212 ==

== ENCOUNTER → 2020-09-19 10:53 | Outpatient (BNVA) | payer MEDICARE, MEDICAID, SELFPAY | PROVIDERS: PCP Internal Medicine; Visit Provider Urology | DX: R33.9 Retention of urine, unspecified (principal) | CPT/HCPCS: 99212 ==

== ENCOUNTER → 2020-10-03 10:02 | Outpatient (BNVA) | payer MEDICARE, MEDICAID, SELFPAY | PROVIDERS: Visit Provider Urology | DX: N40.1 Benign prostatic hyperplasia with lower urinary tract symptoms (principal); N13.8 Other obstructive and reflux uropathy; R39.12 Poor urinary stream; R33.8 Other retention of urine | CPT/HCPCS: 51798; 99212 ==

== ENCOUNTER 2020-10-23 23:36 | Inpatient (IN) | payer MEDICARE, MEDICAID, SELFPAY ==
[2020-10-23 23:43] VITALS: BP 90/60; PULSE 56; RESP 22; TEMP 28.8; O2SAT 96; BMI 32.3
--- NOTE | 2020-10-23 23:50 | PC.NURSE ---
Patient is a developmentally delay individual who comes in tonight from a care home with complaints of weakness. patient speaks and is able to answer some questions but is very hard to understand. Per EMS care home staff reported a number of open wounds in his feet. His right heel has a necrotic area. 3 plus pitting edema bilaterally in legs. Patient was incontinent of urine and the urine had a foul smell. Blood pressure was in the 80's systolic upon arrival and unable to obtain an oral or rectal temperature as they were not reading. Patient was extremely cold to touch. Provider informed and normal saline infusion started. Patient has 18 guage needle in left arm above wrist. Wallace catheter placed and urine was thick and dark with fould smell. The wallace that was placed was temperature sensing and the patient's initial temp was 84. Bear hugger blanket was started on patient. correction contacted to see if they could provide a staff member to sit with patient and provide any information that we needed to care for patient. Patient's neuro's were intact and patient following directions.
[2020-10-24] VITALS (23 sets, daily range): BP systolic 77–116; BP diastolic 30–56; PULSE 42–109; RESP 12–34; TEMP 28.8–36.9; O2SAT 93–100; BMI 36.3; BMI 36.0
--- NOTE | 2020-10-24 00:47 | ECG_ITS ---
Test Reason : AMS Blood Pressure : / mmHG Vent. Rate : 041 BPM Atrial Rate : 039 BPM P-R Int : 000 ms QRS Dur : 130 ms QT Int : 508 ms P-R-T Axes : 000 -06 033 degrees QTc Int : 419 ms Artifact in tracing Possibly sinus bradcardia but very subtle P waves vs junctional/ventricular escape Abnormal ECG When compared with ECG of 23-AUG-2020 19:25, possible rhythm change Referred By: Vlad Mena Electronically Signed By:OC BREWER
--- NOTE | 2020-10-24 01:04 | CT_ITS ---
EXAMINATION: CT HEAD WITHOUT CONTRAST CLINICAL INFORMATION: Altered mental status COMPARISON: 02/26/2020 TECHNIQUE: Contiguous axial imaging was performed from the skull base to vertex without intravenous administration of contrast. This CT examination was performed using dose optimization techniques as appropriate, variously including the following: *Automated exposure control *Adjustment of mA and/or kV according to patient size (this includes techniques or standardized protocols for targeted exams where dose is matched to indication/reason for exam; i.e. extremities or head) *Use of iterative reconstruction technique DLP: 1082 mGy-cm FINDINGS: There is no evidence of acute intracranial hemorrhage or territorial infarction. No abnormal mass effect or midline shift is seen. Uribe to white matter differentiation is well preserved. No extra-axial fluid collections are identified. The ventricles are normal in size. There is no abnormal attenuation within the brain parenchyma. The osseous structures and soft tissues are normal. Hyperostosis frontalis. Mild mucosal thickening within the right frontal sinus and within the right anterior ethmoid air cells. CT/CT head/brain wo con IMPRESSION: No acute intracranial pathology.
[2020-10-24] MEDS: 0.9 % Sodium Chloride 1,000 ML 999 ML IVCONT ×4 (01:46→02:53)
[2020-10-24 01:51] LABS: Glucose, Whole Blood 121 mg/dL (60-115)
[2020-10-24 01:53] LABS: Eosinophils Absolute Auto 0.1 X10*3/uL (0.0-0.4); Eosinophils Percent Auto 1.9 % (0-4); Hematocrit 28.5 % (42-52); Lymphocytes Absolute Auto 0.4 X10*3/uL (1.2-4.9); Lymphocytes Percent Auto 13.3 % (20-40); MANUAL DIFF FLAG SCAN; Mean Corpuscular HGB Conc 31.6 g/dl (31.0-36.0); Mean Corpuscular Volume 91.9 fL (80-98); Mean Platelet Volume 13.2 fL (9.4-12.4); Monocytes Absolute Auto 0.2 X10*3/uL (0.1-1.2); Monocytes Percent Auto 6.1 % (2-11); NRBC Pct Auto 0.8 /100WBC (0.0-0.2); Neutrophils Absolute Auto 2.1 X10*3/uL (2.0-8.3); Neutrophils Percent Auto 78.7 % (45-73); PLT ABN DIST 1; Red Cell Distribution Width 17.2 % (11.0-16.0); SCAN SMEAR FLAG 1; White Blood Count 2.6 X10*3/uL (4.8-10.8)
[2020-10-24 01:56] LABS: Glucose Urine UA NEG (NEG); Leukocyte Esterase Urine 3+ (NEG); Nitrite Urine POS (NEG); Specific Gravity - Urine 1.025 (1.005-1.025); Urine Blood 3+ (NEG); Urine Ketones NEG (NEG); Urine Protein 2+ MG/DL (NEG-TRACE)
[2020-10-24 01:57] LABS: Appearance Urine CLOUDY; Color Urine ORANGE
[2020-10-24 01:59] LABS: INTERNATIONAL NORM RATIO 1.1 (0.9-1.1); Prothrombin Time 12.5 SEC (10.8-13.0)
[2020-10-24] MEDS: Piperacillin Sodium/Tazobactam 3.375 GM in 0.9 % Sodium Chloride 50 ML IV ×3 (02:00→20:11)
--- NOTE | 2020-10-24 02:15 | ED.WEAKNESS ---
HPI - Weakness General Chief complaint: Weakness Stated complaint: altered mental Time Seen by Provider: 10/24/20 00:36 Source: RN notes reviewed Mode of arrival: EMS Limitations: altered mental status History of Present Illness HPI Narrative: Patient presents to ED for altered mental status. As per staff member from [facility] patient has been altered since 09:00 yesterday morning. They state at baseline patient is verbal and takes air of himself but since yesterday morning he has been altered. Environmental Journalist of [facility] states patient has a history of multiple episodes of sepsis which leads to altered mental status. Related Data Home Medications Medication Instructions Recorded Confirmed levothyroxine 50 mcg PO DAILY 08/23/20 10/03/20 multivitamin 1 tab PO DAILY 08/23/20 10/03/20 nystatin 1 applic TOPICAL BID 08/23/20 10/03/20 vitamin B complex 1 cap PO QAM 08/23/20 10/03/20 acetaminophen 650 mg PO Q4H PRN 08/24/20 10/03/20 aspirin 81 mg PO DAILY 08/24/20 10/03/20 clotrimazole 1 applic TOPICAL BID PRN 08/24/20 10/03/20 terbinafine HCl 1 applic TOPICAL BEDTIME 08/24/20 10/03/20 zinc oxide 1 applic TOPICAL BID PRN 08/24/20 10/03/20 ammonium lactate 1 applic TOPICAL BID 08/30/20 10/03/20 Previous Rx's Medication Instructions Recorded levothyroxine 12.5 mcg PO DAILY@0600 #30 tab 08/30/20 prednisone See Taper PO DAILY #45 tab 08/30/20 quetiapine 12.5 mg PO BEDTIME #30 tab 08/30/20 finasteride 5 mg tablet 5 mg PO DAILY 90 Days #90 tab 09/19/20 tamsulosin 0.4 mg capsule 0.4 mg PO BEDTIME 90 Days #90 cap 09/19/20 finasteride 5 mg tablet 5 mg PO DAILY 90 Days #90 tab 10/03/20 Allergies Allergy/AdvReac Type Severity Reaction Status Date / Time No Known Allergies Allergy Verified 08/24/20 07:57 [No Known Allergies*] Review of Systems Review of Systems: Yes Unobtainable due to mental status ( Altered mental status) [facility] Past Medical History Medical History Adrenal hypofunction Anemia Diabetes type 2, controlled DVT (deep venous thrombosis) Hypertension Hypothyroidism Morbid obesity SIADH (syndrome of inappropriate ADH production) Tegretol toxicity Venous insufficiency of both lower extremities Social History Social History Alcohol intake: unknown Smoking Status: Unknown if ever smoked Use of substances other than those prescribed or required for medical reasons: Unknown Advance Directives: Yes Advance Directives on File: Yes Advance Directives Date on File: 08/16/20 service: No Current occupational status: disabled Physical Exam Vital Signs: Vital Signs: Last Vital Signs Temp 87.1 F L 10/24/20 03:20 Pulse 50 10/24/20 03:20 Resp 21 H 10/24/20 03:20 BP 80/40 L 10/24/20 03:20 Pulse Ox 99 10/24/20 03:20 Body Mass Index 32.3 Const: Other: altered mental status HENMT: Head: Yes normal to inspection and Yes No palpable skull fracture present Eyes: General: appearance normal, both eyes and all related structures Neck: Neck: Yes normal visual inspection, Yes full ROM, Yes no lymphadenopathy, Yes no meningeal signs, Yes trachea midline, Yes supple and No tender Chest: Chest palpation & inspection: normal inspection of the chest and normal palpation of entire chest wall Resp: Effort & Inspection: normal respiratory effort and able to speak in complete sentences Auscultation: clear to auscultation bilaterally Cardio: Jugular venous distension: no JVD Heart sounds: S1 normal heart sound present and S2 normal heart sound present GI: Inspection: Yes normal to inspection and Yes abdominal wall ecchymosis : General: No CVA tenderness and Yes no CVA tenderness Back/Spine/Pelvis: Back: no CVA tenderness, No CVA tenderness and No back tenderness Skin: Other: right lower extremity positive for chronic redness and swelling of the legs and 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 Left lower extremity positive for chronic redness and swelling and negative for any ulcers. Neuro: Other: Negative for any facial droop. Patient is altered mental status. Patient does states his name. negative for any slurred speech. General: no meningeal signs Extrem: Other: Bilateral chronic swelling and redness of extremities. Right foot positive for gangrene ulcer on calcaneal posterior area. Psych: Other: Altered mental status Course Course Course Narrative: patient is severely hypothermic and hypotensive. Clinical picture is sepsis. Clinical picture does not indicate stroke. Patient will have septic lab workup and given septic fluids. will do PET scan of patient to evaluate for source of infection. patient also have COVID swab and urinalysis. Reevaluation(s) Reevaluation #1: Patient started on vanc and Zosyn due to possibility of infection coming from right heel. Lactic positive. Patient placed on BARRE huggers due to tempature. septic fluids were ordered but nurse could not see them on the computer, so for bags of individual normal saline were ordered. patient also bradycardic Time: 02:20 Reevaluation #2: patient's urine came back positive for UTI. Time: 02:55 Reevaluation #3: case presented to ICU attending Dr. johanny Elizabeth who accepted patient. Patient is still hypotensive. Patient still hypothermic. PA Lisa of ICU will come down and place central line. patient will still havine imaging of lower extremities. Time: 03:49 MDM - Weakness Lab Data Result diagrams: 10/24/20 01:05 10/24/20 01:06 Labs: Lab Results 10/24/20 10/24/20 10/24/20 Range/Units 01:05 01:05 01:05 WBC 2.6 L (4.8-10.8) X10*3/uL RBC 3.10 L (4.60-5.80) X10*6/uL Hgb 9.0 L (14.0-18.0) g/dl Hct 28.5 L (42-52) % MCV 91.9 (80-98) fL MCH 29.0 (27.0-33.0) pg MCHC 31.6 (31.0-36.0) g/dl RDW 17.2 H (11.0-16.0) % Plt Count 35 L D (160-400) X10*3/uL MPV 13.2 H (9.4-12.4) fL Immature Gran % (Auto) 0.0 (0.0-0.4) % Neut % (Auto) 78.7 H (45-73) % Lymph % (Auto) 13.3 L (20-40) % Trimble % (Auto) 6.1 (2-11) % Eos % (Auto) 1.9 (0-4) % Baso % (Auto) 0.0 (0-2) % Lymph # (Auto) 0.4 L (1.2-4.9) X10*3/uL Trimble # (Auto) 0.2 (0.1-1.2) X10*3/uL Eos # (Auto) 0.1 (0.0-0.4) X10*3/uL Baso # (Auto) 0.0 (0.0-0.2) X10*3/uL Abs Immat Gran (auto) 0.00 (0.00-0.03) X10*3/uL Absolute Neuts (auto) 2.1 (2.0-8.3) X10*3/uL Absolute Nucleated RBC 0.020 H (0.0-0.012) X10*3/uL Nucleated RBC % (auto) 0.8 H (0.0-0.2) /100WBC Smear Tech's Comments VERIFIED ESR (0-15) MM/HR PT 12.5 (10.8-13.0) SEC INR 1.1 (0.9-1.1) APTT 64.6 H* (24.1-38.0) SEC Sodium (135-145) mmol/L Potassium (3.3-5.1) mmol/l Chloride (96-108) mmol/L Carbon Dioxide (22-29) mmol/L Anion Gap (12-20) BUN (9-16) mg/dL Creatinine (0.5-1.4) mg/dL Estim Creat Clear Calc Estimated GFR POC Glucose (60-115) mg/dL Random Glucose (60-115) mg/dL Lactic Acid 0.6 (0.5-2.0) mmol/L Calcium (8.4-10.2) mg/dL Total Bilirubin (0.0-1.0) mg/dL AST (5-37) U/L ALT (0-40) U/L Alkaline Phosphatase (39-117) U/L C-Reactive Protein (< or = 0.50) mg/dL B-Natriuretic Peptide (<100) pg/mL Total Protein (6.5-8.0) g/dL Albumin (3.5-5.0) g/dL TSH (0.32-4.0) mIU/mL Urine Color Urine Appearance Urine pH (5.0-8.0) Ur Specific Dolom[place] (1.005-1.025) Urine Protein (NEG-TRACE) MG/DL Urine Glucose (UA) (NEG) MG/DL Urine Ketones (NEG) MG/DL Urine Blood (NEG) Urine Nitrite (NEG) Ur Leukocyte Esterase (NEG) Urine RBC (0) /HPF Urine WBC (0-4) /HPF Ur Squamous Epith Cells /LPF Urine Bacteria /LPF 10/24/20 10/24/20 10/24/20 Range/Units 01:06 01:06 01:10 WBC (4.8-10.8) X10*3/uL RBC (4.60-5.80) X10*6/uL Hgb (14.0-18.0) g/dl Hct (42-52) % MCV (80-98) fL MCH (27.0-33.0) pg MCHC (31.0-36.0) g/dl RDW (11.0-16.0) % Plt Count (160-400) X10*3/uL MPV (9.4-12.4) fL Immature Gran % (Auto) (0.0-0.4) % Neut % (Auto) (45-73) % Lymph % (Auto) (20-40) % Trimble % (Auto) (2-11) % Eos % (Auto) (0-4) % Baso % (Auto) (0-2) % Lymph # (Auto) (1.2-4.9) X10*3/uL Trimble # (Auto) (0.1-1.2) X10*3/uL Eos # (Auto) (0.0-0.4) X10*3/uL Baso # (Auto) (0.0-0.2) X10*3/uL Abs Immat Gran (auto) (0.00-0.03) X10*3/uL Absolute Neuts (auto) (2.0-8.3) X10*3/uL Absolute Nucleated RBC (0.0-0.012) X10*3/uL Nucleated RBC % (auto) (0.0-0.2) /100WBC Smear Tech's Comments ESR (0-15) MM/HR PT (10.8-13.0) SEC INR (0.9-1.1) APTT (24.1-38.0) SEC Sodium 140 (135-145) mmol/L Potassium 5.8 H D (3.3-5.1) mmol/l Chloride 113 H (96-108) mmol/L Carbon Dioxide 23 (22-29) mmol/L Anion Gap 10 L (12-20) BUN 23 H (9-16) mg/dL Creatinine 0.59 (0.5-1.4) mg/dL Estim Creat Clear Calc 149.4 Estimated GFR > 60 POC Glucose 121 H (60-115) mg/dL Random Glucose 115 (60-115) mg/dL Lactic Acid (0.5-2.0) mmol/L Calcium 9.6 (8.4-10.2) mg/dL Total Bilirubin 0.2 (0.0-1.0) mg/dL AST 48 H D (5-37) U/L ALT 48 H (0-40) U/L Alkaline Phosphatase 105 (39-117) U/L C-Reactive Protein 1.51 H (< or = 0.50) mg/dL B-Natriuretic Peptide 152 H (<100) pg/mL Total Protein 5.6 L (6.5-8.0) g/dL Albumin 3.1 L (3.5-5.0) g/dL TSH 3.09 (0.32-4.0) mIU/mL Urine Color Urine Appearance Urine pH (5.0-8.0) Ur Specific Dolom[place] (1.005-1.025) Urine Protein (NEG-TRACE) MG/DL Urine Glucose (UA) (NEG) MG/DL Urine Ketones (NEG) MG/DL Urine Blood (NEG) Urine Nitrite (NEG) Ur Leukocyte Esterase (NEG) Urine RBC (0) /HPF Urine WBC (0-4) /HPF Ur Squamous Epith Cells /LPF Urine Bacteria /LPF 10/24/20 10/24/20 Range/Units 01:46 02:55 WBC (4.8-10.8) X10*3/uL RBC (4.60-5.80) X10*6/uL Hgb (14.0-18.0) g/dl Hct (42-52) % MCV (80-98) fL MCH (27.0-33.0) pg MCHC (31.0-36.0) g/dl RDW (11.0-16.0) % Plt Count (160-400) X10*3/uL MPV (9.4-12.4) fL Immature Gran % (Auto) (0.0-0.4) % Neut % (Auto) (45-73) % Lymph % (Auto) (20-40) % Trimble % (Auto) (2-11) % Eos % (Auto) (0-4) % Baso % (Auto) (0-2) % Lymph # (Auto) (1.2-4.9) X10*3/uL Trimble # (Auto) (0.1-1.2) X10*3/uL Eos # (Auto) (0.0-0.4) X10*3/uL Baso # (Auto) (0.0-0.2) X10*3/uL Abs Immat Gran (auto) (0.00-0.03) X10*3/uL Absolute Neuts (auto) (2.0-8.3) X10*3/uL Absolute Nucleated RBC (0.0-0.012) X10*3/uL Nucleated RBC % (auto) (0.0-0.2) /100WBC Smear Tech's Comments ESR 21 H (0-15) MM/HR PT (10.8-13.0) SEC INR (0.9-1.1) APTT (24.1-38.0) SEC Sodium (135-145) mmol/L Potassium (3.3-5.1) mmol/l Chloride (96-108) mmol/L Carbon Dioxide (22-29) mmol/L Anion Gap (12-20) BUN (9-16) mg/dL Creatinine (0.5-1.4) mg/dL Estim Creat Clear Calc Estimated GFR POC Glucose (60-115) mg/dL Random Glucose (60-115) mg/dL Lactic Acid (0.5-2.0) mmol/L Calcium (8.4-10.2) mg/dL Total Bilirubin (0.0-1.0) mg/dL AST (5-37) U/L ALT (0-40) U/L Alkaline Phosphatase (39-117) U/L C-Reactive Protein (< or = 0.50) mg/dL B-Natriuretic Peptide (<100) pg/mL Total Protein (6.5-8.0) g/dL Albumin (3.5-5.0) g/dL TSH (0.32-4.0) mIU/mL Urine Color ORANGE Urine Appearance CLOUDY Urine pH 6.0 (5.0-8.0) Ur Specific [place] 1.025 (1.005-1.025) Urine Protein 2+ H (NEG-TRACE) MG/DL Urine Glucose (UA) NEG (NEG) MG/DL Urine Ketones NEG (NEG) MG/DL Urine Blood 3+ H (NEG) Urine Nitrite POS H (NEG) Ur Leukocyte Esterase 3+ H (NEG) Urine RBC 1-4 (0) /HPF Urine WBC TNTC H (0-4) /HPF Ur Squamous Epith Cells NONE /LPF Urine Bacteria 3+ /LPF ECG Data Interpretation: wide QRS rhythm. Ventricular rate 41. QRS duration 130. QTC 419. Critical Care Time Critical Care Time Critical Care Time: Yes Total Critical Care Time: 60 Attestation: patient is severely hypothermic and hypotensive. Patient immediately received BARRer Hugger and given IV septic fluid. Patient also was given vancomycin and Zosyn. Patient also had labs drawn. Patient presently having central line placed by physician assistant purchasing manager from ICU. Discharge Plan Discharge Clinical Impression: Sepsis, Acute UTI Patient Disposition: Admitted As Inpatient
[2020-10-24 02:23] LABS: Lactic Acid 0.6 mmol/L (0.5-2.0)
[2020-10-24 02:29] LABS: Alanine Aminotransferase 48 U/L (0-40); Albumin Level 3.1 g/dL (3.5-5.0); Alkaline Phosphatase 105 U/L (39-117); Anion Gap 10 (12-20); Aspartate Amino Transferase 48 U/L (5-37); Bilirubin Total 0.2 mg/dL (0.0-1.0); Blood Urea Nitrogen 23 mg/dL (9-16); C Reactive Protein 1.51 mg/dL (< or = 0.50); Calcium 9.6 mg/dL (8.4-10.2); Carbon Dioxide 23 mmol/L (22-29); Chloride 113 mmol/L (96-108); Creatinine Clr Calc Pharmacy 149.4; Estimated Glomerular Filt Rate > 60; Glucose Random 115 mg/dL (60-115); Potassium 5.8 mmol/l (3.3-5.1); Sodium 140 mmol/L (135-145); Total Protein 5.6 g/dL (6.5-8.0)
[2020-10-24 02:32] LABS: Platelet Count 35 X10*3/uL (160-400); SLIDE REVIEW VERIFIED
[2020-10-24 02:41] LABS: Bacteria Urine 3+ /LPF; WBC Urine TNTC /HPF (0-4)
[2020-10-24 02:51] LABS: B Type Natriuretic Peptide 152 pg/mL (<100)
[2020-10-24 02:51] LABS: Partial Thromboplastin Time 64.6 SEC (24.1-38.0)
[2020-10-24 03:30] LABS: TSH reflex Free T4 3.09 mIU/mL (0.32-4.0)
[2020-10-24 03:39] LABS: Erythrocyte Sedimentation Rate 21 MM/HR (0-15)
--- NOTE | 2020-10-24 03:56 | CT_ITS ---
EXAMINATION: IV CONTRAST ENHANCED CT OF THE CHEST, ABDOMEN, PELVIS AND LOWER EXTREMITIES. CLINICAL INFORMATION: Pneumonia. Septic emboli. Chronic redness and swelling. Question osteomyelitis. COMPARISON: Chest radiograph 01/07/2020, CT cervical spine 02/26/2020. Chest radiograph 12/25/2019. CT chest 08/24/2020. Pelvic radiograph 12/12/2017. TECHNIQUE: IV contrast-enhanced CT the chest, abdomen pelvis with multiple coronal and sagittal reformatted images processed on the technologist workstation under concurrent supervision. Intravenous contrast: Omnipaque 350 50 85 mL. DLP: 2991 mGy-cm FINDINGS: Lungs: Mild bibasilar dependent atelectasis of the lungs is noted. Images are suboptimal secondary to motion artifact. No focal pulmonary consolidation is identified. Pleura: No pleural effusions noted. Mediastinum: No mediastinal lymphadenopathy is identified. Heart appears globally enlarged. No pericardial thickening or pericardial fluid collections are identified. The visualized main and central pulmonary arteries demonstrate no intraluminal filling defects to suggest gross pulmonary emboli. CHEST WALL: No axillary lymphadenopathy. Mild bilateral gynecomastia. Liver: Images are suboptimal secondary to artifact related to suboptimal positioning of the upper extremities resulting in artifact within the abdomen pelvis. Liver demonstrates no focal parenchymal lesions and exhibits grossly normal contour and size. The previously noted 3.7 cm diameter rounded lesion within the right subphrenic space abutting the right lateral margin of the liver with dense peripheral calcification is unchanged compared with 08/24/2020. No edema is noted in the adjacent liver. This lesion deforms the adjacent capsular contour of the liver. Biliary system: Gallbladder appears contracted and a 1.2 cm diameter region of calcification which may represent a single or several closely approximated partially calcified gallstones is noted in the expected location of the neck of the gallbladder. Similar findings were present on the comparison exam of 08/24/2020. Additional punctate calcifications are noted in this region. Pancreas: Atrophic. Spleen: Normal size. Dense splenic artery calcifications. Adrenal glands: Normal. Kidneys: 2 rounded low density (0 Hounsfield unit) lesions consistent with simple cysts are noted within the right kidney, the largest measuring 2.8 cm in present in the lateral interpolar region. Bilaterally symmetric nephrographic enhancement is noted. Urinary bladder: Henley catheter in situ. Partially collapsed. Pelvic viscera: Benign-appearing prostate calcifications are noted. The prostate is grossly normal in size. No abnormalities of the seminal vesicles noted. Gastrointestinal system: No intestinal dilatation or mural thickening noted. No free intraperitoneal fluid or gas collections. The sigmoid and small bowel mesentery is are normal in appearance. Normal appearance of the superior mesenteric artery aside from nonocclusive ostial calcifications. The appendix is normal in appearance. Abdominal wall: Small bilateral fat-containing inguinal hernias are visualized. Chest, abdomen pelvis musculoskeletal: Partial visualization is made of marked osteophytosis associated with the left glenohumeral joint and prominent sclerosis of the visualized glenoid. Partial visualization is made of anterior plate and screw fixation and interbody bone graft material within the lower cervical spine. Mild multilevel anterior endplate osteophytosis is noted in the thoracic spine. Multilevel facet and endplate osteophytosis of the lumbar spine is noted. A prominent Schmorl's node deformity is noted along the superior aspect of L1. Prominent irregularity and irregular inward deformity of the superior endplate of L5 is noted. No adjacent gross paraspinous soft tissue inflammatory changes are visualized. Mild Schmorl's node deformities of the inferior endplate of L4 visualized. Findings are most pronounced along the anterior aspect of the L5 superior endplate where approximately 2 cm of endplate inward deformity is noted with subadjacent vertebral body sclerosis. CT lower extremities: Subcutaneous reticulation is present posterior to the inferior sacrum and coccyx. No subcutaneous gas or definitive ulceration is noted in this region (series 4 image 88). CT of the lower extremities includes axial images with the [id number] approximated to the left lower extremity with axial images between the distal femur through the distal left lower extremity. Partial visualization is made of the right lower extremity. Moderate diffuse calcific atherosclerosis is identified. Images are obtained in a portal venous phase of enhancement or further delayed venous phase enhancement and are therefore with limited sensitivity in detecting arterial occlusions. No gross popliteal or trifurcation vessel occlusions are noted. Concentric subcutaneous edema is noted in the distal left tibial/fibular region with adjacent dermal thickening with findings most pronounced along the lateral aspect of the distal left tibial/fibular region. No subcutaneous emphysema is identified. No subcutaneous fluid collections are noted. No discrete ulceration is identified. The visualized right lower extremity which is only partially included in the image [id number] demonstrates concentric subcutaneous edema and moderate concentric dermal thickening along the distal aspect of the right tibial/fibular region. No right lower extremity subcutaneous emphysema or ulcerations are noted. Scattered right pretibial punctate calcifications which may represent chronic vascular calcifications are identified. Focal subcutaneous reticulation is present along the posterior aspects of the left and right calcaneus regions with findings most pronounced on the right. No associated ulcerations or focal calcaneal erosions. CT/CT abdomen pelvis w con IMPRESSION: 1. Concentric, diffuse cutaneous and subcutaneous edema within the lower extremities predominantly involving the distal left and right tibial/fibular regions. Findings are most pronounced in association with the right pretibial and right lateral distal tibial/fibular regions. Prominent findings are also noted along the posterolateral aspect of the distal left tibial/fibular region. No associated subcutaneous emphysema, discrete soft tissue fluid collections or ulcerations. Findings may represent any combination of lower extremity edema or inflammatory changes (cellulitis). 2. Subcutaneous edema without ulceration or fluid collections adjacent to the sacrum suspicious for at least a stage II decubitus ulcer. Of note, prominent extracorporeal fecal material is noted in the intergluteal cleft. 3. Mild bibasilar dependent atelectasis of the lungs. With chronic bibasilar dependent pulmonary calcifications which may represent the sequela of chronic aspiration pneumonitis. Findings are unchanged compared with 08/24/2020. No evidence of active edema or pneumonia 4. Cardiomegaly. 5. Cholelithiasis. 6. Marked focal endplate erosions of the superior endplate of L5. This finding could represent advanced generative disc disease related chronic spondylosis. Alternatively, this finding could represent erosions related to discitis-osteomyelitis. No adjacent soft tissue inflammatory changes are present to specifically suggest discitis-osteomyelitis. No comparison exams where identified to determine the chronicity of this finding. As clinically indicated, this finding could be further evaluated with MRI to assess for discitis-osteomyelitis. 7. Bilateral subcutaneous inflammatory changes along the posterior aspect of the calcaneal regions with findings most pronounced on the right suspicious for decubitus related pressure changes. No associated gross subcutaneous ulcerations or subadjacent fluid collections. No gross erosions of the adjacent calcaneus regions to suggest associated osteomyelitis. 8. Chronic benign-appearing 3.7 cm right subphrenic lesion characterized by dense peripheral eggshell type calcifications and central low density which may represent a chronic hematoma. This finding is unchanged compared with 08/24/2020.
--- NOTE | 2020-10-24 03:59 | PC.NURSE ---
Plan is for admission to icu due to sepsis. Patient has had 4 liters of fluid as well as Pipercillin and Vancomycin. Patient started to respond and be more alert after all the fluid. Patient is going to be going to CAT ScanMelissa FERGUSON from ICU down and is currently attempting to place a central line. Patient temp is 87.8 after 4 hours on the bear hugger.
--- NOTE | 2020-10-24 04:01 | CT_ITS ---
EXAMINATION: CT FOOT WITH CONTRAST, RIGHT CT FOOT WITHOUT CONTRAST, LEFT CT LOWER LEG WITH CONTRAST, LEFT CLINICAL INFORMATION: Chronic redness and swelling. Right heel ulcer with gangrene. Left foot redness. Osteomyelitis? COMPARISON: None TECHNIQUE: Multidetector CT imaging examination of the left lower extremity was performed with intravenous administration of 85 mL of Omnipaque 350. In addition, multidetector CT imaging of each foot was performed after contrast. This CT examination was performed using dose optimization techniques as appropriate, variously including the following: *Automated exposure control *Adjustment of mA and/or kV according to patient size (this includes techniques or standardized protocols for targeted exams where dose is matched to indication/reason for exam; i.e. extremities or head) *Use of iterative reconstruction technique DLP: 2991 mGy-cm (for the multiple CT exams, including head, thorax, abdomen and leg) FINDINGS: Left leg: Diffuse edema of subcutaneous tissues of the left lower extremity. Associated edema/thickening of the skin of the left lower extremity. No soft tissue gas. No evidence of contrast hyperenhancement along fascial planes. No muscular or intermuscular edema or focal fluid collections. Diffuse atrophy and partial fatty replacement of muscles. The fatty atrophy in the lower extremity is worst along the medial gastrocnemius. The visualized tendinous structures are intact. There is atherosclerotic calcification of the visualized popliteal, tibial and peroneal arteries, resulting in irregular, multiple tandem stenoses throughout the vessels, and the vascular stenosis is worst along the distal posterior tibial artery. No evidence of superficial or deep vein thrombosis. Bones have normal alignment at the knee. Moderate tricompartmental osteoarthritis of the knee. Trace amount of fluid is present in the knee joint. Tibia and fibula are intact. No erosion or periostitis. Left foot: The talar dome is well-positioned within the intact ankle mortise. No ankle joint effusion. Subcutaneous tissue edema of the ankle and foot, without evidence of focal fluid collection or soft tissue gas. The evaluation of the bones is limited due to severe motion degradation of multiple images through the foot. No overt erosive changes. However, correlation with radiographs is recommended. Right foot: Findings in the visualized right lower extremity are similar to those observed on the left. Diffuse edema of subcutaneous tissues, and skin thickening/edema of the right lower extremity, without soft tissue gas or focal organized fluid collection. Also, diffuse edema is present in subcutaneous tissues of the foot without evidence of soft tissue abscess. Bones of the right ankle and foot have normal alignment. No fracture or subluxation. No ankle joint effusion. No osseous erosion or periostitis. Diffuse atrophy and fatty replacement of muscles of the foot. These findings could be secondary to chronic disuse of the extremity and/or chronic denervation changes. CT/CT lower leg LT w con IMPRESSION: * No CT imaging evidence of osteomyelitis. Note that images through the region of the left ankle and foot were motion degraded. Therefore, correlation with radiographs would be helpful to further evaluate the bones in this region. * Diffuse edema of subcutaneous tissues of the extremities without soft tissue gas. The edema is nonspecific, and could reflect presence of cellulitis, venous insufficiency, or various causes of anasarca. No evidence of soft tissue abscess, necrotizing fasciitis or myositis.
[2020-10-24 04:25] LABS: Influenza A PCR NEGATIVE (Negative); Influenza B PCR NEGATIVE (Negative); Resp Syncy Virus RNA Qual PCR NEGATIVE (Negative); SARS COV2 PCR INHOUSE NEGATIVE (Negative)
--- NOTE | 2020-10-24 05:10 | PM.CCHP ---
History of Present Illness Date of Service: 10/24/20 <PHYLLIS Baxter - Last Filed: 10/24/20 05:38> Chief Complaint: Altered mental status <PHYLLIS Baxter Last Filed: 10/24/20 05:38> 64-year-old male with a past medical history of hypertension, hypothyroid, intellectual disability, DVT no longer on warfarin, type 2 diabetes, anemia, morbid obesity and multiple falls who lives in a [facility]. He was brought in by ambulance to the emergency department late last night as he has become more and more altered and was hypothermic, this began yesterday morning at 09:00. Academic Advising Director of [facility] told the ED that the patient has a history of multiple episodes of sepsis which have lead to an altered mental status. In the ED, the patients VSS were temp 87.1F, HR 50, BP 80/40 RR 21, O2 sat 99% on RA, labs were notable for pancytopenia, WBC 2.6, RBC 3.10 and platelets 35. APTT 64.6, K 5.8 and + UTI. I placed a TLC in [facility], will start levophed once placement confirmed. <PHYLLIS Baxter - Last Filed: 10/24/20 05:38> Review of Systems Review of Systems: pt unable to articulate. <PHYLLIS Baxter Last Filed: 10/24/20 05:38> Neurologic: Reports confusion <PHYLLIS Baxter Last Filed: 10/24/20 05:38> Psychiatric: Psychiatric: Reports confusion <PHYLLIS Baxter Last Filed: 10/24/20 05:38> [facility] Past Medical History Medical History: Medical History (Updated 11/07/20 @ 00:00 by Background Daemon) Adrenal hypofunction Anemia BPH w urinary obs/LUTS Diabetes type 2, controlled DVT (deep venous thrombosis) Hypertension Hypothyroidism Intellectual disability Morbid obesity Pancytopenia Pressure ulcer of right heel, unstageable Tegretol toxicity Urinary retention with incomplete bladder emptying Venous insufficiency of both lower extremities VRE (vancomycin resistant enterococcus) culture positive Weak urinary stream <PHYLLIS Baxter Last Filed: 10/24/20 05:38> Social History Social History: Social History Household Members: Other Housing: Other Alcohol intake: unknown Smoking Status: Never smoker Second Hand Smoke Exposure: No Advance Directives Date on File: 08/16/20 service: No Current occupational status: disabled <PHYLLIS Baxter - Last Filed: 10/24/20 05:38> Meds Allergies/Adverse reactions: Allergies Allergy/AdvReac Type Severity Reaction Status Date / Time No Known Allergies Allergy Verified 08/24/20 07:57 [No Known Allergies*] <PHYLLIS Baxter Last Filed: 10/24/20 05:38> Home medications: Home Medications Medication Instructions Recorded Confirmed Type levothyroxine 50 mcg PO DAILY 08/23/20 10/24/20 History multivitamin 1 tab PO DAILY 08/23/20 10/24/20 History nystatin 1 applic TOPICAL BID 08/23/20 10/24/20 History vitamin B complex 1 cap PO QAM 08/23/20 10/24/20 History acetaminophen 650 mg PO Q4H PRN 08/24/20 10/24/20 History aspirin 81 mg PO DAILY 08/24/20 10/24/20 History clotrimazole 1 applic TOPICAL BID PRN 08/24/20 10/24/20 History zinc oxide 1 applic TOPICAL BID PRN 08/24/20 10/24/20 History ammonium lactate 1 applic TOPICAL BID 08/30/20 10/24/20 History <PHYLLIS Baxter - Last Filed: 10/24/20 05:38> Physical Exam Vital Signs: Vital Signs: Last Vital Signs Temp 89.2 F L 10/24/20 05:01 Pulse 59 10/24/20 05:01 Resp 12 10/24/20 05:01 BP 91/48 L 10/24/20 05:01 Pulse Ox 98 10/24/20 05:01 Body Mass Index 32.3 <PHYLLIS Baxter - Last Filed: 10/24/20 05:38> Const: General: cooperative, comfortable, no acute distress and confusion <PHYLLIS Baxter Last Filed: 10/24/20 05:38> Nutritional Appearance: obese <PHYLLIS Baxter - Last Filed: 10/24/20 05:38> Orientation/consciousness: confusion <Lisa Nichole PA - Last Filed: 10/24/20 05:38> Limitations: altered mental status <Lisa Nichole PA - Last Filed: 10/24/20 05:38> HENMT: Head: Yes normal to inspection, Yes No palpable skull fracture present, Yes normocephalic and Yes atraumatic <Lisa Nichole PA - Last Filed: 10/24/20 05:38> General nose exam: Normal external nose present <Lisa Nichole PA - Last Filed: 10/24/20 05:38> Face and sinus: Yes normal facial exam <Lisa Nichole PA - Last Filed: 10/24/20 05:38> Mouth: mucous membranes dry <Lisa Nichole PA - Last Filed: 10/24/20 05:38> Eyes: General: appearance normal, both eyes and all related structures <Lisa Nichole PA - Last Filed: 10/24/20 05:38> Pupils: Equal, round and reactive pupils present <Lisa Nichole PA - Last Filed: 10/24/20 05:38> EOM: EOMs intact bilaterally <Lisa Nichole PA - Last Filed: 10/24/20 05:38> Neck: Neck: Yes normal visual inspection, Yes full ROM, Yes trachea midline and Yes supple <Lisa Nichole PA - Last Filed: 10/24/20 05:38> Resp: Effort & Inspection: normal respiratory effort and able to speak in complete sentences <Lisa Nichole PA - Last Filed: 10/24/20 05:38> Auscultation: clear to auscultation bilaterally, no crackles, no rales, no rhonchi and no wheezes <Lisa Nichole PA - Last Filed: 10/24/20 05:38> Cardio: Rate: bradycardic <Lisa Nichole PA - Last Filed: 10/24/20 05:38> Rhythm: regular rhythm <Lisa Nichole PA - Last Filed: 10/24/20 05:38> Heart sounds: normal S1 and S2 <PHYLLIS Baxter - Last Filed: 10/24/20 05:38> GI: Inspection: Yes obesity <Lisa Nichole NV - Last Filed: 10/24/20 05:38> Neuro: General: confusion <Lisa Nichole NV - Last Filed: 10/24/20 05:38> Cranial nerves: Yes Equal, round and reactive pupils present <PHYLLIS Baxter - Last Filed: 10/24/20 05:38> Extrem: Other: pt had Barehugger on, could not evaluate extremities <PHYLLIS Baxter - Last Filed: 10/24/20 05:38> Results Labs CBC and Chem 7: : 10/28/20 05:54 10/28/20 05:54 <PHYLLIS Baxter - Last Filed: 10/24/20 05:38> Labs: Laboratory Results - last 24 hr 10/24/20 10/24/20 10/24/20 01:05 01:05 01:05 MCV 91.9 MCH 29.0 MCHC 31.6 RDW 17.2 H Plt Count 35 L D MPV 13.2 H Immature Gran % (Auto) 0.0 Neut % (Auto) 78.7 H Lymph % (Auto) 13.3 L [place] % (Auto) 6.1 Eos % (Auto) 1.9 Baso % (Auto) 0.0 Lymph # (Auto) 0.4 L [place] # (Auto) 0.2 Eos # (Auto) 0.1 Baso # (Auto) 0.0 Abs Immat Gran (auto) 0.00 Absolute Neuts (auto) 2.1 Absolute Nucleated RBC 0.020 H Nucleated RBC % (auto) 0.8 H Smear Tech's Comments VERIFIED ESR PT 12.5 INR 1.1 APTT 64.6 H* Anion Gap Estim Creat Clear Calc Estimated GFR POC Glucose Random Glucose Lactic Acid 0.6 Calcium Total Bilirubin AST ALT Alkaline Phosphatase C-Reactive Protein B-Natriuretic Peptide Total Protein Albumin TSH Urine Color Urine Appearance Urine pH Ur Specific [place] Urine Protein Urine Glucose (UA) Urine Ketones Urine Blood Urine Nitrite Ur Leukocyte Esterase Urine RBC Urine WBC Ur Squamous Epith Cells Urine Bacteria Coronavirus (PCR) Influenza Type A (PCR) Influenza Type B (PCR) RSV RNA Qual (PCR) 10/24/20 10/24/20 10/24/20 01:06 01:06 01:10 MCV MCH MCHC RDW Plt Count MPV Immature Gran % (Auto) Neut % (Auto) Lymph % (Auto) [place] % (Auto) Eos % (Auto) Baso % (Auto) Lymph # (Auto) [place] # (Auto) Eos # (Auto) Baso # (Auto) Abs Immat Gran (auto) Absolute Neuts (auto) Absolute Nucleated RBC Nucleated RBC % (auto) Smear Tech's Comments ESR PT INR APTT Anion Gap 10 L Estim Creat Clear Calc 149.4 Estimated GFR > 60 POC Glucose 121 H Random Glucose 115 Lactic Acid Calcium 9.6 Total Bilirubin 0.2 AST 48 H D ALT 48 H Alkaline Phosphatase 105 C-Reactive Protein 1.51 H B-Natriuretic Peptide 152 H Total Protein 5.6 L Albumin 3.1 L TSH 3.09 Urine Color Urine Appearance Urine pH Ur Specific [place] Urine Protein Urine Glucose (UA) Urine Ketones Urine Blood Urine Nitrite Ur Leukocyte Esterase Urine RBC Urine WBC Ur Squamous Epith Cells Urine Bacteria Coronavirus (PCR) Influenza Type A (PCR) Influenza Type B (PCR) RSV RNA Qual (PCR) 10/24/20 10/24/20 10/24/20 01:46 02:55 03:29 MCV MCH MCHC RDW Plt Count MPV Immature Gran % (Auto) Neut % (Auto) Lymph % (Auto) [place] % (Auto) Eos % (Auto) Baso % (Auto) Lymph # (Auto) [place] # (Auto) Eos # (Auto) Baso # (Auto) Abs Immat Gran (auto) Absolute Neuts (auto) Absolute Nucleated RBC Nucleated RBC % (auto) Smear Tech's Comments ESR 21 H PT INR APTT Anion Gap Estim Creat Clear Calc Estimated GFR POC Glucose Random Glucose Lactic Acid Calcium Total Bilirubin AST ALT Alkaline Phosphatase C-Reactive Protein B-Natriuretic Peptide Total Protein Albumin TSH Urine Color ORANGE Urine Appearance CLOUDY Urine pH [address] [place] 1.025 Urine Protein 2+ H Urine Glucose (UA) NEG Urine Ketones NEG Urine Blood 3+ H Urine Nitrite POS H Ur Leukocyte Esterase 3+ H Urine RBC 1-4 Urine WBC TNTC H Ur Squamous Epith Cells NONE Urine Bacteria 3+ Coronavirus (PCR) NEGATIVE Influenza Type A (PCR) NEGATIVE Influenza Type B (PCR) NEGATIVE RSV RNA Qual (PCR) NEGATIVE <PHYLLIS Baxter - Last Filed: 10/24/20 05:38> Assessment and Plan (1) Recurrent sepsis due to urinary tract infection: Problem details: Possible resistant gram negative Waiting to see if bacteremia NKDA <PHYLLIS Baxter - Last Filed: 10/24/20 05:38> Status: Resolved <Lisa Nichole PA - Last Filed: 10/24/20 05:38> Patient given Vanco and Zosyn in the ED <PHYLLIS Baxter - Last Filed: 10/24/20 05:38> (2) Intellectual disability: Status: Inactive <PHYLLIS Baxter - Last Filed: 10/24/20 05:38> (3) Pancytopenia: Problem details: as per labs <PHYLLIS Baxter - Last Filed: 10/24/20 05:38> Status: Inactive <Lisa Nichole PA - Last Filed: 10/24/20 05:38> (4) BPH w urinary obs/LUTS: Problem details: July 2020 urinary retention <PHYLLIS Baxter - Last Filed: 10/24/20 05:38> (5) Acute hyperkalemia: Status: Resolved <Lisa Nichole PA - Last Filed: 10/24/20 05:38> gave insulin and D50, will follow <PHYLLIS Baxter - Last Filed: 10/24/20 05:38>
--- NOTE | 2020-10-24 05:22 | PC.NURSE ---
Central line placed by PHYLLIS Reyes. Patient much more alert at this time. He is asking to sit up and that he wants something to drink. Patient's heart rate improved from junctional rhythm in the 40's to 58 sinus renetta. Patient is currently at CAT Scan for testing.
--- NOTE | 2020-10-24 05:39 | W.PM.CCHP ---
Procedures Central Line Placement Left IJ: Consent for Procedure: Emergent-no informed consent obtained <PHYLLIS Baxter Last Filed: 10/24/20 05:40> Time out performed: Yes <PHYLLIS Baxter Last Filed: 10/24/20 05:40> Sterile Technique Used: Yes <PHYLLIS Baxter Last Filed: 10/24/20 05:40> Patient placed on monitor/pulse ox: Yes <PHYLLIS Baxter Last Filed: 10/24/20 05:40> MD prep: mask, gown and gloves <PHYLLIS Baxter Last Filed: 10/24/20 05:40> Central line prep: Chlorhexidine scrub <PHYLLIS Baxter Last Filed: 10/24/20 05:40> Local anesthesia used: lidocaine 2% <PHYLLIS Baxter Last Filed: 10/24/20 05:40> Amount of anesthesia used (ml): 4 <PHYLLIS Baxetr Last Filed: 10/24/20 05:40> Ultrasound used for placement: Yes <PHYLLIS Baxter Last Filed: 10/24/20 05:40> Central line lumen inserted: triple <PHYLLIS Baxter Last Filed: 10/24/20 05:40> Post procedure: sutured in place, good blood return, all ports aspirated, flushed, capped and sterile dressing applied <PHYLLIS Baxter Last Filed: 10/24/20 05:40> Patient tolerated procedure: well and no complications <PHYLLIS Baxter Last Filed: 10/24/20 05:40>
--- NOTE | 2020-10-24 05:57 | XR_ITS ---
EXAMINATION: XR CHEST CLINICAL INFORMATION: Central line COMPARISON: 01/07/2020 TECHNIQUE: Frontal view of the chest was obtained. FINDINGS: Left interim. Central venous catheter terminates within the mid left brachiocephalic vein proximal to the confluence with the superior vena cava. No pneumothorax. Cardiomegaly and pulmonary venous congestion is accompanying by mild interstitial edema. Left hemidiaphragm is obscured. No pleural effusion on the right. Severe left glenohumeral arthrosis with [id number] contact. XR/XR chest 1V IMPRESSION: Left internal jugular central venous line terminates within the mid left brachiocephalic vein. Cardiomegaly, pulmonary venous congestion and mild interstitial edema. Obscuration of left hemidiaphragm likely relates to subsegmental atelectasis, exaggerated by portable technique.
--- NOTE | 2020-10-24 06:17 | PC.NURSE ---
Central line placement confirmed by xray. Patient started on levophed based on algorithm. Patient's weight is 115 kg and drip started at 0.5 mcg/kg/min.
[2020-10-24] MEDS: Insulin Regular, Human 100 UNIT/ML 3 ML VIAL IVPUSH (06:23)
--- NOTE | 2020-10-24 06:25 | PC.NURSE ---
Hematuria noticed in wallace cath bag. Patient started on Levophed
--- NOTE | 2020-10-24 06:27 | PC.NURSE ---
Patient's bp 91/54 and MAP 64 at 0.5 mcg/kg/min. Report given to floor but patient will not be going up until at 7:00am.
--- NOTE | 2020-10-24 06:56 | PC.NURSE ---
Levophed drip increased per protocol due to low bp and Map to 0.07 mcg/kg/min.
[2020-10-24] MEDS: iohexoL 350 MG/ML 100 ML INFUS..BTL IV (07:08)
--- NOTE | 2020-10-24 08:10 | PC.NURSE ---
Resumed care of pt at 0700, Report recieved from zonia cook. pt on levophed which was started at 0500, pt remained on 0.07 mcg/kg dispite maps being in the maría 40 low 50. This rn tritrated up to 0.15 mcg/kg/min and maps increased to 68. pharmacy called for meds that were ordered at 0618 and had not arrived prior to transfer to icu, information was handed off to receiving rn and intensiveist.
[2020-10-24] MEDS: Linezolid/D5W 600 MG/300 ML PIGGYBACK 300 MG IV ×2 (08:23→19:57)
[2020-10-24] MEDS: Levothyroxine Sodium 100 MCG VIAL 50 MCG IVPUSH (09:25)
[2020-10-24 09:35] LABS: Anion Gap 14 (12-20); Blood Urea Nitrogen 21 mg/dL (9-16); Calcium 9.3 mg/dL (8.4-10.2); Carbon Dioxide 21 mmol/L (22-29); Chloride 112 mmol/L (96-108); Creatinine Clr Calc Pharmacy 155.9; Estimated Glomerular Filt Rate > 60; Glucose Random 117 mg/dL (60-115); Potassium 5.6 mmol/l (3.3-5.1); Sodium 141 mmol/L (135-145)
--- NOTE | 2020-10-24 12:01 | W.PM.IDCN ---
History of Present Illness Data of Consult Service Date: 10/24/20 Requesting physician: Bao Flores Primary Care Provider: MD GRAY Pope Reason for consult: mental status changes He presents with mental status changes and lethargy for a day. He has hypothermia He is getting Kyle hugger He has had prior UTIs,enterococcus faecalis in August sensitive to Ampicillin He has dark red urine Review of Systems Review of Systems: Yes Unobtainable due to mental condition Neurologic: Reports confusion Psychiatric: Psychiatric: Reports confusion [facility] Past Medical History Medical History Adrenal hypofunction Anemia Diabetes type 2, controlled DVT (deep venous thrombosis) Hypertension Hypothyroidism Intellectual disability Morbid obesity Pancytopenia SIADH (syndrome of inappropriate ADH production) Tegretol toxicity Venous insufficiency of both lower extremities Family History Family history: reviewed and not pertinent Social History Social History Alcohol intake: unknown Smoking Status: Unknown if ever smoked Use of substances other than those prescribed or required for medical reasons: Unknown Currently Displaying Signs/Symptoms of Drug Intoxication Withdrawal: No Advance Directives: Yes Advance Directives on File: Yes Advance Directives Date on File: 08/16/20 Do you have thoughts of harming others: None Do you have a plan to hurt others: No Plan service: No Current occupational status: disabled Meds Allergies Allergy/AdvReac Type Severity Reaction Status Date / Time No Known Allergies Allergy Verified 08/24/20 07:57 [No Known Allergies*] Home Medications Medication Instructions Recorded Confirmed Type levothyroxine 50 mcg PO DAILY 08/23/20 10/24/20 History multivitamin 1 tab PO DAILY 08/23/20 10/24/20 History nystatin 1 applic TOPICAL BID 08/23/20 10/24/20 History vitamin B complex 1 cap PO QAM 08/23/20 10/24/20 History acetaminophen 650 mg PO Q4H PRN 08/24/20 10/24/20 History aspirin 81 mg PO DAILY 08/24/20 10/24/20 History clotrimazole 1 applic TOPICAL BID PRN 08/24/20 10/24/20 History zinc oxide 1 applic TOPICAL BID PRN 08/24/20 10/24/20 History ammonium lactate 1 applic TOPICAL BID 08/30/20 10/24/20 History Physical Exam Vital Signs: Vital Signs: Last Vital Signs Temp 94.8 F L 10/24/20 11:00 Pulse 76 10/24/20 11:00 Resp 22 H 10/24/20 11:00 BP 105/50 L 10/24/20 11:00 Pulse Ox 97 10/24/20 11:00 Body Mass Index 36.0 Const: General: confusion Orientation/consciousness: confusion HENMT: Head: Yes normal to inspection Mouth: Normal oral and palatal mucosa present Eyes: General: appearance normal, both eyes and all related structures Resp: Effort & Inspection: normal respiratory effort Cardio: Rate: regular rate Rhythm: regular rhythm GI: Palpation (GI): Soft to palpation and nontender : General: Yes no CVA tenderness Back/Spine/Pelvis: Back: no CVA tenderness Skin: General skin exam: no rashes or lesions noted Neuro: General: confusion Extrem: Other: venous stasis irritation Assessment and Plan (1) Recurrent sepsis due to urinary tract infection: Problem details: Possible resistant gram negative Waiting to see if bacteremia NKDA Status: Acute Continue Vancomycin and Zosyn at this time Will have results of blood and urine cultures soon and adjust accordingly Urology is following (2) Sepsis: Status: Acute Results Labs CBC & Chem 7: 10/24/20 01:05 10/24/20 08:56 Labs: Short CBC 10/24/20 Range/Units 01:05 WBC 2.6 L (4.8-10.8) X10*3/uL Hgb 9.0 L (14.0-18.0) g/dl Hct 28.5 L (42-52) % Plt Count 35 L D (160-400) X10*3/uL BMP 10/24/20 10/24/20 01:06 08:56 Sodium 140 141 Potassium 5.8 H D 5.6 H Chloride 113 H 112 H Carbon Dioxide 23 21 L BUN 23 H 21 H Creatinine 0.59 0.60 Calcium 9.6 9.3 Liver Function 10/24/20 Range/Units 01:06 Total Bilirubin 0.2 (0.0-1.0) mg/dL AST 48 H D (5-37) U/L ALT 48 H (0-40) U/L Alkaline Phosphatase 105 (39-117) U/L Albumin 3.1 L (3.5-5.0) g/dL Urine 10/24/20 Range/Units 01:46 Urine Color ORANGE Urine Appearance CLOUDY Urine pH 6.0 (5.0-8.0) Ur Specific [place] 1.025 (1.005-1.025) Urine Protein 2+ H (NEG-TRACE) MG/DL Urine Glucose (UA) NEG (NEG) MG/DL
[2020-10-24] MEDS: Hydrocortisone Sod Succ/PF 100 MG VIAL 50 MG IVPUSH (14:30)
--- NOTE | 2020-10-24 16:44 | PC.NURSE ---
Patient admitted to ICU at approximately 0815 from ED. Pt was previously lined and started on Levo for hypotension in ED. Remains on Levo for goal MAP>60. Weaned off bear hugger. Continues on IV Abx. 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 Contacted nursing election supervisor, awaiting permission. Will continue to monitor.
[2020-10-25] VITALS (18 sets, daily range): BP systolic 94–164; BP diastolic 47–72; PULSE 60–91; RESP 12–26; TEMP 35.2–37.1; O2SAT 94–99; BMI 35.7
[2020-10-25] MEDS: Hydrocortisone Sod Succ/PF 100 MG VIAL 50 MG IVPUSH ×2 (02:59→13:46)
[2020-10-25] MEDS: Piperacillin Sodium/Tazobactam 3.375 GM in 0.9 % Sodium Chloride 50 ML IV ×4 (03:02→21:20)
[2020-10-25] MEDS: Levothyroxine Sodium 100 MCG VIAL 37.5 MCG IVPUSH (05:51)
[2020-10-25 06:23] LABS: Basophils Percent Auto 0.2 % (0-2); Eosinophils Percent Auto 0.1 % (0-4); Hemoglobin 9.7 g/dl (14.0-18.0); Imm Gran Abs Auto 0.07 X10*3/uL (0.00-0.03); Imm Gran Pct Auto 0.5 % (0.0-0.4); Lymphocytes Absolute Auto 0.4 X10*3/uL (1.2-4.9); MANUAL DIFF FLAG SCAN; Monocytes Percent Auto 6.9 % (2-11); NRBC Pct Auto 0.5 /100WBC (0.0-0.2); PLT CLUMP 1; SCAN SMEAR FLAG 1
[2020-10-25 06:24] LABS: Hematocrit 30.6 % (42-52); Lymphocytes Percent Auto 3.3 % (20-40); Mean Corpuscular HGB Conc 31.7 g/dl (31.0-36.0); Mean Corpuscular Hemoglobin 29.1 pg (27.0-33.0); Mean Corpuscular Volume 91.9 fL (80-98); Mean Platelet Volume 12.2 fL (9.4-12.4); Monocytes Absolute Auto 0.9 X10*3/uL (0.1-1.2); Neutrophils Absolute Auto 11.7 X10*3/uL (2.0-8.3); Red Blood Count 3.33 X10*6/uL (4.60-5.80); Red Cell Distribution Width 17.9 % (11.0-16.0); White Blood Count 13.1 X10*3/uL (4.8-10.8)
[2020-10-25 06:29] LABS: Alanine Aminotransferase 57 U/L (0-40); Albumin Level 3.2 g/dL (3.5-5.0); Alkaline Phosphatase 106 U/L (39-117); Anion Gap 12 (12-20); Aspartate Amino Transferase 53 U/L (5-37); Bilirubin Total 0.9 mg/dL (0.0-1.0); Blood Urea Nitrogen 17 mg/dL (9-16); Calcium 10.1 mg/dL (8.4-10.2); Carbon Dioxide 22 mmol/L (22-29); Chloride 114 mmol/L (96-108); Creatinine Clr Calc Pharmacy 122.5; Estimated Glomerular Filt Rate > 60; Glucose Random 111 mg/dL (60-115); Magnesium 1.6 mg/dL (1.6-2.6); Phosphorus 2.8 mg/dL (2.7-4.5); Potassium 5.1 mmol/l (3.3-5.1); Sodium 143 mmol/L (135-145); Total Protein 5.8 g/dL (6.5-8.0)
[2020-10-25 06:30] LABS: B Type Natriuretic Peptide 279 pg/mL (<100)
[2020-10-25 06:33] LABS: Prothrombin Time 12.3 SEC (10.8-13.0)
[2020-10-25 06:36] LABS: Partial Thromboplastin Time 54.8 SEC (24.1-38.0)
[2020-10-25 06:43] LABS: Base Excess VBG -4.5 mmol/L; HCO3 VBG 21 mmol/L; PCO2 VBG 42 mmhg; PO2 VBG 54 mmhg; pH VBG 7.32 (7.32-7.43)
[2020-10-25 06:44] LABS: Oxygen Saturation VBG 86.9 %
[2020-10-25 06:48] LABS: Platelet Count 70 X10*3/uL (160-400)
[2020-10-25 06:50] LABS: SLIDE REVIEW VERIFIED
[2020-10-25] MEDS: levoFLOXacin/D5W 750 MG/150 ML PIGGYBACK 100 MG IV (07:14)
[2020-10-25] MEDS: Magnesium Sulfate/D5W 1 GM/100 ML PIGGYBACK IV (07:42)
--- NOTE | 2020-10-25 10:37 | MHC.CM.PN ---
Attempted to meet with patient in regards to d/c planning. Patient has history of MR. Attempted to reach out to patient's HCP/Sister, Ruby via telephone at [phone]. Requested return telephone call. Case management assessment completed using medical record. Patient is from a [facility]. He was discharged from [facility] on 08/30/20 back to his [facility] with [facility] wound care clinic. PCP is Dr Barillas. IMM sent via certified mail to Ruby. Anticipate patient will return to [facility] and [facility] Wound clinic when medically stable. HCP is not on file. Spoke with Nayan of [facility]. She will attempt to obtain a copy for hospital. Continue to monitor for d/c needs.
[2020-10-25] MEDS: vancomycin HCL 1,000 MG in 0.9 % Sodium Chloride 250 ML 270 MG IV (11:23)
--- NOTE | 2020-10-25 14:58 | P.PNCC_ITS ---
Subjective Subjective Date of Service: 10/25/20 Interval History: 64-year-old mentally challenged individual in a [facility] a number of times comes in with sepsis and apparently urosepsis growing gram-negative rods in the blood but an asymmetric rubor and warmth of the lower extremities with an open wound on his right heel and what looks to be like a cellulitic process a ending just to below the knee on the right side He is off pressors he did receive 3 L of fluid but not developed any clinical failure even though his chest x-ray appears somewhat plus Thorek and my bedside echo today shows ejection fraction 55% without segmental wall motion abnormality and no primary valve or pericardial disease Physical Exam Vital Signs: Vital Signs: Last Vital Signs Temp 95.4 F L 10/25/20 14:00 Pulse 74 10/25/20 14:00 Resp 23 H 10/25/20 14:00 BP 108/52 L 10/25/20 14:00 Pulse Ox 98 10/25/20 14:00 Body Mass Index 35.7 Const: Other: He is awake and alert much better than yesterday and eating and tolerating his dietary consistency well Skin with bilateral stasis dermatitis but right lower extremity cellulitis Neurological 8 is symmetric Cardiac exam with normal S1 normal S2 no gallops no murmurs no neck vein distension Chest essentially clear Abdomen benign no again a megaly good bowel sounds Objective Data Labs CBC & Chem 7: 10/25/20 05:40 10/25/20 05:40 Labs: Laboratory Results - last 24 hr 10/25/20 10/25/20 10/25/20 05:40 05:40 05:40 WBC 13.1 H RBC 3.33 L Hgb 9.7 L Hct 30.6 L MCV 91.9 MCH 29.1 MCHC 31.7 RDW 17.9 H Plt Count 70 L D MPV 12.2 Immature Gran % (Auto) 0.5 H Neut % (Auto) 89.0 H Lymph % (Auto) 3.3 L [place] % (Auto) 6.9 Eos % (Auto) 0.1 Baso % (Auto) 0.2 Lymph # (Auto) 0.4 L [place] # (Auto) 0.9 Eos # (Auto) 0.0 Baso # (Auto) 0.0 Abs Immat Gran (auto) 0.07 H Absolute Neuts (auto) 11.7 H Absolute Nucleated RBC 0.060 H Nucleated RBC % (auto) 0.5 H Smear Tech's Comments VERIFIED PT 12.3 INR 1.0 APTT 54.8 H VBG pH VBG pCO2 VBG pO2 VBG HCO3 VBG O2 Saturation VBG Base Excess Sodium 143 Potassium 5.1 Chloride 114 H Carbon Dioxide 22 Anion Gap 12 BUN 17 H Creatinine 0.76 Estim Creat Clear Calc 122.5 Estimated GFR > 60 Random Glucose 111 Calcium 10.1 D Phosphorus 2.8 Magnesium 1.6 Total Bilirubin 0.9 AST 53 H ALT 57 H Alkaline Phosphatase 106 B-Natriuretic Peptide Total Protein 5.8 L Albumin 3.2 L 10/25/20 10/25/20 05:40 05:40 WBC RBC Hgb Hct MCV MCH MCHC RDW Plt Count MPV Immature Gran % (Auto) Neut % (Auto) Lymph % (Auto) [place] % (Auto) Eos % (Auto) Baso % (Auto) Lymph # (Auto) [place] # (Auto) Eos # (Auto) Baso # (Auto) Abs Immat Gran (auto) Absolute Neuts (auto) Absolute Nucleated RBC Nucleated RBC % (auto) Smear Tech's Comments PT INR APTT VBG pH 7.32 VBG pCO2 42 VBG pO2 54 VBG HCO3 21 VBG O2 Saturation 86.9 VBG Base Excess -4.5 Sodium Potassium Chloride Carbon Dioxide Anion Gap BUN Creatinine Estim Creat Clear Calc Estimated GFR Random Glucose Calcium Phosphorus Magnesium Total Bilirubin AST ALT Alkaline Phosphatase B-Natriuretic Peptide 279 H Total Protein Albumin Microbiology Microbiology Results: Microbiology 10/24/20 01:46 Blood - Venous Blood Culture - Preliminary Gram negative ann 10/24/20 01:46 Blood - Venous Blood Culture - Preliminary Gram negative ann 10/24/20 00:45 Urine [place] Urine Culture - Preliminary Gram negative ann Progress Note: A&P Assessment and plan (1) Acute hyperkalemia: Status: Acute (2) Adrenal hypofunction: Status: Resolved (3) Recurrent sepsis due to urinary tract infection: Problem details: Possible resistant gram negative Waiting to see if bacteremia NKDA Status: Acute (4) Sepsis: Status: Acute (5) Acute UTI: Status: Acute (6) Weak urinary stream: Status: Acute (7) BPH w urinary obs/LUTS: Problem details: July 2020 urinary retention Status: Acute (8) Urinary retention with incomplete bladder emptying: Status: Acute (9) VRE (vancomycin resistant enterococcus) culture positive: Status: Acute Assessment and Plan: At this point covering the urinary tract with Zosyn but because of cellulitis will cover with vancomycin He was cleared for dietary intake and for increased out of bed activity and he we hopefully remain off pressors Time Spent With Patient Time: Total time spent is greater than 50% in coordination of care (as documented) at patient's floor/unit and/or counseling patient: Total time spent with greater than 50% in coordination of care (as documented) at patient's floor/unit and/or counseling patient:: 30
[2020-10-25] MEDS: QUEtiapine Fumarate 25 MG TABLET 12.5 MG PO (21:31)
[2020-10-25] MEDS: Tamsulosin HCL 0.4 MG CAPSULE PO (21:31)
[2020-10-26] MEDS: Hydrocortisone Sod Succ/PF 100 MG VIAL 50 MG IVPUSH ×2 (01:28→15:02)
[2020-10-26] MEDS: Piperacillin Sodium/Tazobactam 3.375 GM in 0.9 % Sodium Chloride 50 ML IV ×4 (01:29→20:18)
[2020-10-26 03:40] VITALS: BP 128/60; PULSE 60; RESP 19; TEMP 36.7
[2020-10-26 07:32] VITALS: BP 143/69; PULSE 89; RESP 18; TEMP 36.7; O2SAT 99
[2020-10-26 08:00] VITALS: BMI 35.6
--- NOTE | 2020-10-26 09:53 | P.PNIM_ITS ---
Subjective Subjective Date of Service: 10/26/20 Interval History: no complaints Cardiovascular Cardiovascular: Reports no additional cardiovascular complaints Respiratory Respiratory: Reports no additional respiratory complaints Physical Exam Vital Signs: Vital Signs: Last Vital Signs Temp 98.0 F 10/26/20 07:32 Pulse 89 10/26/20 07:32 Resp 18 10/26/20 07:32 BP 143/69 H 10/26/20 07:32 Pulse Ox 99 10/26/20 07:32 Body Mass Index 35.6 General: AO X 3, no acute distress Resp: CTA bilateral CVS: S1,S2,RRR GI: soft, non tender, non distended Neuro: motor grossly intact Psych: impaired insight Objective Data Current Medications Generic Name Dose Route Start Last Admin Trade Name Freq PRN Reason Stop Dose Admin Aspirin 81 mg 10/26/20 09:00 Aspirin Enteric Coated 81 Mg Tablet.Dr PO DAILY EDUARDO Finasteride 5 mg 10/26/20 09:00 Finasteride 5 Mg Tablet PO DAILY [facility] Hydrocortisone Sodium Succinate 50 mg 10/24/20 13:45 10/26/20 01:28 Hydrocortisone Sod Succ/Pf 100 Mg Vial IVPUSH 50 mg Q12H EDUARDO Administration Piperacillin Sod/Tazobactam 50 mls @ 100 mls/hr 10/24/20 14:00 10/26/20 01:59 Sod 3.375 gm/ Sodium Chloride IV Infused Q6H EDUARDO Infusion Levothyroxine Sodium 50 mcg 10/26/20 09:00 Levothyroxine Sodium 50 Mcg Tablet PO DAILY@0600 [facility] Levothyroxine Sodium 12.5 mcg 10/26/20 06:00 10/26/20 06:14 Levothyroxine Sodium 25 Mcg Tablet PO Not Given DAILY@0600 [facility] Quetiapine Fumarate 12.5 mg 10/25/20 21:01 10/25/20 21:31 Quetiapine Fumarate 25 Mg Tablet PO 12.5 mg BEDTIME EDUARDO Administration Tamsulosin HCl 0.4 mg 10/25/20 21:01 10/25/20 21:31 Tamsulosin Hcl 0.4 Mg Capsule PO 0.4 mg BEDTIME EDUARDO Administration Labs CBC & Chem 7: 10/25/20 05:40 10/25/20 05:40 Microbiology Microbiology Results: Microbiology 10/24/20 01:46 Blood - Venous Blood Culture - Preliminary Gram negative ann 10/24/20 01:46 Blood - Venous Blood Culture - Preliminary Gram negative ann 10/24/20 00:45 Urine [place] Urine Culture - Preliminary Gram negative ann Assessment and Plan (1) Sepsis: Status: Acute (2) Acute UTI: Status: Acute (3) Adrenal hypofunction: Status: Resolved Assessment and Plan: 64M presented with ams, found to ahve septic shock due to uti with bacteremia, briefly required vasopressor, shock now resolved and downgraded to medical floor septic shock poa due to UTI with GNR bacteremia complicated by metabolic encephlaopathy and adrenal insufficiency continue zosyn, solucortef, follow up cultures hypothyroid synthroid
[2020-10-26] MEDS: Aspirin Enteric Coated 81 MG TABLET.DR PO (09:55)
[2020-10-26] MEDS: Levothyroxine Sodium 50 MCG TABLET PO (09:55)
[2020-10-26] MEDS: Finasteride 5 MG TABLET PO (09:55)
[2020-10-26 16:00] VITALS: BP 131/65; PULSE 65; RESP 18; TEMP 36.6; O2SAT 95
[2020-10-26 18:56] VITALS: BP 112/58; PULSE 89; RESP 19; TEMP 36.8; O2SAT 95
--- NOTE | 2020-10-26 19:16 | MHC.PIE ---
P: PATIENT REMOVED HERNANDEZ CATHETER AT 1430. BLOOD NOTED TO BE COMING FROM [facility]. I: NOTIFIED DOCTOR ZONIA. NO NEW ORDERS E: PATIENT NOTED TO HAVE CONTINUED BLEEDING FROM [facility]. PATIENT DUE TO VOID AT 2030.
[2020-10-26] MEDS: QUEtiapine Fumarate 25 MG TABLET 12.5 MG PO (20:19)
[2020-10-26] MEDS: Tamsulosin HCL 0.4 MG CAPSULE PO (20:21)
[2020-10-26 21:59] LABS: Vancomycin Trough 5.1 mcg/mL (10.0-20.0)
[2020-10-26 23:14] VITALS: BP 139/69; PULSE 75; RESP 19; TEMP 36.8; O2SAT 96
[2020-10-27] MEDS: Hydrocortisone Sod Succ/PF 100 MG VIAL 50 MG IVPUSH (03:21)
[2020-10-27] MEDS: Piperacillin Sodium/Tazobactam 3.375 GM in 0.9 % Sodium Chloride 50 ML IV ×4 (03:27→20:23)
[2020-10-27 03:45] VITALS: BP 160/86; PULSE 78; RESP 19; TEMP 36.3
[2020-10-27] MEDS: Levothyroxine Sodium 50 MCG TABLET PO (05:38)
[2020-10-27] MEDS: Levothyroxine Sodium 25 MCG TABLET 12.5 MCG PO (05:38)
[2020-10-27 07:28] VITALS: BP 135/71; PULSE 66; RESP 18; TEMP 36.3; O2SAT 96
[2020-10-27] MEDS: Finasteride 5 MG TABLET PO (07:49)
[2020-10-27] MEDS: Aspirin Enteric Coated 81 MG TABLET.DR PO (07:49)
[2020-10-27 08:00] VITALS: BMI 35.1
--- NOTE | 2020-10-27 10:03 | HO.PM.IMPN ---
Subjective Subjective Date of Service: 10/27/20 Interval History: no complaints Cardiovascular Cardiovascular: Reports no additional cardiovascular complaints Respiratory Respiratory: Reports no additional respiratory complaints Physical Exam Vital Signs: Vital Signs: Last Vital Signs Temp 97.4 F 10/27/20 07:28 Pulse 66 10/27/20 07:28 Resp 18 10/27/20 07:28 BP 135/71 10/27/20 07:28 Pulse Ox 96 10/27/20 07:28 Body Mass Index 35.1 General: AO X 3, no acute distress Resp: CTA bilateral CVS: S1,S2,RRR GI: soft, non tender, non distended Neuro: motor grossly intact Psych: appropriate affect Objective Data Current Medications Generic Name Dose Route Start Last Admin Trade Name Freq PRN Reason Stop Dose Admin Aspirin 81 mg 10/26/20 09:00 10/27/20 07:49 Aspirin Enteric Coated 81 Mg Tablet.Dr PO 81 mg DAILY EDUARDO Administration Finasteride 5 mg 10/26/20 09:00 10/27/20 07:49 Finasteride 5 Mg Tablet PO 5 mg DAILY EDUARDO Administration Piperacillin Sod/Tazobactam 50 mls @ 100 mls/hr 10/24/20 14:00 10/27/20 08:43 Sod 3.375 gm/ Sodium Chloride IV Infused Q6H EDUARDO Infusion Levothyroxine Sodium 50 mcg 10/26/20 09:00 10/27/20 05:38 Levothyroxine Sodium 50 Mcg Tablet PO 50 mcg DAILY@0600 EDUARDO Administration Levothyroxine Sodium 12.5 mcg 10/26/20 06:00 10/27/20 05:38 Levothyroxine Sodium 25 Mcg Tablet PO 12.5 mcg DAILY@0600 EDUARDO Administration Quetiapine Fumarate 12.5 mg 10/25/20 21:01 10/26/20 20:19 Quetiapine Fumarate 25 Mg Tablet PO 12.5 mg BEDTIME EDUARDO Administration Tamsulosin HCl 0.4 mg 10/25/20 21:01 10/26/20 20:21 Tamsulosin Hcl 0.4 Mg Capsule PO 0.4 mg BEDTIME EDUARDO Administration Labs CBC & Chem 7: 10/25/20 05:40 10/25/20 05:40 Microbiology Microbiology Results: Microbiology 10/24/20 01:46 Blood - Venous Blood Culture - Preliminary Gram negative ann 10/24/20 01:46 Blood - Venous Blood Culture - Preliminary Gram negative ann 10/24/20 00:45 Urine [place] Urine Culture - Preliminary Gram negative ann Assessment and Plan (1) Sepsis: Status: Acute (2) Acute UTI: Status: Acute (3) Adrenal hypofunction: Status: Resolved Assessment and Plan: 64M presented with ams, found to ahve septic shock due to uti with bacteremia, briefly required vasopressor, shock now resolved and downgraded to medical floor septic shock poa due to UTI with GNR bacteremia complicated by metabolic encephlaopathy and adrenal insufficiency continue zosyn, follow up cultures bp has been stable, will dc solucortef hypothyroid synthroid
[2020-10-27 11:37] VITALS: BP 142/64; PULSE 66; RESP 18; TEMP 36.3; O2SAT 97
[2020-10-27 14:56] VITALS: BP 133/55; PULSE 69; RESP 20; TEMP 36.9; O2SAT 97
[2020-10-27 19:06] VITALS: BP 139/78; PULSE 78; RESP 19; TEMP 36.8; O2SAT 96
[2020-10-27] MEDS: QUEtiapine Fumarate 25 MG TABLET 12.5 MG PO (20:22)
[2020-10-27] MEDS: Tamsulosin HCL 0.4 MG CAPSULE PO (20:22)
[2020-10-28] VITALS: BP 133/56; PULSE 83; RESP 14; TEMP 36.3; O2SAT 96
[2020-10-28] MEDS: Piperacillin Sodium/Tazobactam 3.375 GM in 0.9 % Sodium Chloride 50 ML IV ×3 (02:09→19:51)
[2020-10-28 03:03] VITALS: BP 134/67; PULSE 78; RESP 18; TEMP 36.4; O2SAT 99
[2020-10-28] MEDS: Levothyroxine Sodium 50 MCG TABLET PO (05:49)
[2020-10-28] MEDS: Levothyroxine Sodium 25 MCG TABLET 12.5 MCG PO (05:49)
[2020-10-28 06:20] LABS: Basophils Percent Auto 0.1 % (0-2); Eosinophils Absolute Auto 0.4 X10*3/uL (0.0-0.4); MANUAL DIFF FLAG SCAN; Mean Corpuscular Hemoglobin 28.4 pg (27.0-33.0); Mean Corpuscular Volume 91.6 fL (80-98); PLT CLUMP 1; SCAN SMEAR FLAG 1
[2020-10-28 06:23] LABS: Eosinophils Percent Auto 4.5 % (0-4); Hematocrit 27.1 % (42-52); Hemoglobin 8.4 g/dl (14.0-18.0); Imm Gran Abs Auto 0.02 X10*3/uL (0.00-0.03); Imm Gran Pct Auto 0.3 % (0.0-0.4); Lymphocytes Absolute Auto 0.9 X10*3/uL (1.2-4.9); Lymphocytes Percent Auto 11.3 % (20-40); Mean Platelet Volume 11.4 fL (9.4-12.4); Monocytes Absolute Auto 0.8 X10*3/uL (0.1-1.2); Monocytes Percent Auto 9.8 % (2-11); Neutrophils Absolute Auto 5.7 X10*3/uL (2.0-8.3); Red Blood Count 2.96 X10*6/uL (4.60-5.80); Red Cell Distribution Width 18.2 % (11.0-16.0); White Blood Count 7.8 X10*3/uL (4.8-10.8)
[2020-10-28 06:28] LABS: Platelet Count 93 X10*3/uL (160-400)
[2020-10-28 06:50] LABS: SLIDE REVIEW VERIFIED
[2020-10-28 06:51] LABS: Anion Gap 12 (12-20); Blood Urea Nitrogen 19 mg/dL (9-16); Calcium 9.2 mg/dL (8.4-10.2); Carbon Dioxide 25 mmol/L (22-29); Chloride 114 mmol/L (96-108); Creatinine Clr Calc Pharmacy 129.4; Estimated Glomerular Filt Rate > 60; Glucose Fasting 126 mg/dL (60-99); Sodium 147 mmol/L (135-145)
[2020-10-28 08:00] VITALS: BP 121/69; PULSE 79; RESP 20; TEMP 36; O2SAT 98
--- NOTE | 2020-10-28 09:24 | MHC.CM.PN ---
Addendum entered by Jessica Johnson 10/28/20 09:42: GROUP HOPME 26-[address] [facility] [phone] CONTACT NAMES AND NUMBERS- KARI VELA [phone] (*SISTER AND HCP )ON FILE MOSLT FORM ZACK COATES (PRACTICE COORDINATOR) [phone] CHRISTIAN MCQUEEN (FOOD ASSEMBLER KITCHEN) [phone] EXT [phone] GUIDEWIRE (CRISIS )PHONE [phone] YAZAN CHRISTIE (SERVICE CORDINATOR ) [phone] EXT [phone] Original Note: NURSE GEOCHEMICAL MANAGER NOTE, ELECTRONIC MEDICAL RECORD REVIEWED , PER DOCUMENTATION PATIENT WAS ADMITTED FOR ALTERED MENTAL STATUS CHANGES , AND FOUND PER DOCUMENTATION TO HAVE SEPTIC SHOCK 2ND TO GRAM NEGATIVE =BACTERMIA UTI AND REQUIRED ICU ADMISSION AND VASOPRESSORS, NOW RESOLVED HE WAS MOVED TO THE MEDICAL SURGICAL UNIT ON 10/27/2020 HE CONTINUES TO BE N HIS IV ANTIBIOTIC AND SOLUMEDEROL. MONITORING ALL LABS AND INTAKE OUTPUT, AIR LOSS BED , CONSULTS FOR INFECTIOUS DISEASE AND WOUND CARE PLAN RETURN BACK TO THE [facility]
[2020-10-28] MEDS: Aspirin Enteric Coated 81 MG TABLET.DR PO (09:45)
[2020-10-28] MEDS: Finasteride 5 MG TABLET PO (09:45)
[2020-10-28 12:00] VITALS: RESP 19
--- NOTE | 2020-10-28 12:35 | P.CONIM_ITS ---
History of Present Illness Data of Consult Service Date: 10/28/20 Requesting physician: Trever Clifton Primary Care Provider: Jason Barillas MD HPI Reason for consult: right heel wound 64-year-old male known to wound care clinic with recent care for necrotic heel wound due to pressure. Patient resides in a facility. Presented with altered mental status and found to have urinary tract infection grown Gram-negative rods. Klebsiella back to remain is identified. The patient was on vancomycin and Zosyn. He is now on Zosyn alone. We were asked to view the right heel wound and make recommendations for care. There has been no debridement of the necrotic heel. Review of Systems Neurologic: Reports confusion Psychiatric: Psychiatric: Reports confusion [facility] Medical History (Updated 10/28/20 @ 12:44 by PHYLLIS Fournier) Adrenal hypofunction Anemia Diabetes type 2, controlled DVT (deep venous thrombosis) Hypertension Hypothyroidism Intellectual disability Morbid obesity Pancytopenia Tegretol toxicity Venous insufficiency of both lower extremities Family history: reviewed and not pertinent Social History Household Members: Other Household Members Other:: nursing home Housing: Other Housing Other:: nursing home Do you presently have visiting nurse or other home services: Yes Alcohol intake: unknown Smoking Status: Never smoker Second Hand Smoke Exposure: No Use of substances other than those prescribed or required for medical reasons: No Currently Displaying Signs/Symptoms of Drug Intoxication Withdrawal: No Have you been hit, kicked, punched, or otherwise hurt by someone within the past year? If so, by whom?: No Do you feel safe in your current relationship?: No Is there a partner from a previous relationship who is making you feel unsafe now?: No Are you made to feel afraid or neglected: No Advance Directives: Yes Advance Directives on File: Yes Advance Directives Date on File: 08/16/20 Do you have thoughts of harming others: None Do you have a plan to hurt others: No Plan Recently lost weight without trying: No service: No Current occupational status: disabled Meds Allergies Allergy/AdvReac Type Severity Reaction Status Date / Time No Known Allergies Allergy Verified 08/24/20 07:57 [No Known Allergies*] Home Medications Medication Instructions Recorded Confirmed Type levothyroxine 50 mcg PO DAILY 08/23/20 10/24/20 History multivitamin 1 tab PO DAILY 08/23/20 10/24/20 History nystatin 1 applic TOPICAL BID 08/23/20 10/24/20 History vitamin B complex 1 cap PO QAM 08/23/20 10/24/20 History acetaminophen 650 mg PO Q4H PRN 08/24/20 10/24/20 History aspirin 81 mg PO DAILY 08/24/20 10/24/20 History clotrimazole 1 applic TOPICAL BID PRN 08/24/20 10/24/20 History zinc oxide 1 applic TOPICAL BID PRN 08/24/20 10/24/20 History ammonium lactate 1 applic TOPICAL BID 08/30/20 10/24/20 History Physical Exam Vital Signs and Narrative: Vital Signs: Last Vital Signs Temp 96.8 F 10/28/20 08:00 Pulse 79 10/28/20 08:00 Resp 20 10/28/20 08:00 BP 121/69 10/28/20 08:00 Pulse Ox 98 10/28/20 08:00 Body Mass Index 35.1 However is pleasant, cooperative and in no acute distress. Vital signs are stable. Venous stasis skin changes of the bilateral lower extremities are not new. He is wearing inflow double heel fluid orders which have removed to evaluate the right heel. A over wrists foam with significant drainage is removed from the right heel revealing improved integrity. Less necrosis and more pain granular tissue was identified. Of note a surgical outline of potential cellulitis is identified at the right anterior tibial region but there is no evidence of right lower extremity cellulitis during this evaluation. There is no edema or erythema. There is no warmth or swelling. Const: General: confusion Orientation/consciousness: confusion Neuro: General: confusion Results Labs CBC and Chem 7: 10/28/20 05:54 10/28/20 05:54 Labs: Laboratory Results - last 24 hr 10/28/20 10/28/20 05:54 05:54 MCV 91.6 MCH 28.4 MCHC 31.0 RDW 18.2 H Plt Count 93 L D MPV 11.4 Immature Gran % (Auto) 0.3 Neut % (Auto) 74.0 H Lymph % (Auto) 11.3 L [place] % (Auto) 9.8 Eos % (Auto) 4.5 H Baso % (Auto) 0.1 Lymph # (Auto) 0.9 L [place] # (Auto) 0.8 Eos # (Auto) 0.4 Baso # (Auto) 0.0 Abs Immat Gran (auto) 0.02 Absolute Neuts (auto) 5.7 Absolute Nucleated RBC 0.000 Nucleated RBC % (auto) 0.0 Smear Tech's Comments VERIFIED Anion Gap 12 Estim Creat Clear Calc 129.4 Estimated GFR > 60 Fasting Glucose 126 H Calcium 9.2 D Assessment and Plan (1) Pressure ulcer of right heel, unstageable: Start date: 10/28/20 Problem details: right heel wound Status: Acute This is a 64-year-old male who was hospitalized for urinary tract infection and sepsis. 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 There is no evidence of infection of the heel, however he is on Zosyn for Klebsiella in the blood. This right heel wound is looking improved with less necrosis and more granular tissue. Recommendations have been ordered which include avoidance of foam dressings as copious drainage is noted causing maceration. Continue with Betadine paint to necrotic heel and barrier cream to protect new skin and open areas. Inflatable heel boots are favored with continued offloading and bed mobility. Thank you for the courtesy of this consultation.
--- NOTE | 2020-10-28 13:22 | HO.PM.IMPN ---
Subjective Subjective Date of Service: 10/28/20 Interval History: feels well Cardiovascular Cardiovascular: Reports no additional cardiovascular complaints Respiratory Respiratory: Reports no additional respiratory complaints Physical Exam Vital Signs: Vital Signs: Last Vital Signs Temp 96.8 F 10/28/20 08:00 Pulse 79 10/28/20 08:00 Resp 20 10/28/20 08:00 BP 121/69 10/28/20 08:00 Pulse Ox 98 10/28/20 08:00 Body Mass Index 35.1 General: no acute distress Resp: CTA bilateral CVS: S1,S2,RRR GI: soft, non tender, non distended Neuro: motor grossly intact Psych: appropriate affect Objective Data Current Medications Generic Name Dose Route Start Last Admin Trade Name Freq PRN Reason Stop Dose Admin Aspirin 81 mg 10/26/20 09:00 10/28/20 09:45 Aspirin Enteric Coated 81 Mg Tablet.Dr PO 81 mg DAILY EDUARDO Administration Finasteride 5 mg 10/26/20 09:00 10/28/20 09:45 Finasteride 5 Mg Tablet PO 5 mg DAILY EDUARDO Administration Piperacillin Sod/Tazobactam 50 mls @ 100 mls/hr 10/24/20 14:00 10/28/20 09:10 Sod 3.375 gm/ Sodium Chloride IV Infused Q6H EDUARDO Infusion Levothyroxine Sodium 50 mcg 10/26/20 09:00 10/28/20 05:49 Levothyroxine Sodium 50 Mcg Tablet PO 50 mcg DAILY@0600 EDUARDO Administration Levothyroxine Sodium 12.5 mcg 10/26/20 06:00 10/28/20 05:49 Levothyroxine Sodium 25 Mcg Tablet PO 12.5 mcg DAILY@0600 EDUARDO Administration Quetiapine Fumarate 12.5 mg 10/25/20 21:01 10/27/20 20:22 Quetiapine Fumarate 25 Mg Tablet PO 12.5 mg BEDTIME EDUARDO Administration Tamsulosin HCl 0.4 mg 10/25/20 21:01 10/27/20 20:22 Tamsulosin Hcl 0.4 Mg Capsule PO 0.4 mg BEDTIME EDUARDO Administration Labs CBC & Chem 7: 10/28/20 05:54 10/28/20 05:54 Microbiology Microbiology Results: Microbiology 10/24/20 01:46 Blood - Venous Blood Culture - Preliminary Klebsiella pneumoniae 10/24/20 01:46 Blood - Venous Blood Culture - Final Klebsiella pneumoniae 10/24/20 00:45 Urine [place] Urine Culture - Preliminary Gram negative ann Assessment and Plan (1) Sepsis: Status: Acute (2) Acute UTI: Status: Acute (3) Adrenal hypofunction: Status: Resolved Assessment and Plan: 64M presented with ams, found to ahve septic shock due to uti with bacteremia, briefly required vasopressor, shock now resolved and downgraded to medical floor septic shock poa due to UTI with esbl klebsiella bacteremia complicated by metabolic encephlaopathy and adrenal insufficiency continue zosyn, plan for 2 weeks ertapenem 1gm iv daily on discharge, plan for picc, bp stable off solucortef hypothyroid synthroid
--- NOTE | 2020-10-28 15:45 | MHC.CM.PN ---
NURSE INDUSTRIAL BOILERMAKER NOTE SPOKE WITH ZACK GONZALEZ CLEARANCE DIVER AT THE [facility]TER PER HOSPITALIST AT [facility] AWAITING FINAL CULTURE REPORTS , ID CONSULT CALLED , POSSIBILITY OF PATIENT MAY NEED PIC LINE PLACEMENT AND PRESCHOOL DIRECTOR IV ABX. ZACK REPORTED TO ME THAT THEY DO NOT HAVE THE STAFF TO NICO THIS AND WATCH HIM HE HAS PULLED OUT IVS WHILE HERE IN THE HOSPITAL , SHE REQUESTED THAT I CALL INOCENCIA MERIDA RN [phone] (MESSAGE LEFT FOR HER REQUESTING A CALLBACK . MOLST FORM IS IN THE CHART , BUT UNABLE TO FIND THE HEALTH CARE PROXY ZACK REQUESTED THAT I SEE IF HER STAFF CAN COME IN AND STAY FOR LONGER PERIODS OF TIME TO ASSIST WITH PATIENT CARE AND HELP WITH PATIENT BEING IN THE HOSPITAL ,unfamiliar environment , i spoke with screening unit registered nurse , WHOM SPOKE WITH SPRINKLER TRUCK DRIVER AND THIS WAS APPROVED , CALLED BACK TO ZACK TO INFORM HER OF THIS WELL THE STAFF NURSE INDUSTRIAL BOILERMAKER TO CNTEFREN OT FOLLOW ..
--- NOTE | 2020-10-28 16:00 | XR_ITS ---
EXAMINATION: XR CHEST CLINICAL INFORMATION: Status post PICC line placement. COMPARISON: Chest 10/24/2020 TECHNIQUE: Frontal view of the chest was obtained. FINDINGS: There is coronary megaly with increased vascularity consistent with congestion. In addition there is some patchy opacity in the right upper lobe, new since previous study. There is no pleural effusion or pneumothorax. Interval removal of left central catheter with new PICC line with its tip in the mid SVC. Severe degenerative arthritic changes left shoulder joint. XR/XR chest 1V IMPRESSION: Interval removal of left central catheter with a radiopaque line tip in the mid SVC. Cardiomegaly with CHF. New patchy opacities seen in the right upper lobe question infiltrate versus worsening congestion.
--- NOTE | 2020-10-28 16:40 | HO.PICC ---
PICC Line Insertion NPICC Diagnosis: UTI Indication: FLIGHT ENGINEER INSPECTOR IV ANTIBIOTICS Pertinent Labs: REVIEWED; PER DR BRAR, + BLOOD CULTURES DISCUSSED WITH DR MATA AND MAHIN TO PROCEED WITH PICC. PT ON APPROPRIATE ANTIBIOTIC. Technique: Following informed consent including risks, benefits and alternatives and using sterile technique including cap and mask, sterile gown, glove and drape, the RIGHT arm was prepped and draped in the usual sterile fashion of full barrier technique with CHG. Following completion of [place] Protocol the skin and soft tissues were anesthetized with 1% Lidocaine plain. Using ultrasound guidance, RIGHT CEPHALIC vein access was obtained IN SINGLE ATTEMPT. (RIGHT BASILIC VEIN ACCESS ATTEMPTED x1 PRIOR TO CEPHALIC VEIN HOWEVER PT FLINCHED AND ACCESS WAS LOST.) Over an 0.018 wire through peel-away sheath, a SINGLE LUMEN 4 [place] PICC line was positioned. Catheter length is 38 CM internal length, 0 CM external length, for a total trimmed length of 38 CM. The procedure was performed in ULTRASOUND 1. CXR OBTAINED FOR TIP VERIFICATION D/T UNDERLYING ATRIAL FLUTTER; CXR REVIEWED AT BEDSIDE BY RADIOLOGIST DR. SALGADO. Tip located in SVC PER DR Melissa SALGADO. Ultrasound was used to document vein patency and for needle entry. A formal ultrasound picture was recorded. Vascular Animal Impersonator has released the line for use and it is currently dressed with a StatLock, Tegaderm, and CHG disc. Verification has been performed for blood return and line patency. Arm Circumference: 35 CM Equipment: BioTheryX POWER PICC SOLO Catheter Type: SINGLE LUMEN PASV 4 [place]ISIAN PICC Lot #: [id number]
[2020-10-28 19:02] VITALS: BP 121/86; PULSE 54; RESP 18; TEMP 36.1; O2SAT 99
[2020-10-28] MEDS: QUEtiapine Fumarate 25 MG TABLET 12.5 MG PO (21:12)
[2020-10-28] MEDS: Tamsulosin HCL 0.4 MG CAPSULE PO (21:12)
[2020-10-28] MEDS: 0.9 % Sodium Chloride Flush 10 ML SYRINGE 5 ML IVFLUSH (21:13)
[2020-10-28 23:15] VITALS: BP 111/66; PULSE 68; RESP 19; TEMP 36.8; O2SAT 96
[2020-10-29] MEDS: Piperacillin Sodium/Tazobactam 3.375 GM in 0.9 % Sodium Chloride 50 ML IV ×4 (02:09→20:29)
[2020-10-29 04:21] VITALS: BP 114/58; PULSE 70; RESP 19; TEMP 36.7; O2SAT 99
[2020-10-29] MEDS: Levothyroxine Sodium 50 MCG TABLET PO (05:11)
[2020-10-29] MEDS: Levothyroxine Sodium 25 MCG TABLET 12.5 MCG PO (05:11)
[2020-10-29 08:04] VITALS: BP 120/78; PULSE 67; RESP 20; TEMP 35.4; O2SAT 100
[2020-10-29] MEDS: Aspirin Enteric Coated 81 MG TABLET.DR PO (09:05)
[2020-10-29] MEDS: Finasteride 5 MG TABLET PO (09:05)
[2020-10-29] MEDS: 0.9 % Sodium Chloride Flush 10 ML SYRINGE 5 ML IVFLUSH ×3 (09:06→21:52)
--- NOTE | 2020-10-29 09:08 | MHC.CM.PN ---
Addendum entered by Jessica Johnson 10/29/20 15:14: NURSE RANCH HELPER NOTE PATIENT HAS BEEN ACCEPTED TO [facility] , WHERE THEY HAVE A WOUNDS SPECIALIST THAT ROUNDS THERE 2X WEEKLY I SPOKE WITH KARI /HCP AND SHE WAS VERY ACCEPTING OF THIS FACILITY WITH WOUND CARE , I ALSO CALLED TO BRIDGET AT THE JAIL AND SHE REPORTED THAT SHE WILL SEND ME A COPY OF THE HEALTH CARE PROXY [facility] NO BED AVAILABLE KARI REQUESTED THAT I ACCEPT THE BED FOR AT [facility] MESSAGE FOR ZACK AT THE JAIL AND TRIED TO REACH INOCENCIA MESSAGE LEFT FR HER TO CONTACT ME Addendum entered by Jessica Johnson 10/29/20 14:10: CASE DIS USED WITH HOSPITALIST , PIC LINE PLACED YESTERDAY AND CHAVIRA PER ID PHYSICIAN IS ERAPENTUM 1 QM QD FOR 2 WEEKS AND WOUND CARE PER ORDERS, SPOKE WITH PATIENTS HCP KARI VELA AND INFORMED HER OF THIS , I REVIEWED WITH WER THE VARIOUS CUSTODIAL FACILITIES FIN THE AREA SHE REQUESTED THAT UI SEND REFERRALS TO [facility] , [facility], [place] AND [facility] TO START . THESE REFERRALS WERE INIATED I ALSO INFORMED ZACK COATES [phone] AND NIEVES Pisano [phone] THE NEW DISCHARGE NEED FOR IV ABX Original Note: NURSE RANCH HELPER NOTE ELECTRONIC MEDICAL RECORD REVIEWED AL0ONG WITH TELEPHONE CALL TO NIEVES PEREA NURSE WITH DEPT OF DISABILITY SERVICES UNDER DEPT OF PUBLIC HEALTH MAT PROGRAM [phone] SHE CONFIRMED THAT UNDER HIS PROGRAM HE CN NOT HAVE A PIC INE AND HAVE VNA OR FAMILY COME IN AND ADMINISTER IV ANTIBIOTICS. SHE REPORTED THAT IF PATIENT DOES REQUIRE TO GO TO A SKILLED NURISNG FACILITY THIS WOULD BE VERY DIFFICULT N HIM , (THE LAST T9IME HE WAS AT ONE IT WAS A VERY BAD EXPERIENCE AND DEVELOPED WOUNS( SHE ASKED IF THEY COULD KEEP HIM IN THE HOSPITAL AND MY RESPONSE WAS HE COULD NOT STAY HERE FOR A 4-6 WEEKS DURATION. I THEODORE REACH OUT TO THE INFECTIOUS DISEASE PHYSICIAN . RANCH HELPER TO CONTINUE TO FOLLOW FOR DISCHARGE NEEDS
[2020-10-29 12:00] VITALS: BP 116/65; PULSE 63; RESP 20; TEMP 35.7; O2SAT 98
--- NOTE | 2020-10-29 12:20 | HO.PM.IMPN ---
Subjective Subjective Date of Service: 10/29/20 Interval History: Seen in f/u for klebsieala uti with sepsis, doing better and wants to go home. Review of Systems no fever no confusion, no pain Physical Exam Vital Signs: Vital Signs: Last Vital Signs Temp 96.2 F L 10/29/20 12:00 Pulse 63 10/29/20 12:00 Resp 20 10/29/20 12:00 BP 116/65 10/29/20 12:00 Pulse Ox 98 10/29/20 12:00 Body Mass Index 35.1 General: no acute distress Resp: CTA bilateral CVS: S1,S2,RRR GI: soft, non tender, non distended Neuro: motor grossly intact Psych: appropriate affect Objective Data Current Medications Generic Name Dose Route Start Last Admin Trade Name Freq PRN Reason Stop Dose Admin Aspirin 81 mg 10/26/20 09:00 10/29/20 09:05 Aspirin Enteric Coated 81 Mg Tablet.Dr PO 81 mg DAILY EDUARDO Administration Finasteride 5 mg 10/26/20 09:00 10/29/20 09:05 Finasteride 5 Mg Tablet PO 5 mg DAILY EDUARDO Administration Piperacillin Sod/Tazobactam 50 mls @ 100 mls/hr 10/24/20 14:00 10/29/20 09:01 Sod 3.375 gm/ Sodium Chloride IV Infused Q6H EDUARDO Infusion Levothyroxine Sodium 50 mcg 10/26/20 09:00 10/29/20 05:11 Levothyroxine Sodium 50 Mcg Tablet PO 50 mcg DAILY@0600 EDUARDO Administration Levothyroxine Sodium 12.5 mcg 10/26/20 06:00 10/29/20 05:11 Levothyroxine Sodium 25 Mcg Tablet PO 12.5 mcg DAILY@0600 EDUARDO Administration Quetiapine Fumarate 12.5 mg 10/25/20 21:01 10/28/20 21:12 Quetiapine Fumarate 25 Mg Tablet PO 12.5 mg BEDTIME EDUARDO Administration Sodium Chloride 5 ml 10/28/20 21:00 10/29/20 09:06 0.9 % Sodium Chloride Flush 10 Ml Syringe IVFLUSH 5 ml TID EDUARDO Administration Tamsulosin HCl 0.4 mg 10/25/20 21:01 10/28/20 21:12 Tamsulosin Hcl 0.4 Mg Capsule PO 0.4 mg BEDTIME EDUARDO Administration Labs CBC & Chem 7: 10/28/20 05:54 10/28/20 05:54 Microbiology Microbiology Results: Microbiology 10/24/20 01:46 Blood - Venous Blood Culture - Final Klebsiella pneumoniae 10/24/20 00:45 Urine [place] Urine Culture - Final Klebsiella pneumoniae 10/24/20 01:46 Blood - Venous Blood Culture - Final Klebsiella pneumoniae Assessment and Plan (1) Sepsis: Status: Acute (2) Acute UTI: Status: Acute (3) Adrenal hypofunction: Status: Resolved Assessment and Plan: 64M presented with ams, found to ahve septic shock due to uti with bacteremia, briefly required vasopressor, shock now resolved and downgraded to medical floor septic shock poa due to UTI with esbl klebsiella bacteremia complicated by metabolic encephlaopathy and adrenal insufficiency continue zosyn, plan for 2 weeks ertapenem 1gm iv daily on discharge. Has a Picc line but can't go back to long-term so CM is working on alternate placement. hypothyroid synthroid
--- NOTE | 2020-10-29 14:42 | MHC.CLN ---
RE: CONSULT PO INTAKE 25% DIET RX: 2000DM PUREED WITH NT LIQ-APPROPRIATE STAGE U R HEEL-RECOMMEND SHIRA AND GLUCERNA TID TO INCREASE KCALS AND PROMOTE WOUND HEALING FOLLOWING
[2020-10-29 15:59] VITALS: BP 116/65; PULSE 85; RESP 18; TEMP 36.2; O2SAT 98
[2020-10-29] MEDS: Tamsulosin HCL 0.4 MG CAPSULE PO (20:30)
[2020-10-29] MEDS: QUEtiapine Fumarate 25 MG TABLET 12.5 MG PO (20:30)
[2020-10-30] VITALS: BP 119/62; PULSE 52; RESP 16; TEMP 36; O2SAT 100
[2020-10-30] MEDS: Piperacillin Sodium/Tazobactam 3.375 GM in 0.9 % Sodium Chloride 50 ML IV (02:30)
[2020-10-30 04:00] VITALS: BP 112/60; PULSE 57; RESP 14; TEMP 36.1; O2SAT 98
[2020-10-30] MEDS: Levothyroxine Sodium 25 MCG TABLET 12.5 MCG PO (06:01)
[2020-10-30] MEDS: Levothyroxine Sodium 50 MCG TABLET PO (06:01)
[2020-10-30 07:37] VITALS: BP 131/79; PULSE 68; RESP 19; TEMP 35.6; O2SAT 99
--- NOTE | 2020-10-30 08:28 | HO.PM.IMPN ---
Subjective Subjective Date of Service: 10/30/20 Interval History: Seen in f/u for klebsieala uti with sepsis, awaiting rehab placement for IV Abx. No new issues Review of Systems no fever no confusion, no pain Physical Exam Vital Signs: Vital Signs: Last Vital Signs Temp 96.0 F L 10/30/20 07:37 Pulse 68 10/30/20 07:37 Resp 19 10/30/20 07:37 BP 131/79 10/30/20 07:37 Pulse Ox 99 10/30/20 07:37 Body Mass Index 35.1 Const: Other: General: no acute distress Resp: normal respiratory efffor CVS: S1,S2,RRR GI: soft, non tender, non distended Neuro: motor grossly intact Psych: appropriate affect Objective Data Current Medications Generic Name Dose Route Start Last Admin Trade Name Freq PRN Reason Stop Dose Admin Aspirin 81 mg 10/26/20 09:00 10/29/20 09:05 Aspirin Enteric Coated 81 Mg Tablet.Dr PO 81 mg DAILY EDUARDO Administration Finasteride 5 mg 10/26/20 09:00 10/29/20 09:05 Finasteride 5 Mg Tablet PO 5 mg DAILY EDUARDO Administration Piperacillin Sod/Tazobactam 50 mls @ 100 mls/hr 10/24/20 14:00 10/30/20 03:00 Sod 3.375 gm/ Sodium Chloride IV Infused Q6H EDUARDO Infusion Levothyroxine Sodium 50 mcg 10/26/20 09:00 10/30/20 06:01 Levothyroxine Sodium 50 Mcg Tablet PO 50 mcg DAILY@0600 EDUARDO Administration Levothyroxine Sodium 12.5 mcg 10/26/20 06:00 10/30/20 06:01 Levothyroxine Sodium 25 Mcg Tablet PO 12.5 mcg DAILY@0600 EDUARDO Administration Quetiapine Fumarate 12.5 mg 10/25/20 21:01 10/29/20 20:30 Quetiapine Fumarate 25 Mg Tablet PO 12.5 mg BEDTIME EDUARDO Administration Sodium Chloride 5 ml 10/28/20 21:00 10/29/20 21:52 0.9 % Sodium Chloride Flush 10 Ml Syringe IVFLUSH 5 ml TID EDUARDO Administration Tamsulosin HCl 0.4 mg 10/25/20 21:01 10/29/20 20:30 Tamsulosin Hcl 0.4 Mg Capsule PO 0.4 mg BEDTIME EDUARDO Administration Labs CBC & Chem 7: 10/28/20 05:54 10/28/20 05:54 Microbiology Microbiology Results: Microbiology 10/24/20 01:46 Blood - Venous Blood Culture - Final Klebsiella pneumoniae 10/24/20 00:45 Urine [place] Urine Culture - Final Klebsiella pneumoniae 10/24/20 01:46 Blood - Venous Blood Culture - Final Klebsiella pneumoniae Assessment and Plan (1) Sepsis: Status: Acute (2) Acute UTI: Status: Acute (3) Adrenal hypofunction: Status: Resolved Assessment and Plan: 64M presented with ams, found to ahve septic shock due to uti with bacteremia, briefly required vasopressor, shock now resolved and downgraded to medical floor septic shock poa due to UTI with esbl klebsiella bacteremia complicated by metabolic encephlaopathy and adrenal insufficiency continue zosyn, plan for 2 weeks ertapenem 1gm iv daily on discharge. Has a Picc line but can't go back to half-way so CM is working on alternate placement. hypothyroid synthroid
--- NOTE | 2020-10-30 08:53 | PM.DS ---
DS: Providers Provider Date of admission: 10/24/20 05:04 Primary care physician: Jason Barillas MD Consults: 10/24/20 07:25 Consult to Infectious Diseases Routine Consulting Provider: Juliana Rodriguez Reason for consultation: ZYVOX 10/26/20 11:45 Consult to Wound Care Provider Routine Consulting Provider: Nathan French Reason for consultation: heel ulcer 10/28/20 09:57 Consult to Infectious Diseases Routine Consulting Provider: Juliana Rodriguez Reason for consultation: ESBL klebsiells urine and bacteremia DS: Diagnosis Discharge Diagnosis (1) Sepsis: Status: Resolved (2) Acute UTI: Status: Resolved (3) Adrenal hypofunction: Status: Resolved DS: Medications Discharge Medications Home Medications: Home Medications Medication Instructions Recorded Confirmed levothyroxine 50 mcg PO DAILY 08/23/20 10/24/20 multivitamin 1 tab PO DAILY 08/23/20 10/24/20 nystatin 1 applic TOPICAL BID 08/23/20 10/24/20 vitamin B complex 1 cap PO QAM 08/23/20 10/24/20 acetaminophen 650 mg PO Q4H PRN 08/24/20 10/24/20 aspirin 81 mg PO DAILY 08/24/20 10/24/20 clotrimazole 1 applic TOPICAL BID PRN 08/24/20 10/24/20 zinc oxide 1 applic TOPICAL BID PRN 08/24/20 10/24/20 ammonium lactate 1 applic TOPICAL BID 08/30/20 10/24/20 Previous Rx's Medication Instructions Recorded levothyroxine 12.5 mcg PO DAILY@0600 #30 tab 08/30/20 quetiapine 12.5 mg PO BEDTIME #30 tab 08/30/20 finasteride 5 mg tablet 5 mg PO DAILY 90 Days #90 tab 09/19/20 tamsulosin 0.4 mg capsule 0.4 mg PO BEDTIME 90 Days #90 cap 09/19/20 DS: Summary Hospital Course Hospital Course: Date of admission: 10/24/20 Chief Complaint: Altered mental status 64-year-old male with a past medical history of hypertension, hypothyroid, intellectual disability, DVT no longer on warfarin, type 2 diabetes, anemia, morbid obesity and multiple falls who lives in a long term. He was brought in by ambulance to the emergency department late last night as he has become more and more altered and was hypothermic, this began yesterday morning at 09:00. 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 In the ED, the patients VSS were temp 87.1F, HR 50, BP 80/40 RR 21, O2 sat 99% on RA, labs were notable for pancytopenia, WBC 2.6, RBC 3.10 and platelets 35. APTT 64.6, K 5.8 and + UTI. Hospital course: Essenatially, the patient presented wth altered mental status and hypotension and found to have UTI and possible celluliitis and septic shock and was admitted to the ICU where where he required vasopressor and IV steroid for possible component of adrenal insuficiency. Blood cultures later grew Klebsiella pneumoniae and urine culture grew Enteroccocus Faecalis--see culture and sensitive. Initially was on Vancomycin and Zosyn was seen by ID is recommended to have Ertapenem for 2 weeks. A PICC line is palced for this and will go rehab as not able to go back to long term at this time. He will go to short term rehab for less than 30 days Time Spent with Patient Time attestation: Total time spent providing and/or coordinating discharge services: Physical Exam Vital Signs: Vital Signs: Last Vital Signs Temp 96.0 F L 10/30/20 07:37 Pulse 68 10/30/20 07:37 Resp 19 10/30/20 07:37 BP 131/79 10/30/20 07:37 Pulse Ox 99 10/30/20 07:37 Body Mass Index 35.1 General: no acute distress Resp: normal respiratory efffor CVS: S1,S2,RRR GI: soft, non tender, non distended Neuro: motor grossly intact Psych: appropriate affect DS: Data Data Completed and Pending Completed studies during hospitalization [Text1]: Procedures Insertion of Infusion Device into Superior Vena Cava, Percutaneous Approach (08/24/20) Introduction of Vasopressor into Central Vein, Percutaneous Approach (08/24/20) Ultrasonography of Superior Vena Cava, Guidance (08/24/20) Labs on day of discharge: .Blood Culture (First) Final 10/28/20-1003 Gram stain results: Gram-negative rods 2 sets positive/2 sets drawn Gram stain results from blood cultures should be interpreted with caution. A number of factors, including the presence of antibiotics in the specimen and the effect of growth in enriched liquid culturing medium, may cause organisms to react differently with the staining reagents. These factors occasionally cause a Gram-negative organism to stain Gram-positive and vice versa. Results of the initial Gram stain from the culture broth must always be correlated with growth on agar. Organism 1 Klebsiella pneumoniae ESBL Note: NOTE: Extended-Spectrum Beta-Lactamase enzyme present Results of Blood Culture gram stain called to and read back by JUNE at 1417 on 10/24/20 by NICHOLAS. 10/28/20;PER ,PIP/CHASE ADDED TO SUSCEPTIBILITY REPORT Kleb pneum M.I.C. RX --------- --- Ampicillin >=32 R Cefazolin >=64 R Extended Spectrum Beta Lactam POS + Ceftriaxone 32 R Ertapenem <=0.5 S Gentamicin >=16 R Levofloxacin >=8 R Trimethoprim/Sulfamethoxazole >=320 R Piperacillin/Tazobactam 16 S Results of Blood Culture gram stain called to and read back by JUNE at 1418 on 10/24/20 by NICHOLAS. Urine Culture Final 08/27/20-0842 Organism 1 Enterococcus faecalis Quant 10,000 to 50,000 cfu/mL * * This is a Vancomycin-resistant Enterococcus * * E faecalis M.I.C. RX --------- --- Ampicillin <=2 S Levofloxacin >=8 R Linezolid 2 S Nitrofurantoin <=16 S Tetracycline >=16 R Tigecycline <=0.12 S Vancomycin R Discharge Plan Discharge Anticipated Discharge Date/Time: 10/30/20 09:07 Patient Disposition: Xfer SNF Referrals: [facility] [Other] [facility] [Outside] (NEW REFERRAL TO [facility] FOR STR FOR PIC LINE IV ERAPENTUM QD X 2 WEEKS, AND WOUND ASSESSMENT AND CARE BY MD AT THE [facility] INFORMED [facility] WOUND CARE PHYLLIS CROWDER THAT PATIENT IS GOING TO [facility] . SHE AND CARE ONE HAVE PHONE NUMBERS FOR COMMUNICATION AND FOLLOW UP LONGTERM [facility] AND [facility] PRO ARE AWARE OF DISCHARGE TO [facility] AND HAVE NUMBERS TO CONTACT THEM WELL Cre one to arrange for [facility]) Jason Barillas MD [Primary Care Provider] - Discharge Medications: New ertapenem 1 gram recon soln 1 g IM Q24H Qty: 13 RF: 0 Continued levothyroxine 50 mcg tablet 50 mcg PO DAILY RF: 0 multivitamin Tablet 1 tab PO DAILY RF: 0 nystatin 100,000 unit/gram powder 1 applic topical BID RF: 0 vitamin B complex Capsule 1 cap PO QAM RF: 0 aspirin 81 mg Tablet,Delayed Release (Dr/Ec) 81 mg PO DAILY RF: 0 acetaminophen 650 mg Tablet 650 mg PO Q4H PRN (Reason: Pain (Scale Score 1-3)) RF: 0 clotrimazole 1 % Cream 1 applic TOPICAL BID PRN (Reason: Rash) RF: 0 zinc oxide Cream 1 applic TOPICAL BID PRN (Reason: Rash) RF: 0 ammonium lactate 12 % Cream 1 applic TOPICAL BID RF: 0 quetiapine 25 mg Tablet 12.5 mg PO BEDTIME Qty: 30 RF: 0 levothyroxine 25 mcg Tablet 12.5 mcg PO DAILY@0600 Qty: 30 RF: 0 finasteride 5 mg tablet 5 mg PO DAILY 90 Days Qty: 90 RF: 1 tamsulosin [Flomax] 0.4 mg capsule 0.4 mg PO BEDTIME 90 Days Qty: 90 RF: 0 Discharge Orders: Discharge Order (Routine); Ordered 10/30/20 Ordered By: Alfonzo Montenegro Diet: advance to usual diet Activity on Discharge: As tolerated Discharge Date/Time: 10/30/20 16:04 Visit Report Forms: Patient Portal Discharge page Care Plan Goals: Fully treat sepsis Health Concerns: sepsis, chronic wound Plan of Treatment: complete ERtapenem for 2 weeks
[2020-10-30] MEDS: Ertapenem Sodium 1 GM in 0.9 % Sodium Chloride 50 ML IV (10:49)
[2020-10-30] MEDS: Aspirin Enteric Coated 81 MG TABLET.DR PO (10:54)
[2020-10-30] MEDS: 0.9 % Sodium Chloride Flush 10 ML SYRINGE 5 ML IVFLUSH (10:54)
[2020-10-30] MEDS: Finasteride 5 MG TABLET PO (10:54)
[2020-10-30 11:52] VITALS: BP 135/48; PULSE 51; RESP 17; TEMP 36.2; O2SAT 99
[2020-10-30 12:35] LABS: COVID-19 Test Negative (Negative); IDNOW Serial# 9DD0AD1C
--- NOTE | 2020-10-30 14:05 | MHC.CM.PN ---
NURSE LADLE REPAIRER NOTE ELECTRONIC DYNAMOMETER TUNER AWARE OF PATIENTS DISPOSITION TO [facility] FOR IV ABX /PIC LINE AND WOUND CARE . I CALLED AND SPOKE WITH KARI HIS SISTER AND HCP SHE IS AWARE , IMM REVIEWED WITH HER AND TO BE SENT VIA CERTIFIED MAIL TO HER HOME ADDRESS, I ALSO CNC MILL AND LATHE OPERATOR PATIENT DISPOSITION AND TIME FOR TRANSPORT BY [facility] GOING TO [facility] REVIEWED ALONG WITH CASE DISCUSSED ON MULTIPLE DISCIPLINARY ROUNDS AND WITH STAFF NURSE AND T/C TO ZACK AT THE [facility] TO INFORM HER OF THE ABOVE DISCHARGE PLANS. T/C TO FROM [facility] [phone] SHE WILL INFORM INOCENCIA OF THE DISCHARGE DISPOSITION AND TIME OF TRANSPORT . ON THE DISCHARGE SUMMARY NOTED ANTICIPATE LENGTH OF STAY LESS THAN 30 DAYS SPOKE WITH ANANTH LIAISON FOR CARE [facility] SENT DIANE ALEXIS FOR COVID NEGATIVE TEST 10/30/2020 AND DISCHARGE SUMMARY WITH ANTICIPATED STAY LESS THAN 30 DAYS DISCHARGE PLAN TO [facility] SHORT TERM REHAB FOR IV ABX/PIC LINE nd wound assessment return to [facility] once completion of iv abx and return back to the [facility] wound [facility] (staff from the [facility] home t bring in his clothes from the [facility] )
--- NOTE | 2020-10-30 16:00 | PC.NURSE ---
LATE CHARTING FOR 8AM SHIFT ASSESSMENT. ASSESSMENT NEG EXCEPT FOR INC OF URINE. UNSTAGEABLE WOUND TO RIGHT HEEL . DSG CHANGED ANT 1300 TODAY ORDERED. WOUND BED HAS BLACK ESCHAR.
== END 2020-10-30 16:04 | disposition skilled nursing facility (03) | DRG 871 ==
LOC: HO.ED 10-24 03:53 → HO.ICU 10-24 06:02 → HO.S3 10-25 18:30
PROVIDERS: Internal Medicine; Internal Medicine Cardiovascular Disease; Physician Assistant; Admitting Provider Physician Assistant; Emergency Provider Emergency Medicine; PCP Internal Medicine; Visit Provider Internal Medicine
DX: A41.59 Other Gram-negative sepsis (principal); R65.21 Severe sepsis with septic shock; G93.41 Metabolic encephalopathy; N13.8 Other obstructive and reflux uropathy; D61.818 Other pancytopenia; L03.115 Cellulitis of right lower limb; N39.0 Urinary tract infection, site not specified; E27.40 Unspecified adrenocortical insufficiency; E87.5 Hyperkalemia; E03.9 Hypothyroidism, unspecified; E66.01 Morbid (severe) obesity due to excess calories; Z20.828 Contact with and (suspected) exposure to other viral communicable diseases; Z68.35 Body mass index [BMI] 35.0-35.9, adult; F79 Unspecified intellectual disabilities; Z86.718 Personal history of other venous thrombosis and embolism; B96.1 Klebsiella pneumoniae [K. pneumoniae] as the cause of diseases classified elsewhere; N40.1 Benign prostatic hyperplasia with lower urinary tract symptoms; I87.2 Venous insufficiency (chronic) (peripheral); L89.610 Pressure ulcer of right heel, unstageable; Z79.82 Long term (current) use of aspirin; Z79.890 Hormone replacement therapy; Z79.899 Other long term (current) drug therapy
CPT/HCPCS: 0241U; 36415; 36573; 70450; 71045; 71260; 73701; 74177; 80048; 80053; 80202; 81001; 82803; 82947; 83605; 83735; 83880; 84100; 84443; 85025; 85610; 85652; 85730; 86140; 87040; 87077; 87086; 87088; 87186; 87635; 93005; 96361; 96365; 96366; 96367; 96372; 96375; 99285; 99291; C1751; C1758; J1335; J1956; J2020; J2543; J3370; J3475; Q9967

== ENCOUNTER 2020-12-02 06:37 | Emergency (ER) | payer MEDICARE, MEDICAID, SELFPAY ==
[2020-12-02 06:43] VITALS: BP 100/71; PULSE 78; RESP 18; TEMP 36.7; O2SAT 99; BMI 36.6
--- NOTE | 2020-12-02 06:47 | ED.FALL ---
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) Fall from: out of bed (rolled) Fall witnessed: no Place fall occurred: [facility] Loss of consciousness: none Prolonged down time: no Symptoms prior to fall: none Context: tripped/slipped (is not supposed to get up and rolled out of bed on his own) Related Data Home Medications Medication Instructions Recorded Confirmed levothyroxine 50 mcg PO DAILY 08/23/20 10/24/20 multivitamin 1 tab PO DAILY 08/23/20 10/24/20 nystatin 1 applic TOPICAL BID 08/23/20 10/24/20 vitamin B complex 1 cap PO QAM 08/23/20 10/24/20 acetaminophen 650 mg PO Q4H PRN 08/24/20 10/24/20 aspirin 81 mg PO DAILY 08/24/20 10/24/20 clotrimazole 1 applic TOPICAL BID PRN 08/24/20 10/24/20 zinc oxide 1 applic TOPICAL BID PRN 08/24/20 10/24/20 ammonium lactate 1 applic TOPICAL BID 08/30/20 10/24/20 Previous Rx's Medication Instructions Recorded levothyroxine 12.5 mcg PO DAILY@0600 #30 tab 08/30/20 quetiapine 12.5 mg PO BEDTIME #30 tab 08/30/20 finasteride 5 mg tablet 5 mg PO DAILY 90 Days #90 tab 09/19/20 tamsulosin 0.4 mg capsule 0.4 mg PO BEDTIME 90 Days #90 cap 09/19/20 ertapenem 1 g IM Q24H #13 ea 10/30/20 Allergies Allergy/AdvReac Type Severity Reaction Status Date / Time No Known Allergies Allergy Verified 08/24/20 07:57 [No Known Allergies*] Review of Systems Review of Systems: Constitutional : No Fever, No Chills ENT/Mouth : No Ear Pain, No Hoarseness, No sore throat Eyes: No Eye Pain, No Swelling, No Redness, No Foreign Body Cardiovascular : No Chest Pain, No SOB Respiratory : No Cough, No Dyspnea Gastrointestinal : No Nausea, No Vomiting, No Diarrhea, No abdominal Pain Genitourinary : No Dysuria, No Hematuria Musculoskeletal : no joint pain, No Myalgias, No Joint Swelling Skin : No Skin lacerations, No rash Neuro : No Weakness, No Numbness, No Loss of Consciousness, No Dizziness, No Headache Psych : No Anxiety/Panic, No Depression Heme/Lymph: no easy bruising, no Lymphadenopathy Endocrine : No Polyuria, No Polydipsia All other systems reviewed and are negative [facility] Past Medical History Attestation statement: The following information was validated with the patient. Medical History Adrenal hypofunction Anemia BPH w urinary obs/LUTS Diabetes type 2, controlled DVT (deep venous thrombosis) Hypertension Hypothyroidism Intellectual disability Morbid obesity Pancytopenia Pressure ulcer of right heel, unstageable Tegretol toxicity Urinary retention with incomplete bladder emptying Venous insufficiency of both lower extremities VRE (vancomycin resistant enterococcus) culture positive Weak urinary stream Social History Social History Household Members: Other Housing: Other Alcohol intake: unknown Smoking Status: Never smoker Second Hand Smoke Exposure: No Advance Directives Date on File: 08/16/20 service: No Current occupational status: disabled Physical Exam Vital Signs: Vital Signs: Last Vital Signs Temp 98.0 F 12/02/20 06:43 Pulse 78 12/02/20 06:43 Resp 18 12/02/20 06:43 BP 100/71 12/02/20 06:43 Pulse Ox 99 12/02/20 06:43 Body Mass Index 36.6 Appearance: Alert. Oriented X3. No acute distress. Eyes: Pupils equal, round and reactive to light. ENT: Pharynx normal. Neck: Normal inspection. Neck supple. no midline ttp CVS: Normal heart rate and rhythm. Pulses normal. Respiratory: No respiratory distress. Breath sounds normal. Abdomen: Soft and nontender. (obese) Skin: Skin warm and dry. Normal skin color. Normal skin turgor. Extremities: + pitting lower ext edema 1-2+, large dressings in place are c/d/i, ulcers noted on heels but no fouul drainage or swelling noted. no pain with ROM testing or axial loading Neuro: Oriented X 3. No motor deficit. No sensory deficit. MDM - Fall MDM Narrative Medical decision making narrative: 64 yo male with multiple medical problems here with roll out of bed - no AC therapy, no injuries reported, has no complaints eager to go home, stable VS, not toxic, no need for imaging at this time, stable for DC back to SNF Discharge Plan Discharge Clinical Impression: Fall Qualifiers: Encounter type: initial encounter Qualified Code(s): W19.XXXA - Unspecified fall, initial encounter Patient Disposition: Home, Self-Care Instructions: Fall Prevention (ED) Additional Instructions: return to ED for any worsening symptoms or concerns Prescriptions: No Action levothyroxine 50 mcg tablet 50 mcg PO DAILY RF: 0 multivitamin Tablet 1 tab PO DAILY RF: 0 nystatin 100,000 unit/gram powder 1 applic topical BID RF: 0 vitamin B complex Capsule 1 cap PO QAM RF: 0 aspirin 81 mg Tablet,Delayed Release (Dr/Ec) 81 mg PO DAILY RF: 0 acetaminophen 650 mg Tablet 650 mg PO Q4H PRN (Reason: Pain (Scale Score 1-3)) RF: 0 clotrimazole 1 % Cream 1 applic TOPICAL BID PRN (Reason: Rash) RF: 0 zinc oxide Cream 1 applic TOPICAL BID PRN (Reason: Rash) RF: 0 ammonium lactate 12 % Cream 1 applic TOPICAL BID RF: 0 quetiapine 25 mg Tablet 12.5 mg PO BEDTIME Qty: 30 RF: 0 levothyroxine 25 mcg Tablet 12.5 mcg PO DAILY@0600 Qty: 30 RF: 0 ertapenem 1 gram recon soln 1 g IM Q24H Qty: 13 RF: 0 finasteride 5 mg tablet 5 mg PO DAILY 90 Days Qty: 90 RF: 1 tamsulosin [Flomax] 0.4 mg capsule 0.4 mg PO BEDTIME 90 Days Qty: 90 RF: 0
--- NOTE | 2020-12-02 07:25 | PC.NURSE ---
this rn [facility] and spoke with leena ([phone]) and she was updated on pt status and disposition of d/c home. pt to be transferred via ambulance. pt does not ambulate, w/c bound per leena.
--- NOTE | 2020-12-02 07:37 | PC.NURSE ---
georges mascorro ([phone]) from pt's [facility] called and was updated on pt's status. pt to be d/c'd home.
[2020-12-02 09:31] VITALS: BP 94/41; PULSE 79; RESP 16; O2SAT 99
== END 2020-12-02 09:33 | disposition home or self-care (01) ==
LOC: HO.ED 06:58
PROVIDERS: Emergency Provider Emergency Medicine
DX: Z71.1 Person with feared health complaint in whom no diagnosis is made (principal); Z91.81 History of falling; E11.9 Type 2 diabetes mellitus without complications; I10 Essential (primary) hypertension
CPT/HCPCS: 99284

== ENCOUNTER 2020-12-16 10:08 | Emergency (ER) | payer MEDICARE, MEDICAID, SELFPAY ==
[2020-12-16] VITALS (7 sets, daily range): BP systolic 100–118; BP diastolic 46–68; PULSE 62–102; RESP 16–20; TEMP 37.1; O2SAT 99–100; BMI 37.8
--- NOTE | 2020-12-16 10:27 | XR_ITS ---
EXAMINATION: CHEST AND RIGHT FOOT. CLINICAL INFORMATION: Chest pain. Right foot pain. COMPARISON: Chest 10/28/2020 TECHNIQUE: Chest one view. Right foot 2 views. FINDINGS: CHEST: Both lungs are hypoexpanded but clear. The heart size and pulmonary vascularity is normal. No gross bony abnormality seen. RIGHT FOOT: There is moderate size calcaneal heel and retrocalcaneal enthesophytes. The ankle mortise and subtalar joints are normal. No visible acute fracture, dislocation or subluxation seen. There is moderate dorsal distal soft tissue swelling. There is soft tissue ulceration along the posterior healed but no erosive changes of the calcaneum. XR/XR chest 1V IMPRESSION: Hypoexpanded lungs otherwise unremarkable chest. No visible acute fracture or dislocation right foot. There is diffuse osteopenia with moderate size calcaneal heel and retrocalcaneal enthesophytes. There is soft tissue ulceration along the posterior healed but no erosive changes involving the calcaneus.
--- NOTE | 2020-12-16 10:27 | XR_ITS ---
EXAMINATION: CHEST AND RIGHT FOOT. CLINICAL INFORMATION: Chest pain. Right foot pain. COMPARISON: Chest 10/28/2020 TECHNIQUE: Chest one view. Right foot 2 views. FINDINGS: CHEST: Both lungs are hypoexpanded but clear. The heart size and pulmonary vascularity is normal. No gross bony abnormality seen. RIGHT FOOT: There is moderate size calcaneal heel and retrocalcaneal enthesophytes. The ankle mortise and subtalar joints are normal. No visible acute fracture, dislocation or subluxation seen. There is moderate dorsal distal soft tissue swelling. There is soft tissue ulceration along the posterior healed but no erosive changes of the calcaneum. XR/XR foot RT min 3V IMPRESSION: Hypoexpanded lungs otherwise unremarkable chest. No visible acute fracture or dislocation right foot. There is diffuse osteopenia with moderate size calcaneal heel and retrocalcaneal enthesophytes. There is soft tissue ulceration along the posterior healed but no erosive changes involving the calcaneus.
--- NOTE | 2020-12-16 10:31 | ED_ITS ---
HPI - General Adult General Chief complaint: Wound/Laceration Stated complaint: failure to thrive Time Seen by Provider: 12/16/20 10:11 Source: patient and EMS Mode of arrival: EMS History of Present Illness HPI narrative: 64-year-old male with a past medical history of HTN, hypothyroid, intellectual disability, DVT no longer on warfarin, diabetes, anemia, morbid obesity, BIBA from a assisted for failure to thrive, and patient refusing dressing changes to bilateral LE wounds. Of note patient recently admitted to our ICU for septic shock due to UTI, discharged on 10/30. Patient reports would like to get his dressings changed and go home, denies other complaints including CP/SOB, abdominal pain, nausea/vomiting, fever/chills Related Data Home Medications Medication Instructions Recorded Confirmed multivitamin 1 tab PO DAILY 08/23/20 12/16/20 aspirin 81 mg PO DAILY 08/24/20 12/16/20 clotrimazole 1 appl TOPICAL BID PRN 12/16/20 12/16/20 ferrous sulfate 325 mg PO DAILY 12/16/20 12/16/20 levothyroxine 50 mcg PO DAILY 12/16/20 12/16/20 Previous Rx's Medication Instructions Recorded levothyroxine 12.5 mcg PO DAILY@0600 #30 tab 08/30/20 quetiapine 12.5 mg PO BEDTIME #30 tab 08/30/20 finasteride 5 mg tablet 5 mg PO DAILY 90 Days #90 tab 09/19/20 tamsulosin 0.4 mg capsule 0.4 mg PO BEDTIME 90 Days #90 cap 09/19/20 nitrofurantoin monohyd/m-cryst 100 mg PO Q12H 7 Days #14 cap 12/16/20 [Macrobid] Allergies Allergy/AdvReac Type Severity Reaction Status Date / Time No Known Allergies Allergy Verified 08/24/20 07:57 [No Known Allergies*] Review of Systems Review of Systems: Constitutional: No Weight loss, No Fever, No Chills Cardiovascular: No Chest Pain, No SOB, +chronic LE Edema Respiratory: No Cough Gastrointestinal: No Nausea, No Vomiting, No Diarrhea, No Constipation, No Abdominal pain Genitourinary: No irregular bleeding, No Dysuria, No Urinary Frequency, No Hemat uria Musculoskeletal: No joint pain, No Myalgias, No Joint Swelling Skin: +chronic LE venous stasis changes Neuro: No Weakness, No Numbness Yes all other systems are reviewed and are negative [facility] Past Medical History Attestation statement: The following information was validated with the patient. Medical History (Updated 12/16/20 @ 17:20 by Jason Carvajal MD) Adrenal hypofunction Anemia BPH w urinary obs/LUTS Decubitus ulcer, heel Diabetes type 2, controlled DVT (deep venous thrombosis) Hypertension Hypothyroidism Intellectual disability Morbid obesity Pancytopenia Pressure ulcer of right heel, unstageable Tegretol toxicity Urinary retention with incomplete bladder emptying Venous insufficiency of both lower extremities VRE (vancomycin resistant enterococcus) culture positive Weak urinary stream Social History Social History Household Members: Other Housing: Other Alcohol intake: never Smoking Status: Never smoker Smoked in Last 30 Days: No Second Hand Smoke Exposure: No Use of substances other than those prescribed or required for medical reasons: No Advance Directives: Yes Advance Directives on File: Yes Advance Directives Date on File: 08/16/20 service: No Current occupational status: disabled Physical Exam Vital Signs: Vital Signs: Last Vital Signs Temp 98.7 F 12/16/20 10:13 Pulse 62 12/16/20 12:30 Resp 16 12/16/20 10:13 BP 109/68 12/16/20 12:30 Pulse Ox 100 12/16/20 12:30 Body Mass Index 37.8 Const: General: cooperative, alert and awake Nutritional Appearance: overweight Orientation/consciousness: patient oriented x3 Limitations: no limitations HENMT: Head: Yes normal to inspection Ears: hearing grossly normal bilaterally General nose exam: Normal external nose present Face and sinus: Yes normal facial exam Eyes: General: appearance normal, both eyes and all related structures EOM: EOMs intact bilaterally Neck: Neck: Yes normal visual inspection Resp: Effort & Inspection: normal respiratory effort Auscultation: clear to auscultation bilaterally and no wheezes Cardio: Rate: regular rate Heart sounds: S1 normal heart sound present and S2 normal heart sound present GI: Inspection: Yes normal to inspection Palpation (GI): Soft to palpation, nontender, no guarding and not rigid Skin: Rashes: no rashes Neuro: General: patient oriented x3, tone normal and moves all extremities Extrem: Other: Chronic bilateral lower extremity venous stasis changes, swelling/edema and erythematous wounds. Dressings soaked, slight clear drainage from bilateral wounds. Right heel noted to have necrotic ulcer to calcaneus which from prior notes appears chronic Course Course Course Narrative: * H&H at baseline. No leukocytosis. Lactic negative * Chest x-ray showing hypoexpanded lungs otherwise unremarkable * Foot XR with No visible fracture, diffuse osteopenia with moderate calcaneal heel and retrocalcaneal enthesophytes, soft tissue ulceration along the posterior heel but no erosive changes involving the calcaneus * 1238- UA infected > empiric IV Zosyn ordered due to patient's prior urine culture results. Consulted Dr. Carvajal for input on LE wounds * -Dr. Carvajal, surgery evaluated patient in the ED and states patient can see him in the office, wounds appear chronic. Case management is working on visiting nurse services for wound care as patient resides in assisted 1700--ED care transferred to PHYLLIS Aguirre pending case management placement/home VNA Medical Decision Making MDM Narrative Medical decision making narrative: 64-year-old male with a past medical history of HTN, hypothyroid, intellectual disability, DVT no longer on warfarin, diabetes, anemia, morbid obesity, BIBA from a assisted for failure to thrive, and patient refusing dressing changes to bilateral LE wounds. On exam VSS, NAD, physical exam as above. Concern for bilateral LE chronic wounds/skin changes vs overlying cellulitits vs necrotic pressure ulcer. Rule out other infectious etiology including UTI/dehydration. Low concern for severe sepsis at this time Plan: EKG, labs, UA, CXR, foot x-ray, lactic/blood cultures, re-evaluate Lab Data Result diagrams: 12/16/20 10:38 12/16/20 10:38 Labs: Lab Results 12/16/20 12/16/20 12/16/20 Range/Units 10:38 10:38 10:38 WBC 7.3 (4.8-10.8) X10*3/uL RBC 3.72 L D (4.60-5.80) X10*6/uL Hgb 9.9 L (14.0-18.0) g/dl Hct 31.7 L (42-52) % MCV 85.2 (80-98) fL MCH 26.6 L (27.0-33.0) pg MCHC 31.2 (31.0-36.0) g/dl RDW 16.1 H (11.0-16.0) % Plt Count 182 D (160-400) X10*3/uL MPV 9.2 L (9.4-12.4) fL Immature Gran % (Auto) 0.4 (0.0-0.4) % Neut % (Auto) 76.8 H (45-73) % Lymph % (Auto) 10.7 L (20-40) % [place] % (Auto) 9.9 (2-11) % Eos % (Auto) 2.1 (0-4) % Baso % (Auto) 0.1 (0-2) % Lymph # (Auto) 0.8 L (1.2-4.9) X10*3/uL [place] # (Auto) 0.7 (0.1-1.2) X10*3/uL Eos # (Auto) 0.2 (0.0-0.4) X10*3/uL Baso # (Auto) 0.0 (0.0-0.2) X10*3/uL Abs Immat Gran (auto) 0.03 (0.00-0.03) X10*3/uL Absolute Neuts (auto) 5.6 (2.0-8.3) X10*3/uL Absolute Nucleated RBC 0.000 (0.0-0.012) X10*3/uL Nucleated RBC % (auto) 0.0 (0.0-0.2) /100WBC PT 12.0 (10.8-13.0) SEC INR 1.0 (0.9-1.1) APTT 48.0 H (24.1-38.0) SEC Sodium (135-145) mmol/L Potassium (3.3-5.1) mmol/L Chloride (96-108) mmol/L Carbon Dioxide (22-29) mmol/L Anion Gap (12-20) BUN (9-16) mg/dL Creatinine (0.5-1.4) mg/dL Estim Creat Clear Calc Estimated GFR Random Glucose (60-115) mg/dL Lactic Acid (0.5-2.0) mmol/L Calcium (8.4-10.2) mg/dL Magnesium (1.6-2.6) mg/dL Total Bilirubin (0.0-1.0) mg/dL Direct Bilirubin (0.0-0.5) mg/dL AST (5-37) U/L ALT (0-40) U/L Alkaline Phosphatase (39-117) U/L B-Natriuretic Peptide (<100) pg/mL Total Protein (6.5-8.0) g/dL Albumin (3.5-5.0) g/dL Urine Color Urine Appearance Urine pH (5.0-8.0) Ur Specific [place] (1.005-1.025) Urine Protein (NEG-TRACE) MG/DL Urine Glucose (UA) (NEG) MG/DL Urine Ketones (NEG) MG/DL Urine Blood (NEG) Urine Nitrite (NEG) Ur Leukocyte Esterase (NEG) Urine RBC (0) /HPF Urine WBC (0-4) /HPF Ur Squamous Epith Cells /LPF Urine Bacteria /LPF COVID-19 (AFSANEH) Negative (Negative) COVID-19 Clin Com See Note 12/16/20 12/16/20 12/16/20 Range/Units 10:38 10:38 10:47 WBC (4.8-10.8) X10*3/uL RBC (4.60-5.80) X10*6/uL Hgb (14.0-18.0) g/dl Hct (42-52) % MCV (80-98) fL MCH (27.0-33.0) pg MCHC (31.0-36.0) g/dl RDW (11.0-16.0) % Plt Count (160-400) X10*3/uL MPV (9.4-12.4) fL Immature Gran % (Auto) (0.0-0.4) % Neut % (Auto) (45-73) % Lymph % (Auto) (20-40) % [place] % (Auto) (2-11) % Eos % (Auto) (0-4) % Baso % (Auto) (0-2) % Lymph # (Auto) (1.2-4.9) X10*3/uL [place] # (Auto) (0.1-1.2) X10*3/uL Eos # (Auto) (0.0-0.4) X10*3/uL Baso # (Auto) (0.0-0.2) X10*3/uL Abs Immat Gran (auto) (0.00-0.03) X10*3/uL Absolute Neuts (auto) (2.0-8.3) X10*3/uL Absolute Nucleated RBC (0.0-0.012) X10*3/uL Nucleated RBC % (auto) (0.0-0.2) /100WBC PT (10.8-13.0) SEC INR (0.9-1.1) APTT (24.1-38.0) SEC Sodium 137 (135-145) mmol/L Potassium 4.7 (3.3-5.1) mmol/L Chloride 102 (96-108) mmol/L Carbon Dioxide 30 H (22-29) mmol/L Anion Gap 10 L (12-20) BUN 16 (9-16) mg/dL Creatinine 0.68 (0.5-1.4) mg/dL Estim Creat Clear Calc 132.1 Estimated GFR > 60 Random Glucose 141 H (60-115) mg/dL Lactic Acid 0.8 (0.5-2.0) mmol/L Calcium 10.4 H D (8.4-10.2) mg/dL Magnesium 1.9 (1.6-2.6) mg/dL Total Bilirubin 0.5 (0.0-1.0) mg/dL Direct Bilirubin 0.2 (0.0-0.5) mg/dL AST 22 D (5-37) U/L ALT 26 (0-40) U/L Alkaline Phosphatase 103 (39-117) U/L B-Natriuretic Peptide 42 (<100) pg/mL Total Protein 6.4 L (6.5-8.0) g/dL Albumin 3.6 (3.5-5.0) g/dL Urine Color Urine Appearance Urine pH (5.0-8.0) Ur Specific [place] (1.005-1.025) Urine Protein (NEG-TRACE) MG/DL Urine Glucose (UA) (NEG) MG/DL Urine Ketones (NEG) MG/DL Urine Blood (NEG) Urine Nitrite (NEG) Ur Leukocyte Esterase (NEG) Urine RBC (0) /HPF Urine WBC (0-4) /HPF Ur Squamous Epith Cells /LPF Urine Bacteria /LPF COVID-19 (AFSANEH) (Negative) COVID-19 Clin Com 12/16/20 Range/Units 12:12 WBC (4.8-10.8) X10*3/uL RBC (4.60-5.80) X10*6/uL Hgb (14.0-18.0) g/dl Hct (42-52) % MCV (80-98) fL MCH (27.0-33.0) pg MCHC (31.0-36.0) g/dl RDW (11.0-16.0) % Plt Count (160-400) X10*3/uL MPV (9.4-12.4) fL Immature Gran % (Auto) (0.0-0.4) % Neut % (Auto) (45-73) % Lymph % (Auto) (20-40) % [place] % (Auto) (2-11) % Eos % (Auto) (0-4) % Baso % (Auto) (0-2) % Lymph # (Auto) (1.2-4.9) X10*3/uL [place] # (Auto) (0.1-1.2) X10*3/uL Eos # (Auto) (0.0-0.4) X10*3/uL Baso # (Auto) (0.0-0.2) X10*3/uL Abs Immat Gran (auto) (0.00-0.03) X10*3/uL Absolute Neuts (auto) (2.0-8.3) X10*3/uL Absolute Nucleated RBC (0.0-0.012) X10*3/uL Nucleated RBC % (auto) (0.0-0.2) /100WBC PT (10.8-13.0) SEC INR (0.9-1.1) APTT (24.1-38.0) SEC Sodium (135-145) mmol/L Potassium (3.3-5.1) mmol/L Chloride (96-108) mmol/L Carbon Dioxide (22-29) mmol/L Anion Gap (12-20) BUN (9-16) mg/dL Creatinine (0.5-1.4) mg/dL Estim Creat Clear Calc Estimated GFR Random Glucose (60-115) mg/dL Lactic Acid (0.5-2.0) mmol/L Calcium (8.4-10.2) mg/dL Magnesium (1.6-2.6) mg/dL Total Bilirubin (0.0-1.0) mg/dL Direct Bilirubin (0.0-0.5) mg/dL AST (5-37) U/L ALT (0-40) U/L Alkaline Phosphatase (39-117) U/L B-Natriuretic Peptide (<100) pg/mL Total Protein (6.5-8.0) g/dL Albumin (3.5-5.0) g/dL Urine Color YELLOW Urine Appearance HAZY Urine pH 6.5 (5.0-8.0) Ur Specific [place] 1.010 (1.005-1.025) Urine Protein NEG (NEG-TRACE) MG/DL Urine Glucose (UA) NEG (NEG) MG/DL Urine Ketones NEG (NEG) MG/DL Urine Blood NEG (NEG) Urine Nitrite POS H (NEG) Ur Leukocyte Esterase 2+ H (NEG) Urine RBC 0 (0) /HPF Urine WBC 15-29 H (0-4) /HPF Ur Squamous Epith Cells NONE /LPF Urine Bacteria 2+ /LPF COVID-19 (AFSANEH) (Negative) COVID-19 Clin Com ECG Data Attestation: I personally reviewed and interpreted this ECG as follows: Prior ECG tracings: available for review Interpretation: EKG with incomplete RBBB. rate 83. Unchanged from priors. No STEMI Discharge Plan Discharge Clinical Impression: Acute UTI Wound of lower extremity Qualifiers: Encounter type: initial encounter Laterality: unspecified laterality Qualified Code(s): S81.809A - Unspecified open wound, unspecified lower leg, initial encounter Instructions: Urinary Tract Infection in Men (ED), Chronic Wounds (ED) Additional Instructions: You have a urinary tract infection Your lower extremity wounds need attention by Wound Care and General surgery. Follow-up in the next 3-5 days. If her wounds worsen, become more red, you fever, chills return to the ED Prescriptions: New nitrofurantoin monohyd/m-cryst [Macrobid] 100 mg capsule 100 mg PO Q12H 7 Days Qty: 14 RF: 0 No Action multivitamin Tablet 1 tab PO DAILY RF: 0 aspirin 81 mg Tablet,Delayed Release (Dr/Ec) 81 mg PO DAILY RF: 0 quetiapine 25 mg Tablet 12.5 mg PO BEDTIME Qty: 30 RF: 0 levothyroxine 25 mcg Tablet 12.5 mcg PO DAILY@0600 Qty: 30 RF: 0 levothyroxine 50 mcg tablet 50 mcg PO DAILY RF: 0 ferrous sulfate 325 mg (65 mg iron) Tablet 325 mg PO DAILY RF: 0 clotrimazole 1 % Cream 1 appl TOPICAL BID PRN (Reason: Rash) RF: 0 finasteride 5 mg tablet 5 mg PO DAILY 90 Days Qty: 90 RF: 1 tamsulosin [Flomax] 0.4 mg capsule 0.4 mg PO BEDTIME 90 Days Qty: 90 RF: 0 Referrals: Jason Carvajal MD [Physician] - 3 days Tiara Gordon PA [Physician Higher Education Administrator] - 2 days
--- NOTE | 2020-12-16 10:42 | ECG_ITS ---
Test Reason : WEAKNESS Blood Pressure : / mmHG Vent. Rate : 083 BPM Atrial Rate : 094 BPM P-R Int : 000 ms QRS Dur : 108 ms QT Int : 408 ms P-R-T Axes : 000 -10 086 degrees QTc Int : 479 ms Poor data quality Possible Atrial fibrillation RSR' or QR pattern in V1 suggests right ventricular conduction delay Nonspecific ST and T wave abnormality Abnormal ECG When compared with ECG of 24-OCT-2020 01:04, Please repeat the EKG Possible Atrial fibrillation ST no longer elevated in Lateral leads QT has lengthened Referred By: Britni Murray Electronically Signed By:CHRISSY ESPARZA MD
--- NOTE | 2020-12-16 10:43 | PC.NURSE ---
bilateral lower leg wounds, redness noted to scroutum, buttocks, and lower abd. pt reports he was not changed (breif) since yesterday am. all ambulance linen and bed linen soaked through d/t brief being soaked. all linen changed. pt cleaned up and verna care provided. iv placed and labs obtained. xray at bedside.
[2020-12-16 10:44] LABS: MANUAL DIFF FLAG NO
[2020-12-16 10:47] LABS: Basophils Percent Auto 0.1 % (0-2); Eosinophils Absolute Auto 0.2 X10*3/uL (0.0-0.4); Eosinophils Percent Auto 2.1 % (0-4); Hematocrit 31.7 % (42-52); Hemoglobin 9.9 g/dl (14.0-18.0); Imm Gran Abs Auto 0.03 X10*3/uL (0.00-0.03); Imm Gran Pct Auto 0.4 % (0.0-0.4); Lymphocytes Absolute Auto 0.8 X10*3/uL (1.2-4.9); Lymphocytes Percent Auto 10.7 % (20-40); Mean Corpuscular HGB Conc 31.2 g/dl (31.0-36.0); Mean Corpuscular Hemoglobin 26.6 pg (27.0-33.0); Mean Corpuscular Volume 85.2 fL (80-98); Mean Platelet Volume 9.2 fL (9.4-12.4); Monocytes Absolute Auto 0.7 X10*3/uL (0.1-1.2); Monocytes Percent Auto 9.9 % (2-11); Neutrophils Absolute Auto 5.6 X10*3/uL (2.0-8.3); Neutrophils Percent Auto 76.8 % (45-73); Platelet Count 182 X10*3/uL (160-400); Red Blood Count 3.72 X10*6/uL (4.60-5.80); Red Cell Distribution Width 16.1 % (11.0-16.0); White Blood Count 7.3 X10*3/uL (4.8-10.8)
[2020-12-16 11:11] LABS: Lactic Acid 0.8 mmol/L (0.5-2.0)
[2020-12-16 11:14] LABS: Alanine Aminotransferase 26 U/L (0-40); Albumin Level 3.6 g/dL (3.5-5.0); Alkaline Phosphatase 103 U/L (39-117); Anion Gap 10 (12-20); Aspartate Amino Transferase 22 U/L (5-37); Bilirubin Direct 0.2 mg/dL (0.0-0.5); Bilirubin Total 0.5 mg/dL (0.0-1.0); Blood Urea Nitrogen 16 mg/dL (9-16); Calcium 10.4 mg/dL (8.4-10.2); Carbon Dioxide 30 mmol/L (22-29); Chloride 102 mmol/L (96-108); Creatinine Clr Calc Pharmacy 132.1; Estimated Glomerular Filt Rate > 60; Glucose Random 141 mg/dL (60-115); Magnesium 1.9 mg/dL (1.6-2.6); Potassium 4.7 mmol/L (3.3-5.1); Sodium 137 mmol/L (135-145); Total Protein 6.4 g/dL (6.5-8.0)
[2020-12-16 11:16] LABS: COVID-19 Test Negative (Negative)
[2020-12-16 11:31] LABS: B Type Natriuretic Peptide 42 pg/mL (<100)
[2020-12-16 12:21] LABS: Glucose Urine UA NEG (NEG); Leukocyte Esterase Urine 2+ (NEG); Nitrite Urine POS (NEG); PH 6.5 (5.0-8.0); UACC Culture Trigger YES; Urine Blood NEG (NEG); Urine Ketones NEG (NEG); Urine Protein NEG (NEG-TRACE)
[2020-12-16 12:22] LABS: Appearance Urine HAZY; Color Urine YELLOW
[2020-12-16 12:31] LABS: Bacteria Urine 2+ /LPF; RBC Urine 0 /HPF (0)
--- NOTE | 2020-12-16 13:03 | MHC.CM.ED ---
Patient is currently in the ER due to failure to thrive and leg wounds. Physical therapy is recommending tank terminal gauger care. Attempted to reach patient's sister/HCP, Ruby via telephone at [phone]. Left voicemail requesting return telephone call for discharge planning. Continue to monitor for d/c needs.
[2020-12-16] MEDS: Piperacillin Sodium/Tazobactam 3.375 GM in 0.9 % Sodium Chloride 50 ML IV (13:42)
--- NOTE | 2020-12-16 17:04 | PC.NURSE ---
leg wounds rewrapped pt tolerated well
--- NOTE | 2020-12-16 17:13 | PM.CNGS ---
History of Present Illness Consult details Consult date: 12/16/20 Narrative: 64M with multiple medical isssues including intellectual disability, obesity, brought to the ED from a grouop home because of failure to thrive. He has had a chronic right heel ulcer as well and has chronic stasis ulcer of both lower extremities. He is being seen at the wound clinic. He has been refusing dressing changes at the the [facility] home. I have been asked to consult in view of his right heel ulcer. He states he wants to go home. He denies any specific complaints of pain. He is not very conversant in view of his intellectual disability. Review of Systems Constitutional: Constitutional: Denies chills and Denies fever(s) Cardiovascular: Cardiovascular: Denies chest pain with activity Respiratory: Respiratory: Denies cough Gastrointestinal: Gastrointestinal: Denies abdominal pain Genitourinary: Genitourinary: Reports difficulty urinating Musculoskeletal: Musculoskeletal: Denies numbness Neurologic: Denies numbness PMFSH Past Medical History Medical History (Updated 12/16/20 @ 17:20 by Jason Carvajal MD) Adrenal hypofunction Anemia BPH w urinary obs/LUTS Decubitus ulcer, heel Diabetes type 2, controlled DVT (deep venous thrombosis) Hypertension Hypothyroidism Intellectual disability Morbid obesity Pancytopenia Pressure ulcer of right heel, unstageable Tegretol toxicity Urinary retention with incomplete bladder emptying Venous insufficiency of both lower extremities VRE (vancomycin resistant enterococcus) culture positive Weak urinary stream Social History Social History Household Members: Other Housing: Other Alcohol intake: never Smoking Status: Never smoker Smoked in Last 30 Days: No Second Hand Smoke Exposure: No Use of substances other than those prescribed or required for medical reasons: No Advance Directives: Yes Advance Directives on File: Yes Advance Directives Date on File: 08/16/20 service: No Current occupational status: disabled Meds Allergies Allergy/AdvReac Type Severity Reaction Status Date / Time No Known Allergies Allergy Verified 08/24/20 07:57 [No Known Allergies*] Home Medications Medication Instructions Recorded Confirmed Type multivitamin 1 tab PO DAILY 08/23/20 12/16/20 History aspirin 81 mg PO DAILY 08/24/20 12/16/20 History clotrimazole 1 appl TOPICAL BID PRN 12/16/20 12/16/20 History ferrous sulfate 325 mg PO DAILY 12/16/20 12/16/20 History levothyroxine 50 mcg PO DAILY 12/16/20 12/16/20 History Physical Exam Vital Signs: Vital Signs: Last Vital Signs Temp 98.7 F 12/16/20 10:13 Pulse 62 12/16/20 12:30 Resp 16 12/16/20 10:13 BP 109/68 12/16/20 12:30 Pulse Ox 100 12/16/20 12:30 Body Mass Index 37.8 Const: General: comfortable and no acute distress Orientation/consciousness: patient oriented x3 Neck: Neck: Yes no lymphadenopathy Resp: Auscultation: clear to auscultation bilaterally Cardio: Rhythm: regular rhythm GI: Palpation (GI): Soft to palpation, nontender and no guarding Neuro: General: patient oriented x3 Extrem: Other: superficial ulcers on the lower legs, left and right with weeping, edema; there is a right heel ucler, about 4x4 cm, with discolored skin, likely a stage 2, no cellulitis, no pus, no fluctuance Results Labs Result diagrams: 12/16/20 10:38 12/16/20 10:38 Labs: Abnormal lab results 12/16/20 12/16/20 12/16/20 Range/Units 10:38 10:38 10:38 RBC 3.72 L D (4.60-5.80) X10*6/uL Hgb 9.9 L (14.0-18.0) g/dl Hct 31.7 L (42-52) % MCH 26.6 L (27.0-33.0) pg RDW 16.1 H (11.0-16.0) % MPV 9.2 L (9.4-12.4) fL Neut % (Auto) 76.8 H (45-73) % Lymph % (Auto) 10.7 L (20-40) % Lymph # (Auto) 0.8 L (1.2-4.9) X10*3/uL APTT 48.0 H (24.1-38.0) SEC Carbon Dioxide 30 H (22-29) mmol/L Anion Gap 10 L (12-20) Random Glucose 141 H (60-115) mg/dL Calcium 10.4 H D (8.4-10.2) mg/dL Total Protein 6.4 L (6.5-8.0) g/dL Urine Nitrite (NEG) Ur Leukocyte Esterase (NEG) Urine WBC (0-4) /HPF 12/16/20 Range/Units 12:12 RBC (4.60-5.80) X10*6/uL Hgb (14.0-18.0) g/dl Hct (42-52) % MCH (27.0-33.0) pg RDW (11.0-16.0) % MPV (9.4-12.4) fL Neut % (Auto) (45-73) % Lymph % (Auto) (20-40) % Lymph # (Auto) (1.2-4.9) X10*3/uL APTT (24.1-38.0) SEC Carbon Dioxide (22-29) mmol/L Anion Gap (12-20) Random Glucose (60-115) mg/dL Calcium (8.4-10.2) mg/dL Total Protein (6.5-8.0) g/dL Urine Nitrite POS H (NEG) Ur Leukocyte Esterase 2+ H (NEG) Urine WBC 15-29 H (0-4) /HPF Short CBC 12/16/20 Range/Units 10:38 WBC 7.3 (4.8-10.8) X10*3/uL Hgb 9.9 L (14.0-18.0) g/dl Hct 31.7 L (42-52) % Plt Count 182 D (160-400) X10*3/uL BMP 12/16/20 10:38 Sodium 137 Potassium 4.7 Chloride 102 Carbon Dioxide 30 H BUN 16 Creatinine 0.68 Calcium 10.4 H D Liver Function 12/16/20 Range/Units 10:38 Total Bilirubin 0.5 (0.0-1.0) mg/dL Direct Bilirubin 0.2 (0.0-0.5) mg/dL AST 22 D (5-37) U/L ALT 26 (0-40) U/L Alkaline Phosphatase 103 (39-117) U/L Albumin 3.6 (3.5-5.0) g/dL Urine 12/16/20 Range/Units 12:12 Urine Color YELLOW Urine Appearance HAZY Urine pH 6.5 (5.0-8.0) Ur Specific [place] 1.010 (1.005-1.025) Urine Protein NEG (NEG-TRACE) MG/DL Urine Glucose (UA) NEG (NEG) MG/DL All other labs normal. Assessment and Plan (1) Decubitus ulcer, heel: Status: Acute He has a decub ulcer on the right heel as described above that is likely a stage 2 at least. There is no evidence of any pus and his imaging studies do not show osteomyelitis at this time. This also appears chronic based on his records. He does not have leukocytosis at this time. I am strongly recommending keeping the heel off of the bed with pillows under the calf. He may need debridement down the line. I will follow along if he gets admitted, otherwise I can see him in the office for a ffup. He is also to continue to follow the Wound Clinic as well.
--- NOTE | 2020-12-16 20:23 | MHC.CM.ED ---
Awaiting PASSR waiver, filed today. CM spoke with HCP and sister, Ruby Riley([phone]). Per HCP, pt is in the process of moving to the [facility], [facility], as they have nursing care 07/06, located at [address] [place] [address]. HCP wondering if her brother could be transferred there or if he could go there after STR for nursing care at [facility]. HCP accepting [facility].CM spoke with Contact Lanie Long ([phone]) of [facility], who tells CM that they are in the process of transitioning Pt. to their facility, but would need a week or two. Feels it is reasonable to have pt go to [facility] and then transition to her facility. Lanie will discuss pt. situation with his [facility] careworker, Michael Underwood ([phone]). CM spoke with Nayan Mejía, contact at current nursing home who agrees that transitioning from [facility] directly to [facility] would be beneficial for pt with less transitioning. At this time, future placement after STR, should go through current nursing home contact (Nayan Mejía) and the HCP, Ruby Riley. All are aware that the PASSR has been filed and can take 24-72 hours. For clarity, contacts are as follows: Nayan Mejía, current nursing home ([phone]) Ruby Riley, sister/HCP ([phone]) Lanie Long, new contact at [facility] ([phone]) Michael Underwood, [facility] activities attendant ([phone]) CM to f/u with telephone call tomorrow with sister Beltran/HCP. CM to follow for d/c needs
--- NOTE | 2020-12-16 20:52 | MHC.CM.ED ---
Per Nyaan Mejía, contact [facility] ([phone]), current [facility] does not have 24/7 nursing care and pt dressing changes are contracted to [facility]. Problem is that pt, at times, refuses drsg changes when VNA nurse is at the facility. He can often times be re-directed later to have his dressings changed, but the VNA only comes once/day. Pt would benefit from home where nursing services are more readily available.
--- NOTE | 2020-12-17 09:08 | MHC.CM.ED ---
Patient remains in ER. [facility] is able to offer a bed. Patient is active with [facility]. Waiting for [facility] to provide PASRR letter. Screen was already sent. Continue to monitor for d/c needs.
[2020-12-17 11:24] VITALS: BP 122/68; PULSE 91; RESP 18; TEMP 37.1; O2SAT 99
--- NOTE | 2020-12-17 12:02 | PC.NURSE ---
incontinent of urine again, pt seems to urinat continually. in tariq of a brief a blue brendon and facecloth were placed. pt moved back to hallway following clearning. dsg on ble's remains clean, dry, intact. pt requesting snacks frequently.
[2020-12-17] MEDS: Levothyroxine Sodium 25 MCG TABLET 12.5 MCG PO (13:12)
[2020-12-17] MEDS: Nitrofurantoin Monohyd/M-Cryst 100 MG CAPSULE PO (13:13)
[2020-12-17] MEDS: Multivitamin TABLET 1 TAB PO (13:13)
[2020-12-17] MEDS: Levothyroxine Sodium 50 MCG TABLET PO (13:14)
[2020-12-17] MEDS: Finasteride 5 MG TABLET PO (13:14)
[2020-12-17] MEDS: Clotrimazole 1 % Cream 15 GM TUBE 1 APPL TOPICAL (13:14)
[2020-12-17] MEDS: Ferrous Sulfate 324 MG TABLET.DR PO (13:14)
[2020-12-17] MEDS: Aspirin Enteric Coated 81 MG TABLET.DR PO (13:14)
--- NOTE | 2020-12-17 14:07 | MHC.CM.ED ---
Patient remains in ER. Sent an email to [facility] asking about progress of PASRR letter. No response given at this time. Left a voicemail at [phone]. Waiting for response. Continue to monitor for d/c needs.
[2020-12-17 14:36] VITALS: BP 169/74; PULSE 85; RESP 18; TEMP 36.5; O2SAT 98
--- NOTE | 2020-12-17 16:58 | MHC.CM.ED ---
Addendum entered by Tiffanie Damico 12/17/20 17:19: RN aware. Original Note: PASSR waiver obtained. Uploaded into [employer]. [facility] aware and able to accept pt. [facility] booked for 1730 to transport pt to [facility]. Sister/HCP Ruby aware. Given [facility] contact information. Nayan Mejía, contact at current residential notified of transfer. [facility] contact info given. Tells CM she has been in contact with potential new residential, Lanie Stefanikhurram, to arrange for pt transition to [facility] residential in [place]. Nayan requests that pt call her this evening. ALEYDA spoke with pt and explained plan. Pt understands that the home he is going to [facility] is just for 1-2 weeks, as they have nurses to care for his legs, and then he will move to a new home. Asked if his belongings and records will move with hime. Reassured pt that all of his belongings will move with him and that Nayan will explain all of this to him. Pt is aware that CM spoke with his sister. Will follow for d/c needs.
== END 2020-12-17 19:16 | disposition skilled nursing facility (03) ==
PROVIDERS: Physician Assistant; Emergency Provider Emergency Medicine; PCP Internal Medicine
DX: L89.619 Pressure ulcer of right heel, unspecified stage (principal); N30.00 Acute cystitis without hematuria; R62.7 Adult failure to thrive; Z20.822 Contact with and (suspected) exposure to COVID-19; E11.9 Type 2 diabetes mellitus without complications; I10 Essential (primary) hypertension; Z48.01 Encounter for change or removal of surgical wound dressing; Z86.718 Personal history of other venous thrombosis and embolism
CPT/HCPCS: 36415; 71045; 73630; 80048; 80076; 81001; 81003; 83605; 83735; 83880; 85025; 85610; 85730; 87040; 87086; 87635; 93005; 96365; 97162; 99283; 99284; 99285; J2543

== ENCOUNTER 2021-01-06 11:24 | Outpatient (REF) | payer MEDICARE, MEDICAID, SELFPAY ==
--- NOTE | ~2021-01-06 | XR_ITS ---
EXAMINATION: XR CALCANEUS, RIGHT CLINICAL INFORMATION: Right calcaneus wound COMPARISON: 12/16/2020 TECHNIQUE: Lateral and axial views of the right calcaneus were obtained. FINDINGS: There is enthesopathy of the distal Achilles tendon attachment. Moderate plantar calcaneal osteophyte is present. Diffuse osteopenia. There are vascular calcifications consistent with diabetes. There is soft tissue irregularity of the heel. An overlying bandage results in artifact that limits evaluation. On the axial views, there is loss of definition of the cortex of the posterior calcaneus on the axial view. The appearance is similar to the prior CT scan 10/24/2020. Osteomyelitis could give this appearance. XR/XR calcaneus RT min 2V IMPRESSION: There is loss of cortical definition of the posterior calcaneus on the axial views in the region of soft tissue irregularity. Osteomyelitis could give this appearance. Consider correlation with MRI as clinically indicated.
== END 2021-01-06 11:25 | disposition home or self-care (01) ==
LOC: HO.XRAY 11:24
PROVIDERS: Visit Provider Physician Assistant
DX: S90.921A Unspecified superficial injury of right foot, initial encounter (principal)
CPT/HCPCS: 73650

== ENCOUNTER 2021-01-22 12:34 | Outpatient (REF) | payer MEDICARE, MEDICAID, SELFPAY ==
[2021-01-22 13:56] LABS: MANUAL DIFF FLAG NO
[2021-01-22 13:59] LABS: Basophils Percent Auto 0.3 % (0-2); Eosinophils Absolute Auto 0.3 X10*3/uL (0.0-0.4); Eosinophils Percent Auto 3.7 % (0-4); Hemoglobin 11.2 g/dl (14.0-18.0); Imm Gran Abs Auto 0.02 X10*3/uL (0.00-0.03); Imm Gran Pct Auto 0.3 % (0.0-0.4); Lymphocytes Absolute Auto 1.3 X10*3/uL (1.2-4.9); Lymphocytes Percent Auto 16.8 % (20-40); Mean Corpuscular Hemoglobin 26.1 pg (27.0-33.0); Mean Corpuscular Volume 81.6 fL (80-98); Mean Platelet Volume 10.2 fL (9.4-12.4); Monocytes Absolute Auto 0.6 X10*3/uL (0.1-1.2); Monocytes Percent Auto 7.8 % (2-11); Neutrophils Absolute Auto 5.5 X10*3/uL (2.0-8.3); Neutrophils Percent Auto 71.1 % (45-73); Platelet Count 216 X10*3/uL (160-400); Red Blood Count 4.29 X10*6/uL (4.60-5.80); White Blood Count 7.7 X10*3/uL (4.8-10.8)
[2021-01-22 14:30] LABS: Alanine Aminotransferase 14 U/L (0-40); Albumin Level 3.4 g/dL (3.5-5.0); Alkaline Phosphatase 105 U/L (39-117); Anion Gap 10 (12-20); Aspartate Amino Transferase 14 U/L (5-37); Bilirubin Total 0.5 mg/dL (0.0-1.0); Blood Urea Nitrogen 17 mg/dL (9-16); Calcium 10.1 mg/dL (8.4-10.2); Carbon Dioxide 29 mmol/L (22-29); Chloride 101 mmol/L (96-108); Estimated Glomerular Filt Rate > 60; Glucose Random 192 mg/dL (60-115); Iron 32 mcg/dL (45-160); Percent Iron Saturation 12 % (15-50); Potassium 4.3 mmol/L (3.3-5.1); Sodium 136 mmol/L (135-145); Total Iron Binding Capacity 270 mcg/dL (228-428); Total Protein 6.1 g/dL (6.5-8.0); Unsaturated Iron Binding 238 ug/dL
[2021-01-22 14:33] LABS: Estimated Average Glucose 174 mg/dL; Hemoglobin A1c % 7.7 %
[2021-01-22 14:52] LABS: Free T4 (Free Thyroxine) 1.12 ng/dL (0.71-1.85); Thyroid Stimulating Hormone 1.38 uIU/mL (0.32-4.0)
[2021-01-24 17:10] LABS: Vitamin B12 375 pg/mL (200-900)
== END 2021-01-22 12:35 | disposition home or self-care (01) ==
LOC: HO.10HDL 12:34
PROVIDERS: Visit Provider Internal Medicine
DX: E11.9 Type 2 diabetes mellitus without complications (principal); M41.9 Scoliosis, unspecified; E03.9 Hypothyroidism, unspecified; R60.9 Edema, unspecified
CPT/HCPCS: 36415; 80053; 82306; 82607; 83036; 83540; 84439; 84443; 85025

== ENCOUNTER 2021-02-10 09:51 | Outpatient (REF) | payer MEDICARE, MEDICAID, SELFPAY ==
--- NOTE | ~2021-02-10 | US_ITS ---
EXAMINATION: US ARTERIAL DUPLEX DOPPLER, LOWER EXTREMITY, RIGHT CLINICAL INFORMATION: Chronic right leg ulcer. COMPARISON: 06/15/2017 TECHNIQUE: Real-time ultrasound and Doppler techniques (integrating B-mode 2D vascular images, Doppler spectral analysis and color flow Doppler imaging) were utilized to interrogate the right lower extremity arterial system. FINDINGS: The common femoral artery has a triphasic waveform with peak systolic velocity of 157 cm/s. The profunda femoral artery has a monophasic waveform with peak systolic velocity of 71 cm/s. The proximal superficial femoral artery has a triphasic waveform with peak systolic velocity of 124 cm/s. The mid superficial femoral artery has a triphasic waveform with peak systolic velocity of 103 cm/s. The distal superficial femoral artery has a triphasic waveform with peak systolic velocity of 109 cm/s. The popliteal artery has a monophasic waveform with peak systolic velocity of 117 cm/s. There is extensive dressing overlying the calf with inability to study the proximal posterior tibial and peroneal arteries. US/US arterial duplex LE RT IMPRESSION: No hemodynamically significant arterial stenosis identified from common femoral artery to the distal superficial femoral artery. Question hemodynamically significant stenosis in the region of the adductor canal; however, the arterial velocities are not elevated at any point sampled along this region and the appearance of a monophasic waveform may be related to imaging. ABIs may be of help in evaluation of significant atherosclerotic disease.
== END 2021-02-10 09:52 | disposition home or self-care (01) ==
LOC: HO.US 09:51
PROVIDERS: Visit Provider Physician Assistant
DX: L97.811 Non-pressure chronic ulcer of other part of right lower leg limited to breakdown of skin (principal)
CPT/HCPCS: 93926

== ENCOUNTER 2021-05-14 12:21 | Outpatient (REF) | payer MEDICARE, MEDICAID, SELFPAY ==
[2021-05-14 13:44] LABS: MANUAL DIFF FLAG NO
[2021-05-14 13:57] LABS: Basophils Percent Auto 0.6 % (0-2); Eosinophils Absolute Auto 0.3 X10*3/uL (0.0-0.4); Hematocrit 40.2 % (42-52); Hemoglobin 12.8 g/dl (14.0-18.0); Imm Gran Abs Auto 0.01 X10*3/uL (0.00-0.03); Imm Gran Pct Auto 0.1 % (0.0-0.4); Lymphocytes Absolute Auto 1.1 X10*3/uL (1.2-4.9); Mean Corpuscular HGB Conc 31.8 g/dl (31.0-36.0); Mean Corpuscular Hemoglobin 26.8 pg (27.0-33.0); Mean Corpuscular Volume 84.3 fL (80-98); Monocytes Absolute Auto 0.5 X10*3/uL (0.1-1.2); Monocytes Percent Auto 7.8 % (2-11); Neutrophils Percent Auto 71.5 % (45-73); Platelet Count 234 X10*3/uL (160-400); Red Blood Count 4.77 X10*6/uL (4.60-5.80); Red Cell Distribution Width 17.6 % (11.0-16.0); White Blood Count 6.9 X10*3/uL (4.8-10.8)
[2021-05-14 14:20] LABS: Alanine Aminotransferase 24 U/L (0-40); Albumin Level 3.8 g/dL (3.5-5.0); Alkaline Phosphatase 81 U/L (39-117); Anion Gap 12 (12-20); Aspartate Amino Transferase 19 U/L (5-37); Bilirubin Total 0.2 mg/dL (0.0-1.0); Blood Urea Nitrogen 15 mg/dL (9-16); Carbon Dioxide 25 mmol/L (22-29); Chloride 107 mmol/L (96-108); Estimated Glomerular Filt Rate > 60; Glucose Random 161 mg/dL (60-115); Potassium 4.5 mmol/L (3.3-5.1); Sodium 139 mmol/L (135-145); Total Protein 6.5 g/dL (6.5-8.0)
[2021-05-14 14:23] LABS: Estimated Average Glucose 126 mg/dL
[2021-05-14 14:27] LABS: Thyroid Stimulating Hormone 0.81 uIU/mL (0.32-4.0)
[2021-05-14 20:51] LABS: PSA,Total (Free>4and<10) 0.21 ng/mL (0.00-4.00)
== END 2021-05-14 12:22 | disposition home or self-care (01) ==
LOC: HO.10HDL 12:21
PROVIDERS: Urology; Visit Provider Internal Medicine
DX: Z12.5 Encounter for screening for malignant neoplasm of prostate (principal); E11.9 Type 2 diabetes mellitus without complications; E03.9 Hypothyroidism, unspecified; N40.0 Benign prostatic hyperplasia without lower urinary tract symptoms; N40.1 Benign prostatic hyperplasia with lower urinary tract symptoms; N13.8 Other obstructive and reflux uropathy
CPT/HCPCS: 36415; 80053; 83036; 84153; 84439; 84443; 85025

== ENCOUNTER 2021-08-12 12:29 | Outpatient (REF) | payer MEDICARE, MEDICAID, SELFPAY ==
[2021-08-12 13:46] LABS: MANUAL DIFF FLAG NO
[2021-08-12 13:58] LABS: Basophils Percent Auto 0.4 % (0-2); Eosinophils Absolute Auto 0.4 X10*3/uL (0.0-0.4); Eosinophils Percent Auto 5.1 % (0-4); Hematocrit 42.4 % (42-52); Hemoglobin 13.7 g/dl (14.0-18.0); Imm Gran Abs Auto 0.03 X10*3/uL (0.00-0.03); Imm Gran Pct Auto 0.4 % (0.0-0.4); Lymphocytes Percent Auto 14.6 % (20-40); Mean Corpuscular HGB Conc 32.3 g/dl (31.0-36.0); Mean Corpuscular Volume 86.7 fL (80-98); Mean Platelet Volume 9.4 fL (9.4-12.4); Monocytes Absolute Auto 0.7 X10*3/uL (0.1-1.2); Monocytes Percent Auto 9.6 % (2-11); Neutrophils Absolute Auto 4.9 X10*3/uL (2.0-8.3); Neutrophils Percent Auto 69.9 % (45-73); Platelet Count 202 X10*3/uL (160-400); Red Blood Count 4.89 X10*6/uL (4.60-5.80); Red Cell Distribution Width 14.3 % (11.0-16.0); White Blood Count 7.1 X10*3/uL (4.8-10.8)
[2021-08-12 14:02] LABS: Alanine Aminotransferase 26 U/L (0-40); Albumin Level 3.8 g/dL (3.5-5.0); Alkaline Phosphatase 80 U/L (39-117); Anion Gap 13 (12-20); Aspartate Amino Transferase 20 U/L (5-37); Bilirubin Total 0.5 mg/dL (0.0-1.0); Blood Urea Nitrogen 10 mg/dL (9-16); Calcium 10.4 mg/dL (8.4-10.2); Carbon Dioxide 25 mmol/L (22-29); Chloride 102 mmol/L (96-108); Estimated Glomerular Filt Rate > 60; Glucose Random 218 mg/dL (60-115); Potassium 4.4 mmol/L (3.3-5.1); Sodium 136 mmol/L (135-145); Total Protein 6.5 g/dL (6.5-8.0)
[2021-08-12 14:15] LABS: Estimated Average Glucose 146 mg/dL; Hemoglobin A1c % 6.7 %
[2021-08-12 14:22] LABS: Free T4 (Free Thyroxine) 0.97 ng/dL (0.71-1.85); Thyroid Stimulating Hormone 1.17 uIU/mL (0.32-4.0)
== END 2021-08-12 12:30 | disposition home or self-care (01) ==
LOC: HO.10HDL 12:29
PROVIDERS: Visit Provider Internal Medicine
DX: E11.9 Type 2 diabetes mellitus without complications (principal); E03.9 Hypothyroidism, unspecified; R60.0 Localized edema; A49.02 Methicillin resistant Staphylococcus aureus infection, unspecified site
CPT/HCPCS: 36415; 80053; 83036; 84439; 84443; 85025; 87071; 87077; 87186; 87205

== ENCOUNTER → 2021-10-15 08:56 | Outpatient (BNVA) | payer MEDICARE, MEDICAID, SELFPAY | PROVIDERS: PCP Internal Medicine; Visit Provider Urology | DX: N40.1 Benign prostatic hyperplasia with lower urinary tract symptoms (principal); N13.8 Other obstructive and reflux uropathy; N39.0 Urinary tract infection, site not specified | CPT/HCPCS: 99212 ==

== ENCOUNTER → 2022-04-17 09:20 | Outpatient (BNVA) | payer MEDICARE, MEDICAID, SELFPAY | PROVIDERS: PCP Internal Medicine; Visit Provider Urology | DX: N40.1 Benign prostatic hyperplasia with lower urinary tract symptoms (principal); N13.8 Other obstructive and reflux uropathy; N39.0 Urinary tract infection, site not specified | CPT/HCPCS: Q3014 ==

== ENCOUNTER → 2022-10-16 10:48 | Outpatient (BNVA) | payer MEDICARE, MEDICAID, SELFPAY | PROVIDERS: PCP Internal Medicine; Visit Provider Urology | DX: N40.1 Benign prostatic hyperplasia with lower urinary tract symptoms (principal); N13.8 Other obstructive and reflux uropathy; N39.0 Urinary tract infection, site not specified | CPT/HCPCS: 99212 ==

== ENCOUNTER 2023-10-15 11:19 | Outpatient (AMB) | payer MEDICARE, MEDICAID, SELFPAY ==
--- NOTE | 2023-10-15 11:24 | A.OFFVIS_ITS ---
Intake Intake Visit Reasons: 1yr follow up/PVR Intake Note: Patient is present for Follow up Allergies No Known Allergies [No Known Allergies*] Allergy (Verified 04/17/22 09:21) Medication List - Last Reconciled 10/15/23 by Marck Chavarria MD ascorbic acid (vitamin C) 1 g PO DAILY 90 days aspirin 81 mg PO DAILY blood sugar diagnostic (FreeStyle Lite Strips) As directed clotrimazole 1% 1 appl topical BID PRN ferrous sulfate 325 mg PO DAILY finasteride 5 mg PO DAILY 90 days fluconazole 0 mg PO levothyroxine 12.5 mcg (1/2 x 25 mcg) PO DAILY@0600 levothyroxine 50 mcg PO DAILY metformin 1,000 mg PO BID methenamine hippurate 1 g PO DAILY 90 days miconazole nitrate 2% appl topical multivitamin 1 tab PO DAILY nitrofurantoin monohyd/m-cryst 100 mg (Macrobid) 100 mg PO Q12H 7 days nystatin 1 appl topical BID nystatin (Nystop) 1 appl topical BID-TID quetiapine 12.5 mg (1/2 x 25 mg) PO BEDTIME sulfacetamide sodium 10% 0 drps ophthalmic (eye) tamsulosin 0.4 mg PO DAILY 90 days HPI HPI Comments History of Present Illness Details Blayne is a pleasant male. He is a patient of Dr. Barillas. He is seen for the following urologic conditions - urinary incontinence - recurring UTI Is a resident of a care facility Accompanied by caregivers Baseline uses pull up and combination prostate therapy with timed voiding Doing well with combination methenamine and vitamin-C No UTI since last visit Staff states does use products for constipation as necessary 12 month follow-up Lower urinary tract symptoms Current visit is for - Further evaluation of lower urinary tract symptoms. Predominantly obstructive. Current treatment includes Combination therapy with alpha-corey and finasteride Prior treatments include - None Prostate Symptom Score Difficult to ascertain Symptoms include Incomplete bladder emptying, weak stream PSA - 05/05 0.2 Associated conditions Developmental delay Psychiatric Diagnosis yes Testing at next visit will include -bladder scan Treatment plan - continue with current medications [facility] Medical History Decubitus ulcer, heel Pressure ulcer of right heel, unstageable Weak urinary stream BPH w urinary obs/LUTS Urinary retention with incomplete bladder emptying VRE (vancomycin resistant enterococcus) culture positive Adrenal hypofunction Tegretol toxicity Venous insufficiency of both lower extremities Pancytopenia Hypertension Anemia Intellectual disability Morbid obesity Diabetes type 2, controlled Hypothyroidism DVT (deep venous thrombosis) Social History Household Members: Other Household Members Other:: skilled nursing Housing: Other Housing Other:: skilled nursing Do you presently have visiting nurse or other home services: Yes Alcohol intake: never Comment: tab alarm on pt Second Hand Smoke Exposure: No Advance Directives Date on File: 08/16/20 service: No Current occupational status: disabled Review of Systems Const Denies chills and Denies fever(s) Card Reports no additional complaints and Denies syncope Resp Denies cough GI Denies abdominal pain and Denies heartburn Reports as per HPI and Denies change in libido Neuro Denies syncope Psych Denies change in libido Endo Denies change in libido Physical Exam Const General: cooperative, healthy appearing, comfortable and no acute distress Orientation/consciousness: patient oriented x3 HEENT Face and sinus: Yes normal facial exam Mouth: moist mucous membranes Neck Neck: Yes normal visual inspection, Yes full ROM and Yes trachea midline Chest Chest palpation & inspection: normal inspection of the chest Resp Effort & Inspection: normal respiratory effort, able to speak in complete sentences and no respiratory distress GI Inspection: Yes normal to inspection Back/Spine/Pelvis Cervical Spine: normal cervical lordosis Thoracic/Lumbar Spine: thoracic and lumbar spine normal to inspection Skin General skin exam: no rashes or lesions noted Neuro General: patient oriented x3, gait normal, tone normal and moves all extremities Extrem General: Yes normal to inspection and Yes capillary refill normal Assessment & Plan Assessment & Plan (1) BPH w urinary obs/LUTS: Comment: July 2020 urinary retention Code(s): N40.1 - Benign prostatic hyperplasia with lower urinary tract symptoms; N13.8 - Other obstructive and reflux uropathy (2) Recurrent UTI (urinary tract infection): Code(s): N39.0 - Urinary tract infection, site not specified Plan 12 month follow-up Orders: Orders Prostate Specific Antigen 364 Days N13.8 - Other obstructive and reflux uropathy, N40.1 - Benign prostatic hyperplasia with lower urinary tract symptoms Medications: Refilled finasteride 5 mg PO DAILY 90 days 90 tabs 3RF N40.1 - Benign prostatic hyperplasia with lower urinary tract symptoms, R33.9 - Retention of urine, unspecified tamsulosin 0.4 mg PO DAILY 90 days 90 caps 3RF N13.8 - Other obstructive and reflux uropathy, N40.1 - Benign prostatic hyperplasia with lower urinary tract symptoms methenamine hippurate 1 g PO DAILY 90 days 90 tabs 3RF N39.0 - Urinary tract infection, site not specified ascorbic acid (vitamin C) 1 g PO DAILY 90 days 90 tabs 3RF N39.0 - Urinary tract infection, site not specified Patient Instructions: Imaging studies, laboratory and physical exam results were discussed and reviewed in detail. No major barriers to patient understanding were identified. An opportunity to ask questions regarding the treatment plan was provided. All questions were answered. The patient expressed understanding and agreement with the above treatment plan. The patient is aware they should contact our office by phone for worsening of their current condition or the appearance of new urologic symptoms. Compliance is encouraged with any medications and followup testing that is ordered. It is a privilege to participate in the urologic care of your patient. If you have any questions or concerns regarding treatment for the above conditions, or other urologic issues, please do not hesitate to contact me. The office telephone contact is [phone]. This note is constructed using voice recognition software. While every effort has been made to ensure accuracy transformer builder errors may have been included. Yours sincerely, Dr Marck Chavarria MD, [facility] - Urology Providers of Expert, Compassionate Care for the Genitourinary System Coding Level of Care Code Est Pt Level 4 (28027) Diagnoses BPH w urinary obs/LUTS N40.1; N13.8 Recurrent UTI (urinary tract infection) N39.0
== END 2023-10-15 11:41 | disposition home or self-care (01) ==
LOC: HO.HUSH 11:19
PROVIDERS: PCP Internal Medicine; Visit Provider Urology
DX: N40.1 Benign prostatic hyperplasia with lower urinary tract symptoms (principal); N13.8 Other obstructive and reflux uropathy; N39.0 Urinary tract infection, site not specified
CPT/HCPCS: 99213

== ENCOUNTER → 2023-10-15 11:19 | Outpatient (BNVA) | payer MEDICARE, MEDICAID, SELFPAY | PROVIDERS: PCP Internal Medicine; Visit Provider Urology | DX: N40.1 Benign prostatic hyperplasia with lower urinary tract symptoms (principal); N13.8 Other obstructive and reflux uropathy; N39.0 Urinary tract infection, site not specified | CPT/HCPCS: 99212 ==

== ENCOUNTER 2024-10-17 10:08 | Outpatient (AMB) | payer MEDICARE, MEDICAID, SELFPAY ==
--- NOTE | 2024-10-17 10:11 | A.OFFVIS_ITS ---
Intake Visit Reasons: 1Y PSA(set)[facility] Intake Note: Patient is present for 1Y PSA Follow Up Urology Medication: Ascorbic Acid, Methenamine, Finasteride Blood Thinner: Aspirin Board Mixer Tender Required: No Allergies No Known Allergies [No Known Allergies*] Allergy (Verified 10/17/24 10:12) HPI Comments Details: Blayne is a pleasant male. He is a patient of Dr. Barillas. He is seen for the following urologic conditions - urinary incontinence - recurring UTI Telemedicine Evaluation 15 min Consultation [employer] Brittaney Video Yearly follow-up Discussed with staff member Has not had UTIs Refill medications Plan follow-up next year Is a resident of a care facility Accompanied by caregivers Baseline uses pull up and combination prostate therapy with timed voiding Doing well with combination methenamine and vitamin-C Staff states does use products for constipation as necessary Lower urinary tract symptoms Current visit is for - Further evaluation of lower urinary tract symptoms. Predominantly obstructive. Current treatment includes Combination therapy with alpha-corey and finasteride Prior treatments include - None Prostate Symptom Score Difficult to ascertain Symptoms include Incomplete bladder emptying, weak stream PSA - 05/05 0.2 Associated conditions Developmental delay Psychiatric Diagnosis yes Testing at next visit will include -bladder scan Treatment plan - continue with current medications PFSH Medical History Decubitus ulcer, heel Pressure ulcer of right heel, unstageable Weak urinary stream BPH w urinary obs/LUTS Urinary retention with incomplete bladder emptying VRE (vancomycin resistant enterococcus) culture positive Adrenal hypofunction Tegretol toxicity Venous insufficiency of both lower extremities Pancytopenia Hypertension Anemia Intellectual disability Morbid obesity Diabetes type 2, controlled Hypothyroidism DVT (deep venous thrombosis) Social History Household Members: Other Household Members Other:: skilled nursing Housing: Other Housing Other:: skilled nursing Do you presently have visiting nurse or other home services: Yes Alcohol intake: never Comment: tab alarm on pt Second Hand Smoke Exposure: No Advance Directives Date on File: 08/16/20 service: No Current occupational status: disabled Review of Systems Const All systems reviewed & are unremarkable except as noted in HPI and below Reports no additional complaints Resp Reports no additional complaints GI Reports no additional complaints Reports as per HPI Musc Reports no additional complaints Physical Exam Telemedicine evaluation Appropriate responses Regular breathing rate and rhythm HEENT Head: Yes normal to inspection Ears: hearing grossly normal bilaterally Eyes General: appearance normal, both eyes and all related structures Neck Neck: Yes normal visual inspection Chest Chest palpation & inspection: normal inspection of the chest Resp Effort & Inspection: normal respiratory effort and able to speak in complete sentences Telehealth Telehealth Telehealth Platform: ReferralCandy Location of provider rendering services: practice address Location of patient: address on file Patient Identification confirmed using: Name, : Yes Telehealth method: video Patient verbally consented to treatment: Yes Patient verbally consented to billing insurance company: Yes Patient informed of any privacy concerns related to visit: Yes Minutes spent on Phone/Video with Pt.: 15 Assessment & Plan Assessment & Plan (1) BPH w urinary obs/LUTS: Comment: July 2020 urinary retention Code(s): N40.1 - Benign prostatic hyperplasia with lower urinary tract symptoms; N13.8 - Other obstructive and reflux uropathy Category: Medical (2) Recurrent UTI (urinary tract infection): Code(s): N39.0 - Urinary tract infection, site not specified Category: Medical Plan Twelve month follow-up office Medications: Refilled methenamine hippurate 1 g PO DAILY 90 days 90 tabs 3RF N39.0 - Urinary tract infection, site not specified tamsulosin 0.4 mg PO DAILY 90 days 90 caps 3RF N13.8 - Other obstructive and reflux uropathy, N40.1 - Benign prostatic hyperplasia with lower urinary tract symptoms ascorbic acid (vitamin C) 1 g PO DAILY 90 days 90 tabs 3RF N39.0 - Urinary tract infection, site not specified finasteride 5 mg PO DAILY 90 days 90 tabs 3RF N40.1 - Benign prostatic hyperplasia with lower urinary tract symptoms, R33.9 - Retention of urine, unspecified Patient Instructions: Imaging studies, laboratory and physical exam results were discussed and reviewed in detail. No major barriers to patient understanding were identified. An opportunity to ask questions regarding the treatment plan was provided. All questions were answered. The patient expressed understanding and agreement with the above treatment plan. The patient is aware they should contact our office by phone for worsening of their current condition or the appearance of new urologic symptoms. Compliance is encouraged with any medications and followup testing that is ordered. It is a privilege to participate in the urologic care of your patient. If you have any questions or concerns regarding treatment for the above conditions, or other urologic issues, please do not hesitate to contact me. The office telephone contact is [phone]. This note is constructed using voice recognition software. While every effort has been made to ensure accuracy gardening supervisor errors may have been included. Yours sincerely, Dr Marck Chavarria MD, [facility] - Urology Providers of Expert, Compassionate Care for the Genitourinary System Coding Level of Care Code Tele Est Pt Level 4 (32919) Diagnoses BPH w urinary obs/LUTS N40.1; N13.8 Recurrent UTI (urinary tract infection) N39.0
== END 2024-10-17 12:16 | disposition home or self-care (01) ==
LOC: HO.HUSH 10:08
PROVIDERS: PCP Internal Medicine; Visit Provider Urology
DX: N40.1 Benign prostatic hyperplasia with lower urinary tract symptoms (principal); N13.8 Other obstructive and reflux uropathy; N39.0 Urinary tract infection, site not specified
CPT/HCPCS: 99214

== ENCOUNTER → 2024-10-17 10:08 | Outpatient (BNVA) | payer MEDICARE, MEDICAID, SELFPAY | PROVIDERS: PCP Internal Medicine; Visit Provider Urology ==

== ENCOUNTER 2025-10-18 10:15 | Outpatient (AMB) | payer MEDICARE, MEDICAID, SELFPAY ==
--- NOTE | 2025-10-18 10:16 | A.OFFVIS_ITS ---
Intake Visit Reasons: 1 yr MED REVIEW SET UA Intake Note: Patient is present for 1yr Follow Up Urology Medication:Finasteride , VIT-C , Tamsulosin Blood Thinner: Aspirin NKDA Bail Bonding Agent Required: No Accompanied by: Self / Same As Patient Allergies No Known Allergies (No Known Allergies*) Allergy (Verified 10/18/25 10:17) HPI Comments Details: Blayne is a pleasant male. He is a patient of Dr. Barillas. He is seen for the following urologic conditions - urinary incontinence - recurring UTI Telemedicine Evaluation 15 min Consultation [employer] Brittaney Video Yearly follow-up Discussed with staff member Has not had UTIs Refill medications - Plan follow-up next year Is a resident of a care facility Baseline uses pull up and combination prostate therapy with timed voiding Doing well with combination methenamine and vitamin-C Staff states does use products for constipation as necessary Lower urinary tract symptoms Current visit is for - Further evaluation of lower urinary tract symptoms. Predominantly obstructive. Current treatment includes Combination therapy with alpha-corey and finasteride Prior treatments include - None Prostate Symptom Score Difficult to ascertain Symptoms include Incomplete bladder emptying, weak stream PSA - 05/05 0.2 Associated conditions Developmental delay Psychiatric Diagnosis yes Testing at next visit will include -bladder scan Treatment plan - continue with current medications PFSH Medical History Decubitus ulcer, heel Pressure ulcer of right heel, unstageable Weak urinary stream BPH w urinary obs/LUTS Urinary retention with incomplete bladder emptying VRE (vancomycin resistant enterococcus) culture positive Adrenal hypofunction Tegretol toxicity Venous insufficiency of both lower extremities Pancytopenia Hypertension Anemia Intellectual disability Morbid obesity Diabetes type 2, controlled Hypothyroidism DVT (deep venous thrombosis) Social History Household Members: Other Household Members Other:: intermediate Housing: Other Housing Other:: intermediate Do you presently have visiting nurse or other home services: Yes Alcohol intake: never Comment: tab alarm on pt Second Hand Smoke Exposure: No Advance Directives Date on File: 08/16/20 service: No Current occupational status: disabled Telehealth Telehealth Telehealth Platform: [employer] Location of provider rendering services: practice address Location of patient: address on file Patient Identification confirmed using: Name, : Yes Telehealth method: video Patient verbally consented to treatment: Yes Patient verbally consented to billing insurance company: Yes Patient informed of any privacy concerns related to visit: Yes Minutes spent on Phone/Video with Pt.: 15 Assessment & Plan Assessment & Plan (1) BPH w urinary obs/LUTS: Comment: July 2020 urinary retention Code(s): N40.1 - Benign prostatic hyperplasia with lower urinary tract symptoms; N13.8 - Other obstructive and reflux uropathy Category: Medical (2) Recurrent UTI (urinary tract infection): Code(s): N39.0 - Urinary tract infection, site not specified Category: Medical Plan Twelve month follow-up office Medications: Refilled finasteride 5 mg PO DAILY 90 tabs 3RF 90 days N40.1 - Benign prostatic hyperplasia with lower urinary tract symptoms, R33.9 - Retention of urine, unspecified methenamine hippurate 1 g PO DAILY 90 tabs 3RF 90 days N39.0 - Urinary tract infection, site not specified tamsulosin 0.4 mg PO DAILY 90 caps 3RF 90 days N13.8 - Other obstructive and reflux uropathy, N40.1 - Benign prostatic hyperplasia with lower urinary tract symptoms Patient Instructions: This note is constructed using voice recognition software. While every effort has been made to ensure accuracy film and video editor errors may have been included. Imaging studies, laboratory and physical exam results were discussed and reviewed in detail. No major barriers to patient understanding were identified. An opportunity to ask questions regarding the treatment plan was provided. All questions were answered. The patient expressed understanding and agreement with the above treatment plan. The patient is aware they should contact our office by phone for worsening of their current condition or the appearance of new urologic symptoms. Compliance is encouraged with any medications and followup testing that is ordered. It is a privilege to participate in the urologic care of your patient. If you have any questions or concerns regarding treatment for the above conditions, or other urologic issues, please do not hesitate to contact me. The office telephone contact is [phone]. Sincerely, Dr Marck Chavarria MD, [facility] - Urology Compassionate Specialist Care for the Genitourinary System Coding Level of Care Code Tele Est Pt Level 4 (60371) Complex visit Add On G2211 Diagnoses BPH w urinary obs/LUTS N40.1; N13.8 Recurrent UTI (urinary tract infection) N39.0
--- OUTSIDE RECORDS SUMMARY | 2025-10-18 12:23 | XMS_ITS | Patient Health Record ---
Author Organization [facility] Address [address] [place] [id number] Care Team Providers Care Command Post Superintendent Name Role Phone Eran (RETIRED) Jason YANG Primary Care Provide r Marco Sheehan Jr Unavailable [phone] Reason For Referral No Information Medications Medication SIG (Take, Route, Frequency, Duration) Notes Start Date End Date Status B Complex - Tablet 1 Orally QD Active Levothyroxine Sodium 50 MCG Tablet 1 tablet on an empty stomach in the morning Orally Once a day Active Colyte with Flavor Packs 240 GM Solution Reconstituted As directed Orally Over the specified time.; Duration: 1 day(s) Active Tylenol 650 mg tablet 1 tablet Oral 4hrs prn Active Multi Vitamin/Minerals - Tablet 1 Orally QD Active metFORMIN HCl 500 MG Tablet 1 tablet wit h a meal Orally TWICE a day Active Levemir 100 UNIT/ML Solution 14 UNITS Subcutaneous qd Act suleiman Warfarin Sodium 10 MG Tablet 1 tablet Orally Once a day Active Lasix 40 MG Tablet 1 tablet Orally Once a day Active Nystop 490220 UNIT/GM Powder 1 application to affected area Externally Twice a day Active LamISIL AT 1 % Cream 1 application to af fected area Externally ONCE a day Active Immunizations Vaccine Route Administration Date Status Comme nts Influenza Unknown 09/28/2018 Refused Social History Tobacco Use: Social History Observation Description Date Details (start date - stop date) Never Smoker NA - NA Social History Drugs/Alcohol: Social Info Question Answer Notes Alcohol Screen Did you have a drink containing alcohol in the past year? No Points 0 Interpretation Negative Tobacco Use: Social Info Question Answer Notes Tobacco Use/Smoking Patient is a nonsmoker Additional Details Category Social Info Options Details Miscellaneous: Marital status: single Occupation: disabled Problems Problem Type SNOMED Code ICD Code Onset Dates Problem Status W/U Status Risk Notes Problem Colon cancer screening (073458209) Colon cancer screening (Z12.11) Active confirmed Problem Long-term current use of anticoagulant (700171224) superintendent terminal (current) use of anticoagulants (Z79.01) Active confirmed Problem Long-term current use of insulin (139793913) FDC (current) use of insulin (Z79.4) Active confirmed Plan Of Treatment Future Test Test Name Order Date COLONOSCOPY 09/28/2018 Insurance Providers Payer Name Payer Address Payer Phone Subscriber Number Group Number Insured Name Patient Relationship to Insured Coverage Start Date Coverage End Date MEDICA[employer] OF [email or web address] [address] [place] [phone] [id number] KATHLEEN JOHNSON Self - patient is the insured Medical (General) History Medical History History ICD Code hypothyroid diabetes mellitus Aspergers syndrome Surgical History Surgery Date(Month/Year) neck surgery
== END 2025-10-18 10:49 | disposition home or self-care (01) ==
LOC: HO.HUSH 10:15
PROVIDERS: PCP Internal Medicine; Visit Provider Urology
DX: N40.1 Benign prostatic hyperplasia with lower urinary tract symptoms (principal); N13.8 Other obstructive and reflux uropathy; N39.0 Urinary tract infection, site not specified
CPT/HCPCS: 99214; G2211